=== PATIENT | female | born 1960 | race Caucasian/White ===

== ENCOUNTER 2016-08-11 17:47 | Emergency (ER) | payer OTHER, MEDICAID ==
[~2016-08-11] VITALS: Wt 109.8 kg
[~2016-08-11 17:47] MED LIST: ABILIFY15 MG PO; ACETAMINOPHEN-H1 TA2 PO; ACETAMINOPHEN-O1 TAB PO; ADDERALL 10 MG10 MG PO; ADDERALL 20 MG20 MG PO; ADDERALL XR10 MG PO; ADDERALL15 MG PO; ALDACTONE25 M1 PO; AMOXICILLIN500 MG PO; ANTIBIOTIC O500 U/GM TP; ANTIVERT/2525 M1 PO; AORACILLIN B500 MG PO; APAP/HYDROCODON1 T46 PO; ATENOLOL25 MG PO; ATIVAN0.5 MG PO; ATIVAN1 MG PO; AUGMENTIN 875875 MG PO; BACTROBAN CREAM15 GM PO; BACTROBAN OINT0.9 GM NAS; BACTROBAN OINT22 GM PO; BENTYL10 MG PO; BIAXIN500 MG PO; CARAFATE1 GM PO; CATAFLAM50 MG PO; CEFTIN500 M1 PO; CELEBREX200 MG PO; CELECOXIB100 M1 PO; CIPRO500 MG PO; COREG3.125 MG PO; CYCLOBENZAPRINE10 MG PO; CYCLOBENZAPRINE5 M3 PO; CYMBALTA60 M1 PO; CYMBALTA60 MG PO; DAYPRO600 M1 PO; DEXTROAMPH SACC10 M1 PO; DIFLUCAN100 MG PO; DOXYCYCLINE100 M3 PO; DUONEB 3 MG/3 ML3 M1 NEB; EFFEXOR25 MG PO; Ecotrin325 MG PO; FEROSUL325 MG PO; FIORICET 325 MG1 TAB PO; FIORINAL 325 MG1 CAP PO; FLAGYL500 MG PO; FLEXERIL10 MG PO; FLEXERIL5 MG PO; FLONASE0.05 MG/AC NS; FOLIC ACID1 MG PO; HYDROCODONE BIT1 T11 PO; HYDROCODONE BIT1 T28 PO; HYDROXYCUT; IBU800 M1 PO; K-PHOS500 MG PO; KEFLEX500 MG PO; LOMOTIL 0.025 M1 TA1 PO; LOVENOX30 MG/0.3 SC; MEDROL DOSEPAK4 MG PO; METHYLPRED-DP4 MG PO; METROLOTION TP; MICRO-K10 MEQ PO; MIXED AMPHETAMI20 MG PO; MOBIC7.5 MG PO; MOTRIN800 MG PO; MULTI VITAMINS1 TAB; Micro K10 MEQ PO; Motrin,Rufen800 MG PO; NAPROSYN500 MG PO; NATURE'S BLEND F1 MG PO; NEBULIZER; NEURONTIN100 MG PO; NEURONTIN300 MG PO; NEURONTIN600 MG PO; NEURONTIN800 MG PO; NORCET 500 MG-51 CAP PO; NORCO 5-325 TA1 EACH PO; NORFLEX100 MG PO; NYAMYC100000 U/G T; Nystatin Cream15 GM T; ORASONE20 MG PO; ORPHENADRINE C100 M1 PO; OXY IR5 MG PO; OXYCODONE AND A1 TA3 PO; Ondansetron4 MG PO; PEN-VEE K500 MG PO; PERCOCET 325 MG1 TA2 PO; PHENERGAN25 M3 PO; PREDNICOT10 MG PO; PREDNICOT20 MG PO; PREDNISONE10 MG PO; PREMARIN0.3 MG PO; PRILOSEC20 MG PO; PROAIR HFA0.09 MG/AC IH; PROVENTIL0.09 MG/AC IH; RAYOS5 M1 PO; RESTORIL15 MG PO; SUBOXONE 8 MG-21 TA3 SL; TRAMADOL HCL50 MG PO; TRAMADOL50 MG PO; TYLENOL W/CODEI1 TA2 PO; ULTRAM50 MG PO; VALIUM5 MG PO; VICO10300 PO; VICODIN 5/500 505 MG PO; VICODIN ES 7501 TA1; VICODIN ES 7501 TAB PO; VITAMIN D50000 I3 PO; VOLTAREN GEL1% TP; VOLTAREN50 M1 PO; VOLTAREN50 MG PO; WELLBUTRIN SR150 MG PO; WELLBUTRIN100 M1 PO; XANAX0.5 MG PO; ZANTAC150 MG PO; ZITHROMAX250 MG PO; ZOFRAN ODT4 MG SL; ZOFRAN4 MG PO; Zofran4 MG PO
[2016-08-11] MEDS ORDERED: KEFLEX500 M1 PO (19:34)
[2016-09-22] MEDS ORDERED: LATU20TA PO (11:00)
[2016-09-22] MEDS ORDERED: MULTI-VITAMIN1 EACH PO (11:01)
[2016-09-22] MEDS ORDERED: CYCLOBENZAPRINE10 MG PO (11:01)
[2016-09-22] MEDS ORDERED: AUGMENTIN 875-875 MG PO (12:33)
[2016-09-22] MEDS ORDERED: PREDNISONE10 MG PO (12:33)
== END 2016-08-11 19:37 | disposition home or self-care (01) ==
LOC: ED 17:47
DX: S61.411A Laceration without foreign body of right hand, initial encounter (principal); F17.210 Nicotine dependence, cigarettes, uncomplicated; Z98.84 Bariatric surgery status; Z90.710 Acquired absence of both cervix and uterus; Z96.652 Presence of left artificial knee joint; Z96.641 Presence of right artificial hip joint; Z90.49 Acquired absence of other specified parts of digestive tract; Z88.6 Allergy status to analgesic agent; Z88.1 Allergy status to other antibiotic agents; W45.8XXA Other foreign body or object entering through skin, initial encounter; Y93.89 Activity, other specified; Y92.89 Other specified places as the place of occurrence of the external cause; Y99.9 Unspecified external cause status

== ENCOUNTER 2016-11-11 11:31 | Emergency (ER) | payer OTHER, MEDICAID ==
[~2016-11-11] VITALS: Ht 177.8 cm; Wt 114.3 kg
[~2016-11-11 11:31] MED LIST changes: +AUGMENTIN 875-875 MG PO; +KEFLEX500 M1 PO; +LATU20TA PO; +MULTI-VITAMIN1 EACH PO
[2016-11-11 12:33] LABS: BASO # 0.1 10*3/uL (0.0-0.1); BASO % 0.8 % (0.0-1.0); HEMATOCRIT 39.1 % (37.0-47.0); HEMOGLOBIN 13.1 g/dl (12.0-16.0); LYMPH # 3.7 10*3/uL (1.3-4.4); LYMPH % 42.8 % (27.0-41.0); MEAN CELL VOLUME 102.1 fl (81.0-99.0); MEAN CORPUSCULAR HGB 34.2 pg (27.0-31.0); MEAN CORPUSCULAR HGB CONC 33.5 g/dl (33.0-37.0); MEAN PLATELET VOLUME 9.6 fl (9.6-12.3); MONO # 0.8 10*3/uL (0.1-1.0); MONO % 9.7 % (3.0-9.0); NEUT % 46.6 % (47.0-73.0); PLATELET COUNT AUTOMATED 323 10*3/uL (130-400); RED BLOOD COUNT 3.83 10*6/uL (4.10-5.10); RED CELL DISTRI WIDTH 15.3 % (0-14.5); WHITE BLOOD COUNT 8.6 10*3/uL (4.8-10.8)
[2016-11-11 12:48] LABS: ALBUMIN 3.5 gm/dl (3.1-4.5); ALKALINE PHOSPHATASE 185 U/L (45-117); BILIRUBIN, TOTAL 0.2 mg/dl (0.2-1.0); BUN 9 mg/dl (7-24); CARBON DIOXIDE 21 mmol/L (21-32); CHLORIDE 111 mmol/L (98-107); EST GLOM FILT AFRICAN AMERICAN > 60 ml/min; GLUCOSE 83 mg/dL (65-99); POTASSIUM 3.6 mmol/L (3.5-5.1); SGOT/AST 35 IU/L (3-35); SGPT/ALT 23 U/L (12-78); SODIUM 142 mmol/L (136-145); TOTAL PROTEIN 6.8 gm/dL (6.4-8.2)
[2016-11-11 13:08] LABS: BILIRUBIN NEGATIVE (NEGATIVE); BLOOD NEGATIVE (NEGATIVE); CLARITY CLEAR (CLEAR); COLOR YELLOW (YELLOW); GLUCOSE NEGATIVE (NEGATIVE); KETONE TRACE (NEGATIVE); LEUKO ESTERASE NEGATIVE (NEGATIVE); NITRITE NEGATIVE (NEGATIVE); PH 5.5 (5.0-9.0); PROTEIN NEGATIVE (NEGATIVE); SPECIFIC GRAVITY 1.015 (1.005-1.030); UROBILINOGEN 0.2 E.U./dl (0.2-1.0)
[2016-11-11 13:17] LABS: BACTERIA TRACE; URINE REFLEX COMMENT NO (NO)
[2016-11-11] MEDS ORDERED: BENTYL10 MG PO (14:34)
== END 2016-11-11 14:58 | disposition home or self-care (01) ==
LOC: ED 11:31
PROVIDERS: Emergency Medicine
DX: K58.0 Irritable bowel syndrome with diarrhea (principal); F17.200 Nicotine dependence, unspecified, uncomplicated; G89.29 Other chronic pain; M54.5 Low back pain; J44.9 Chronic obstructive pulmonary disease, unspecified; F41.8 Other specified anxiety disorders; Z98.84 Bariatric surgery status; Z90.710 Acquired absence of both cervix and uterus; Z96.652 Presence of left artificial knee joint; Z90.49 Acquired absence of other specified parts of digestive tract; Z79.899 Other long term (current) drug therapy; Z88.6 Allergy status to analgesic agent

== ENCOUNTER 2016-12-02 19:23 | Inpatient (IN) | payer OTHER, MEDICAID ==
[~2016-12-02] VITALS: Ht 176.5 cm; Wt 120.5 kg
--- NOTE | ~2016-12-02 | CON ---
[place], [place] REPORT OF CONSULTATION NAME: [id number] UNIT #: [id number] ROOM: 410 DOCTOR: SUMEET JAFFE,LELA BIRTHDATE: [birth year] DOS: 12/03/2016 CARDIOLOGY CONSULT REASON FOR CONSULTATION: Chest pain. I personally examined and assessed the patient today. This note is an addendum to the consult note dictated by Ozzie. I examined the patient today. Past medical history reviewed. Rhythm strips and labs reviewed. Dr. Horne's examination and assessment reflects my work. PHYSICAL EXAMINATION: Focused cardiac exam showed: HEART: Regular rhythm, no S3. CHEST: Slightly tender on palpation. LUNGS: Clear anteriorly. IMPRESSION: 1. Chest pain, atypical, myocardial infarction ruled out, nonischemic stress test 04/2016. 2. Palpitations. 3. Left bundle branch block, old. 4. Tobacco smoking. 5. Morbid obesity. 6. Low TSH with normal T4. RECOMMENDATIONS: 1. Her pain is atypical. Continue current medications. 2. The patient counseled to quit smoking and also for weight loss. 3. She can be discharged home today and I would recommend outpatient 48-hour Holter monitor. 4. If she develops recurrent chest pain, then she will need cardiac catheterization. LELA FAY MD CM:CONSTR:REPORT OF CONSULTATION 1524 12/04/16 0349 interface
[2016-12-02 19:34] VITALS: BP 139/80
[2016-12-02 20:02] LABS: BASO % 0.5 % (0.0-1.0); HEMATOCRIT 39.2 % (37.0-47.0); HEMOGLOBIN 12.9 g/dl (12.0-16.0); LYMPH # 2.2 10*3/uL (1.3-4.4); LYMPH % 28.2 % (27.0-41.0); MEAN CELL VOLUME 104.5 fl (81.0-99.0); MEAN CORPUSCULAR HGB 34.4 pg (27.0-31.0); MEAN CORPUSCULAR HGB CONC 32.9 g/dl (33.0-37.0); MEAN PLATELET VOLUME 9.6 fl (9.6-12.3); MONO # 0.7 10*3/uL (0.1-1.0); MONO % 8.4 % (3.0-9.0); NEUT # 4.9 10*3/uL (2.3-7.9); NEUT % 62.6 % (47.0-73.0); PLATELET COUNT AUTOMATED 309 10*3/uL (130-400); RED BLOOD COUNT 3.75 10*6/uL (4.10-5.10); RED CELL DISTRI WIDTH 15.7 % (0-14.5); WHITE BLOOD COUNT 7.9 10*3/uL (4.8-10.8)
[2016-12-02 20:15] LABS: INTERNATIONAL NORM RATIO 0.9 (2.0-3.5)
[2016-12-02 20:19] LABS: ALBUMIN 3.3 gm/dl (3.1-4.5); ALKALINE PHOSPHATASE 199 U/L (45-117); BILIRUBIN, TOTAL 0.5 mg/dl (0.2-1.0); BUN 11 mg/dl (7-24); CARBON DIOXIDE 22 mmol/L (21-32); CHLORIDE 114 mmol/L (98-107); CPK 76 U/L (26-192); EST GLOM FILT AFRICAN AMERICAN > 60 ml/min; GLUCOSE 67 mg/dL (65-99); MAGNESIUM 1.8 mg/dL (1.5-2.1); SGOT/AST 16 IU/L (3-35); SGPT/ALT 12 U/L (12-78); SODIUM 142 mmol/L (136-145); TOTAL PROTEIN 6.6 gm/dL (6.4-8.2)
[2016-12-02 20:20] LABS: CKMB 2.7 ng/ml (0.5-3.6)
[2016-12-02 20:29] LABS: TROPONIN I < 0.015 ng/ml (<0.045)
[2016-12-02 20:32] VITALS: BP 152/99
[2016-12-02 21:26] VITALS: BP 168/109
[2016-12-02 21:44] VITALS: BP 144/88
[2016-12-02 21:44] LABS: BILIRUBIN NEGATIVE (NEGATIVE); BLOOD NEGATIVE (NEGATIVE); CLARITY SL CLOUDY (CLEAR); COLOR YELLOW (YELLOW); GLUCOSE NEGATIVE (NEGATIVE); KETONE NEGATIVE (NEGATIVE); LEUKO ESTERASE NEGATIVE (NEGATIVE); NITRITE NEGATIVE (NEGATIVE); PH 5.5 (5.0-9.0); PROTEIN NEGATIVE (NEGATIVE); UROBILINOGEN 0.2 E.U./dl (0.2-1.0)
[2016-12-02 21:51] LABS: BACTERIA TRACE; URINE REFLEX COMMENT NO (NO)
[2016-12-02 22:30] VITALS: BP 148/95
[2016-12-02 23:31] VITALS: BP 161/93
[2016-12-03] VITALS: BP 140/75
[2016-12-03 00:25] VITALS: BP 140/75
[2016-12-03] MEDS ORDERED: BENTYL10 MG PO (00:51)
[2016-12-03] MEDS ORDERED: ADDERALL XR20 MG PO (00:55)
[2016-12-03] MEDS ORDERED: ADDERALL 10 MG10 MG PO (00:56)
[2016-12-03 06:49] LABS: BASO % 0.5 % (0.0-1.0); HEMATOCRIT 38.2 % (37.0-47.0); HEMOGLOBIN 12.5 g/dl (12.0-16.0); LYMPH # 1.9 10*3/uL (1.3-4.4); LYMPH % 33.8 % (27.0-41.0); MEAN CELL VOLUME 104.1 fl (81.0-99.0); MEAN CORPUSCULAR HGB 34.1 pg (27.0-31.0); MEAN CORPUSCULAR HGB CONC 32.7 g/dl (33.0-37.0); MEAN PLATELET VOLUME 9.6 fl (9.6-12.3); MONO # 0.4 10*3/uL (0.1-1.0); MONO % 7.5 % (3.0-9.0); NEUT # 3.3 10*3/uL (2.3-7.9); NEUT % 57.8 % (47.0-73.0); PLATELET COUNT AUTOMATED 302 10*3/uL (130-400); RED BLOOD COUNT 3.67 10*6/uL (4.10-5.10); RED CELL DISTRI WIDTH 15.7 % (0-14.5); WHITE BLOOD COUNT 5.7 10*3/uL (4.8-10.8)
[2016-12-03 07:07] LABS: CKMB 1.7 ng/ml (0.5-3.6)
[2016-12-03 07:10] LABS: CPK 46 U/L (26-192)
[2016-12-03 07:11] LABS: TROPONIN I < 0.015 ng/ml (<0.045)
[2016-12-03 07:17] LABS: PROTHROMBIN TIME 10.3 SECONDS (9.0-12.4)
[2016-12-03 07:27] LABS: CHLORIDE 114 mmol/L (98-107); POTASSIUM 3.8 mmol/L (3.5-5.1); SODIUM 144 mmol/L (136-145)
[2016-12-03 07:39] LABS: BUN 12 mg/dl (7-24); CARBON DIOXIDE 25 mmol/L (21-32); CHOLESTEROL 136 mg/dL (<200); EST GLOM FILT AFRICAN AMERICAN > 60 ml/min; FREE T4 0.83 ng/dl (0.76-1.46); GLUCOSE 90 mg/dL (65-99); HDL CHOLESTEROL 57 mg/dl (40-60); LDL CHOLESTEROL 62 mg/dL (9-159); PHOSPHOROUS 3.2 mg/dL (2.5-4.9); THYROID STIM HORMONE (HS) 0.183 uIU/ml (0.358-4.75); TRIGLYCERIDES 87 mg/dl (<150); VLDL CHOLESTEROL 17 mg/dL (6-40)
[2016-12-03 08:00] VITALS: BP 147/89
[2016-12-03 12:00] VITALS: BP 111/94
[2016-12-03 12:20] LABS: CKMB 1.7 ng/ml (0.5-3.6); CPK 52 U/L (26-192); TROPONIN I < 0.015 ng/ml (<0.045)
== END 2016-12-03 15:58 | disposition home or self-care (01) | DRG 313 ==
LOC: ED 19:23 → 4E 22:47 → EDHOLD 22:47 → 4E 23:09
PROVIDERS: Emergency Medicine Emergency Medical Services; Hospitalist; Registered Nurse
DX: R07.89 Other chest pain (principal); E44.1 Mild protein-calorie malnutrition; T81.89XA Other complications of procedures, not elsewhere classified, initial encounter; I50.9 Heart failure, unspecified; Z96.652 Presence of left artificial knee joint; F32.9 Major depressive disorder, single episode, unspecified; F41.9 Anxiety disorder, unspecified; I44.7 Left bundle-branch block, unspecified; E55.9 Vitamin D deficiency, unspecified; E66.01 Morbid (severe) obesity due to excess calories; K58.9 Irritable bowel syndrome, unspecified; F17.210 Nicotine dependence, cigarettes, uncomplicated; G89.29 Other chronic pain; M54.2 Cervicalgia; Z90.710 Acquired absence of both cervix and uterus; Z90.49 Acquired absence of other specified parts of digestive tract; Z83.3 Family history of diabetes mellitus; Z88.8 Allergy status to other drugs, medicaments and biological substances; Z79.899 Other long term (current) drug therapy; Z79.1 Long term (current) use of non-steroidal anti-inflammatories (NSAID); Z68.37 Body mass index [BMI] 37.0-37.9, adult

== ENCOUNTER → 2016-12-20 | Outpatient (CLI) | payer OTHER, MEDICAID ==
[~2016-12-20] MED LIST changes: +ADDERALL XR20 MG PO
[2016-12-20 11:52] LABS: BASO # 0.1 10*3/uL (0.0-0.1); BASO % 1.1 % (0.0-1.0); HEMOGLOBIN 13.8 g/dl (12.0-16.0); LYMPH # 1.8 10*3/uL (1.3-4.4); LYMPH % 33.4 % (27.0-41.0); MEAN CELL VOLUME 104.2 fl (81.0-99.0); MEAN CORPUSCULAR HGB 34.2 pg (27.0-31.0); MEAN CORPUSCULAR HGB CONC 32.9 g/dl (33.0-37.0); MEAN PLATELET VOLUME 9.7 fl (9.6-12.3); MONO # 0.4 10*3/uL (0.1-1.0); MONO % 7.6 % (3.0-9.0); NEUT # 3.2 10*3/uL (2.3-7.9); NEUT % 57.7 % (47.0-73.0); PLATELET COUNT AUTOMATED 300 10*3/uL (130-400); RED BLOOD COUNT 4.03 10*6/uL (4.10-5.10); RED CELL DISTRI WIDTH 15.1 % (0-14.5); WHITE BLOOD COUNT 5.5 10*3/uL (4.8-10.8)
[2016-12-20 12:20] LABS: ALBUMIN 3.4 gm/dl (3.1-4.5); ALKALINE PHOSPHATASE 187 U/L (45-117); BILIRUBIN, TOTAL 0.3 mg/dl (0.2-1.0); BUN 13 mg/dl (7-24); CARBON DIOXIDE 23 mmol/L (21-32); CHLORIDE 111 mmol/L (98-107); CHOLESTEROL 134 mg/dL (<200); EST GLOM FILT AFRICAN AMERICAN > 60 ml/min; GLUCOSE 91 mg/dL (65-99); HDL CHOLESTEROL 42 mg/dl (40-60); LDL CHOLESTEROL 64 mg/dL (9-159); SGOT/AST 15 IU/L (3-35); SGPT/ALT 11 U/L (12-78); SODIUM 142 mmol/L (136-145); TOTAL PROTEIN 6.7 gm/dL (6.4-8.2); TRIGLYCERIDES 139 mg/dl (<150); VLDL CHOLESTEROL 28 mg/dL (6-40)
[2016-12-20 12:27] LABS: THYROID STIM HORMONE (HS) 0.307 uIU/ml (0.358-4.75)
== END | disposition home or self-care (01) ==
LOC: LAB 11:28
PROVIDERS: Internal Medicine
DX: Z13.220 Encounter for screening for lipoid disorders (principal); I11.0 Hypertensive heart disease with heart failure; I50.9 Heart failure, unspecified; D53.9 Nutritional anemia, unspecified; F41.9 Anxiety disorder, unspecified; D50.9 Iron deficiency anemia, unspecified; E53.8 Deficiency of other specified B group vitamins

== ENCOUNTER 2017-06-08 17:44 | Emergency (ER) | payer OTHER, MEDICAID ==
[~2017-06-08] VITALS: Ht 175.2 cm; Wt 161.0 kg
== END 2017-06-08 19:58 | disposition home or self-care (01) ==
LOC: ED 17:44
DX: S16.1XXA Strain of muscle, fascia and tendon at neck level, initial encounter (principal); M54.6 Pain in thoracic spine; F17.210 Nicotine dependence, cigarettes, uncomplicated; G89.29 Other chronic pain; J44.9 Chronic obstructive pulmonary disease, unspecified; I50.9 Heart failure, unspecified; I44.7 Left bundle-branch block, unspecified; E66.9 Obesity, unspecified; Z98.84 Bariatric surgery status; Z90.710 Acquired absence of both cervix and uterus; Z96.652 Presence of left artificial knee joint; Z96.641 Presence of right artificial hip joint; Z90.49 Acquired absence of other specified parts of digestive tract; Z79.899 Other long term (current) drug therapy; Z88.6 Allergy status to analgesic agent; W10.9XXA Fall (on) (from) unspecified stairs and steps, initial encounter; Y93.89 Activity, other specified; Y92.89 Other specified places as the place of occurrence of the external cause; Y99.9 Unspecified external cause status

== ENCOUNTER 2017-07-12 15:13 | Inpatient (IN) | payer OTHER, MEDICAID ==
[~2017-07-12] VITALS: Wt 115.8 kg
--- NOTE | ~2017-07-12 | EKG ---
[place], [place] ELECTROCARDIOGRAM REPORT NAME: HARVEY NGUYỄN UNIT #: [id number] ROOM: 531 DOCTOR: SUMEET JAFFE,LELA BIRTHDATE: [birth year] DOS: 07/12/2017 TIME: 1648 hours. IMPRESSION: 1. Sinus rhythm. 2. Left bundle-branch block. LELA FAY MD CM:EKGRPT:ELECTROCARDIOGRAM REPORT [id number] LELA FAY MD
[~2017-07-12 15:13] MED LIST changes: +PENICILLIN VK500 MG PO; +PERCOCET 10-321 EACH PO
[2017-07-12 15:46] VITALS: BP 134/79
[2017-07-12 17:14] LABS: HEMATOCRIT 34.3 % (37.0-47.0); HEMOGLOBIN 11.6 g/dl (12.0-16.0); MEAN CELL VOLUME 111.7 fl (81.0-99.0); MEAN CORPUSCULAR HGB 37.8 pg (27.0-31.0); MEAN CORPUSCULAR HGB CONC 33.8 g/dl (33.0-37.0); MEAN PLATELET VOLUME 9.4 fl (9.6-12.3); PLATELET COUNT AUTOMATED 221 10*3/uL (130-400); RED BLOOD COUNT 3.07 10*6/uL (4.10-5.10); RED CELL DISTRI WIDTH 15.3 % (0-14.5); WHITE BLOOD COUNT 10.9 10*3/uL (4.8-10.8)
[2017-07-12 17:32] LABS: ALBUMIN 3.4 gm/dl (3.1-4.5); ALKALINE PHOSPHATASE 170 U/L (45-117); BUN 19 mg/dl (7-24); CHLORIDE 105 mmol/L (98-107); CREATININE 0.93 mg/dL (0.55-1.02); POTASSIUM 3.7 mmol/L (3.5-5.1); SGOT/AST 17 IU/L (3-35); SGPT/ALT 16 U/L (12-78); SODIUM 137 mmol/L (136-145); TOTAL CELLS COUNTED 100 #CELLS; TOTAL PROTEIN 6.8 gm/dL (6.4-8.2)
[2017-07-12 17:33] LABS: PLATELET SUFFICIENCY NORMAL (NORMAL)
[2017-07-12 17:36] LABS: TROPONIN I < 0.015 ng/ml (<0.045)
[2017-07-12 18:10] VITALS: BP 115/64
[2017-07-12 20:00] VITALS: BP 110/61
[2017-07-13] VITALS: BP 128/66
[2017-07-13 06:35] LABS: MEAN CORPUSCULAR HGB 38.8 pg (27.0-31.0); MEAN CORPUSCULAR HGB CONC 35.3 g/dl (33.0-37.0); MEAN PLATELET VOLUME 9.5 fl (9.6-12.3); PLATELET COUNT AUTOMATED 240 10*3/uL (130-400); RED BLOOD COUNT 3.09 10*6/uL (4.10-5.10); RED CELL DISTRI WIDTH 14.9 % (0-14.5); WHITE BLOOD COUNT 11.6 10*3/uL (4.8-10.8)
[2017-07-13 06:52] LABS: ALBUMIN 3.3 gm/dl (3.1-4.5); BUN 11 mg/dl (7-24); CHLORIDE 106 mmol/L (98-107); CREATININE 0.69 mg/dL (0.55-1.02); PHOSPHOROUS 2.1 mg/dL (2.5-4.9); POTASSIUM 3.5 mmol/L (3.5-5.1); SGOT/AST 12 IU/L (3-35); SGPT/ALT 14 U/L (12-78); SODIUM 139 mmol/L (136-145); TOTAL PROTEIN 6.9 gm/dL (6.4-8.2)
[2017-07-13 06:57] LABS: ALKALINE PHOSPHATASE 161 U/L (45-117); FREE T4 1.21 ng/dl (0.76-1.46)
[2017-07-13 07:03] LABS: ACT PARTIAL THROMBO TIME 25.5 SECONDS (20.8-31.5)
[2017-07-13 07:28] LABS: ATYPICAL LYMPHS 3 % (0-0); PLATELET SUFFICIENCY NORMAL (NORMAL); TOTAL CELLS COUNTED 100 #CELLS
[2017-07-13 08:00] VITALS: BP 132/62
[2017-07-13 12:00] VITALS: BP 105/56
[2017-07-13 16:00] VITALS: BP 111/56
[2017-07-13 20:00] VITALS: BP 104/48
[2017-07-14] VITALS: BP 134/83
[2017-07-14 06:30] LABS: HEMATOCRIT 32.5 % (37.0-47.0); HEMOGLOBIN 11.3 g/dl (12.0-16.0); MEAN CELL VOLUME 109.8 fl (81.0-99.0); MEAN CORPUSCULAR HGB 38.2 pg (27.0-31.0); MEAN CORPUSCULAR HGB CONC 34.8 g/dl (33.0-37.0); MEAN PLATELET VOLUME 9.4 fl (9.6-12.3); PLATELET COUNT AUTOMATED 225 10*3/uL (130-400); RED BLOOD COUNT 2.96 10*6/uL (4.10-5.10)
[2017-07-14 07:05] LABS: TOTAL CELLS COUNTED 100 #CELLS
[2017-07-14 07:06] LABS: PLATELET SUFFICIENCY NORMAL (NORMAL)
[2017-07-14 07:18] LABS: BUN 9 mg/dl (7-24); CHLORIDE 107 mmol/L (98-107); CREATININE 0.51 mg/dL (0.55-1.02); POTASSIUM 3.1 mmol/L (3.5-5.1); SODIUM 142 mmol/L (136-145)
[2017-07-14 08:00] VITALS: BP 124/84
[2017-07-14 16:00] VITALS: BP 119/62
[2017-07-14 20:00] VITALS: BP 132/72
[2017-07-15] VITALS: BP 109/53
[2017-07-15 06:16] LABS: HEMATOCRIT 32.8 % (37.0-47.0); HEMOGLOBIN 11.2 g/dl (12.0-16.0); MEAN CELL VOLUME 112.7 fl (81.0-99.0); MEAN CORPUSCULAR HGB 38.5 pg (27.0-31.0); MEAN CORPUSCULAR HGB CONC 34.1 g/dl (33.0-37.0); MEAN PLATELET VOLUME 9.9 fl (9.6-12.3); PLATELET COUNT AUTOMATED 271 10*3/uL (130-400); RED BLOOD COUNT 2.91 10*6/uL (4.10-5.10); RED CELL DISTRI WIDTH 15.4 % (0-14.5); WHITE BLOOD COUNT 10.2 10*3/uL (4.8-10.8)
[2017-07-15 06:42] LABS: CHLORIDE 107 mmol/L (98-107); POTASSIUM 3.7 mmol/L (3.5-5.1); SODIUM 141 mmol/L (136-145)
[2017-07-15 06:48] LABS: BUN 13 mg/dl (7-24); CREATININE 0.66 mg/dL (0.55-1.02); PHOSPHOROUS 3.4 mg/dL (2.5-4.9)
[2017-07-15 06:55] LABS: PLATELET SUFFICIENCY NORMAL (NORMAL); POLYCHROMASIA SLIGHT; TOTAL CELLS COUNTED 100 #CELLS
[2017-07-15 08:00] VITALS: BP 120/69
[2017-07-15 12:00] VITALS: BP 124/81
[2017-07-15 16:00] VITALS: BP 104/61
[2017-07-15 20:00] VITALS: BP 139/84
[2017-07-16] VITALS: BP 142/50
[2017-07-16 06:27] LABS: HEMATOCRIT 34.4 % (37.0-47.0); HEMOGLOBIN 11.6 g/dl (12.0-16.0); MEAN CELL VOLUME 112.4 fl (81.0-99.0); MEAN CORPUSCULAR HGB 37.9 pg (27.0-31.0); MEAN CORPUSCULAR HGB CONC 33.7 g/dl (33.0-37.0); MEAN PLATELET VOLUME 9.3 fl (9.6-12.3); PLATELET COUNT AUTOMATED 307 10*3/uL (130-400); RED BLOOD COUNT 3.06 10*6/uL (4.10-5.10); RED CELL DISTRI WIDTH 15.1 % (0-14.5)
[2017-07-16 06:57] LABS: BUN 16 mg/dl (7-24); CHLORIDE 107 mmol/L (98-107); PHOSPHOROUS 4.2 mg/dL (2.5-4.9); POTASSIUM 3.9 mmol/L (3.5-5.1); SODIUM 141 mmol/L (136-145)
[2017-07-16 07:27] LABS: PLATELET SUFFICIENCY NORMAL (NORMAL); TOTAL CELLS COUNTED 100 #CELLS
[2017-07-16 08:00] VITALS: BP 128/78
[2017-07-16] MEDS ORDERED: B-12500 MC1 PO (11:49)
[2017-07-16] MEDS ORDERED: NATURE'S BLEND F1 MG PO (11:49)
[2017-07-16] MEDS ORDERED: VITAMIN D-32000 UNIT PO (11:49)
[2017-07-16] MEDS ORDERED: LEVAQUIN500 M2 PO (11:49)
[2017-07-16 12:00] VITALS: BP 124/69
== END 2017-07-16 13:00 | disposition home or self-care (01) | DRG 190 ==
LOC: ED 15:13 → EDHOLD 16:40 → 5E 16:40
PROVIDERS: Emergency Medicine; Internal Medicine; Internal Medicine Nephrology
DX: J44.0 Chronic obstructive pulmonary disease with (acute) lower respiratory infection (principal); J18.9 Pneumonia, unspecified organism; I50.32 Chronic diastolic (congestive) heart failure; D51.9 Vitamin B12 deficiency anemia, unspecified; D52.9 Folate deficiency anemia, unspecified; F41.8 Other specified anxiety disorders; M54.5 Low back pain; G89.29 Other chronic pain; J44.1 Chronic obstructive pulmonary disease with (acute) exacerbation; R73.9 Hyperglycemia, unspecified; D72.825 Bandemia; M54.2 Cervicalgia; Z96.652 Presence of left artificial knee joint; Z96.641 Presence of right artificial hip joint; F17.210 Nicotine dependence, cigarettes, uncomplicated; Z90.49 Acquired absence of other specified parts of digestive tract; Z83.3 Family history of diabetes mellitus; Z81.8 Family history of other mental and behavioral disorders; Z98.84 Bariatric surgery status; Z90.710 Acquired absence of both cervix and uterus; Z88.8 Allergy status to other drugs, medicaments and biological substances; Z79.899 Other long term (current) drug therapy; Z68.37 Body mass index [BMI] 37.0-37.9, adult; Z71.6 Tobacco abuse counseling; Z91.81 History of falling; Z82.49 Family history of ischemic heart disease and other diseases of the circulatory system; E66.09 Other obesity due to excess calories

== ENCOUNTER 2018-06-15 16:50 | Emergency (ER) | payer OTHER ==
[~2018-06-15] VITALS: Ht 175.2 cm; Wt 109.3 kg
[~2018-06-15 16:50] MED LIST changes: +ADDERALL 30 MG30 MG PO; -ADDERALL XR20 MG PO; +B-12500 MC1 PO; +DICYCLOMINE HCL20 MG PO; +DIFLUCAN150 MG PO; +DULCOLAX5 M1 PO; +GABAPENTIN100 M2 PO; +HYDROXYZINE PAM25 M1 PO; +LEVAQUIN500 M2 PO; +MIRALAX17 GM PO; +PERCOCET 5-3251 EACH PO; +PERCOCET 7.5-31 EACH PO; +PHARMASSURE FO0.4 MG PO; +VITAMIN D-32000 UNIT PO; +VITAMIN D5000 UNI1 PO
[2018-06-15] MEDS ORDERED: TESSALON PERLE100 M1 PO ×2 (18:05→18:44)
[2018-06-15] MEDS ORDERED: PREDNISONE50 MG PO ×2 (18:05→18:44)
[2018-06-15] MEDS ORDERED: AMOXICILLIN500 M2 PO ×2 (18:05→18:44)
== END 2018-06-15 18:50 | disposition home or self-care (01) ==
LOC: ED 16:50
DX: J20.9 Acute bronchitis, unspecified (principal); F17.210 Nicotine dependence, cigarettes, uncomplicated; Z88.6 Allergy status to analgesic agent; Z79.899 Other long term (current) drug therapy; Z90.710 Acquired absence of both cervix and uterus; Z90.49 Acquired absence of other specified parts of digestive tract

== ENCOUNTER 2018-07-18 15:41 | Emergency (ER) | payer OTHER, MEDICAID ==
[~2018-07-18] VITALS: Ht 175.2 cm; Wt 108.9 kg
[~2018-07-18 15:41] MED LIST changes: +AMOXICILLIN500 M2 PO; +PREDNISONE50 MG PO; +TESSALON PERLE100 M1 PO
[2018-07-18 16:45] LABS: BASO % 0.3 % (0.0-1.0); EOS # 0.1 10*3/uL (0.0-0.4); EOS % 0.7 % (1.0-4.0); HEMATOCRIT 37.1 % (37.0-47.0); HEMOGLOBIN 12.1 g/dl (12.0-16.0); LYMPH # 0.8 10*3/uL (1.3-4.4); LYMPH % 7.1 % (27.0-41.0); MEAN CELL VOLUME 106.6 fl (81.0-99.0); MEAN CORPUSCULAR HGB 34.8 pg (27.0-31.0); MEAN CORPUSCULAR HGB CONC 32.6 g/dl (33.0-37.0); MEAN PLATELET VOLUME 9.5 fl (9.6-12.3); NEUT # 8.8 10*3/uL (2.3-7.9); NEUT % 82.2 % (47.0-73.0); PLATELET COUNT AUTOMATED 330 10*3/uL (130-400); RED BLOOD COUNT 3.48 10*6/uL (4.10-5.10); RED CELL DISTRI WIDTH 16.5 % (0-14.5); WHITE BLOOD COUNT 10.7 10*3/uL (4.8-10.8)
[2018-07-18 17:07] LABS: ALBUMIN 2.7 gm/dl (3.1-4.5); ALKALINE PHOSPHATASE 201 U/L (45-117); BUN 16 mg/dl (7-24); CHLORIDE 111 mmol/L (98-107); CREATININE 0.75 mg/dL (0.55-1.02); POTASSIUM 3.2 mmol/L (3.5-5.1); SGOT/AST 6 IU/L (3-35); SGPT/ALT 15 U/L (12-78); SODIUM 138 mmol/L (136-145); TOTAL PROTEIN 6.4 gm/dL (6.4-8.2)
[2019-02-21] MEDS ORDERED: GABAPENTIN800 MG PO (01:54)
[2019-02-25] MEDS ORDERED: B12,B-12,B 12500 MC1 PO (14:19)
[2019-02-25] MEDS ORDERED: OMNICEF300 MG PO (15:06)
== END 2018-07-18 18:30 | disposition home or self-care (01) ==
LOC: ED 15:41
PROVIDERS: Emergency Medicine
DX: G89.18 Other acute postprocedural pain (principal); J44.9 Chronic obstructive pulmonary disease, unspecified; E66.9 Obesity, unspecified; F17.210 Nicotine dependence, cigarettes, uncomplicated; Z96.652 Presence of left artificial knee joint; Z88.6 Allergy status to analgesic agent; Z79.899 Other long term (current) drug therapy

== ENCOUNTER 2018-08-03 17:27 | Inpatient (IN) | payer OTHER, MEDICAID ==
[~2018-08-03] VITALS: Ht 176.7 cm; Wt 113.5 kg
[2018-08-03 17:29] VITALS: BP 127/71
[2018-08-03] MEDS ORDERED: AMERINET CHOICE1 GM IV (17:48)
[2018-08-03] MEDS ORDERED: LATU120T PO (17:49)
[2018-08-03] MEDS ORDERED: POTASSIUM CITR15 ME1 PO (17:49)
[2018-08-03] MEDS ORDERED: B12,B-12,B 12500 MC1 PO (17:50)
[2018-08-03 18:32] LABS: HEMATOCRIT 27.5 % (37.0-47.0); HEMOGLOBIN 8.5 g/dl (12.0-16.0); MEAN CORPUSCULAR HGB CONC 30.9 g/dl (33.0-37.0); MEAN PLATELET VOLUME 9.1 fl (9.6-12.3); PLATELET COUNT AUTOMATED 504 10*3/uL (130-400); RED CELL DISTRI WIDTH 15.9 % (0-14.5); WHITE BLOOD COUNT 11.5 10*3/uL (4.8-10.8)
[2018-08-03 18:52] LABS: ALBUMIN 2.2 gm/dl (3.1-4.5); ALKALINE PHOSPHATASE 175 U/L (45-117); BUN 9 mg/dl (7-24); CHLORIDE 104 mmol/L (98-107); CREATININE 0.83 mg/dL (0.55-1.02); SGOT/AST 10 IU/L (3-35); SGPT/ALT 12 U/L (12-78); SODIUM 140 mmol/L (136-145); TOTAL PROTEIN 6.4 gm/dL (6.4-8.2)
[2018-08-03 19:06] LABS: BASOPHILS 3 % (0-1); PLATELET SUFFICIENCY HIGH (NORMAL); TOTAL CELLS COUNTED 100 #CELLS
[2018-08-03 19:49] VITALS: BP 124/78
[2018-08-03 20:24] VITALS: BP 128/74
--- NOTE | 2018-08-03 20:24 | NUR ---
PT RESTING QUELIZA, VOICES NO COMPLAINTS, BOX LUNCH WAS PROVIDED.
[2018-08-03 20:45] VITALS: BP 133/61
--- NOTE | 2018-08-03 20:45 | NUR ---
A 57YR OLD FEMALE, admitted to 5E, under the services of SHIRA Tabor DO with a diagnosis of ANEMIA,PRE SYNCOPE. Chief complaint is WAS SENT DUE TO ABNORMAL POTASSIUM LEVEL. Patient arrived via ambulatory from ER. Monitor applied. Initial assessment completed. Vital signs taken and recorded. SHIRA TABOR DO notified of admission to the unit. Orders received. See assessment for past medical history, medications and allergies. Patient and/or family oriented to unit 5E. visitation policy reviewed. Clothing/patient valuable form completed. JUN IBARRA
--- NOTE | 2018-08-03 21:15 | NUR ---
Notified Dr. Longoria about medication reconciliation being updated and verified with patient who know her medications and dosages and who is alos alert and oriented x 3. Also notified of post op wound on rt knee and needing orders.
--- NOTE | 2018-08-03 22:57 | NUR ---
Medicated with Percocet po prn for rt knee pain. Will monitor effectiveness. Call light within reach.
[2018-08-04] VITALS: BP 105/64
[2018-08-04 06:39] LABS: HEMATOCRIT 25.8 % (37.0-47.0); HEMOGLOBIN 7.8 g/dl (12.0-16.0); MEAN CELL VOLUME 109.3 fl (81.0-99.0); MEAN CORPUSCULAR HGB 33.1 pg (27.0-31.0); MEAN CORPUSCULAR HGB CONC 30.2 g/dl (33.0-37.0); MEAN PLATELET VOLUME 9.3 fl (9.6-12.3); PLATELET COUNT AUTOMATED 412 10*3/uL (130-400); RED BLOOD COUNT 2.36 10*6/uL (4.10-5.10); RED CELL DISTRI WIDTH 15.9 % (0-14.5); WHITE BLOOD COUNT 9.6 10*3/uL (4.8-10.8)
[2018-08-04 06:52] LABS: ACT PARTIAL THROMBO TIME 32.9 SECONDS (20.8-31.5)
[2018-08-04 06:53] LABS: ALKALINE PHOSPHATASE 160 U/L (45-117); BUN 9 mg/dl (7-24); CHLORIDE 106 mmol/L (98-107); CHOLESTEROL 74 mg/dL (<200); CREATININE 0.77 mg/dL (0.55-1.02); POTASSIUM 2.9 mmol/L (3.5-5.1); SGOT/AST 8 IU/L (3-35); SGPT/ALT 10 U/L (12-78); SODIUM 142 mmol/L (136-145); TOTAL PROTEIN 5.7 gm/dL (6.4-8.2); TRIGLYCERIDES 69 mg/dl (<150); VANCOMYCIN TROUGH 16.1 ug/mL (10-20); VLDL CHOLESTEROL 14 mg/dL (6-40)
[2018-08-04 06:54] LABS: FREE T4 0.98 ng/dl (0.76-1.46); HDL CHOLESTEROL 32 mg/dl (40-60); LDL CHOLESTEROL 28 mg/dL (9-159)
[2018-08-04 07:25] LABS: BASOPHILS 1 % (0-1); TOTAL CELLS COUNTED 100 #CELLS
[2018-08-04 07:26] LABS: PLATELET SUFFICIENCY HIGH (NORMAL)
[2018-08-04 08:17] LABS: VITAMIN D, 25-HYDROXY 20.7 ng/mL (30-100)
--- NOTE | 2018-08-04 11:56 | NUR ---
HARVEY NGUYỄN [id number] Please refer to the physician's history and physical for past medical history, comorbid conditions, and allergies. Diagnosis: ANEMIA,PRE-SYNCOPE Mike Score: 21,LOW OR NO RISK WOUND DESCRIPTIONS: Patient has two intact scabs noted to right knee. Patient stated she had surgery back on 07/09/[address] Buddy Butler out of [place]. She stated she was instructed to leave the area open to air and has seen him several times since surgery and hasn't been told anything different. Patient has mulitple eccymotics areas to bilateral upper extremities and stated this occured from her previous hospital admission. Location of the wound: right breast Thickness: Partial Size: 0.7cm x 0.9cm x 0.1cm Tunneling: none Undermining: none Sinus Tract: none Presence of Exudate: Serosanguineous Amount: Light Color: Red Odor: None Periwound Skin Appearance: Normal Wound edges: approximated Pain (associated with wound): none at time of assessment How does patient state this happened? pt stated this area opens and closes all the time its along an incision and this has been ongoing but it last opened 1 week ago. Surface the patient is resting on: Isoflex SKIN PREVENTION RECOMMENDATION: 1. Pressure redistribution support surface as appropriate 2. Elevate heels 3. Remove boots/TEDS every shift and reapply 4. Head of bed 30 degrees as tolerated 5. Assess nutrition and hydration 6. Manage moisture 7. Avoid the use of containment devices while in bed 8. Use absorptive products on surfaces limit layers of linens on bed 9. Turn and reposition every 1-2 hours in bed and every 1 hour in chair as tolerated 10. Weight shifts every 15 minutes while up in chair 11. Offloading with pillows or device to keep heels elevated off bed 12. Monitor skin at least every shift 13. Inspect under medical devices twice a day WOUND TREATMENT RECOMMENDATIONS: Partial thickness guidelines: Cleanse right breast with nss and apply sureprep around the wound therahoney to wound bed and cover with bandaid. Recommend follow up for wound care in outpatient setting patient refused at this time.
[2018-08-04 12:00] VITALS: BP 118/63
--- NOTE | 2018-08-04 13:41 | NUR ---
PT MEDICATED WITH PRN DILAUDID FOR C/O RIGHT KNEE PAIN. PT RATES PAIN 9/10. WILL REACCESS.
--- NOTE | 2018-08-04 13:49 | NUR ---
Technical Supervisor in to talk to patient. Patient states lives at HOME with AONE. There are SOME steps in the home. Physician: CODI Pharmacy: [facility] services: [place] Patient's level of ADLs: INDEPENDENT Patient has working utilities: YES DME: VIJAYA Follow-up physician's appointment after d/c: WILL BE MADE BY HOSPITALIST NURSE DIRECTOR ON DISCHARGE Does patient want to access PORTAL?: NO Discharge plan PT STATES SHE LIVES AT HOME ALONE. PT HAS BEEN GETTING HOME HEALTH THROUGHT [facility] AND IV ANTIBIOTICS AT HOME, STATES SHE HAS 5-8 WEEKS LEFT OF ANTIBIOTICS. STATES NO OTHER NEEDS. WILL CONTINUE TO FOLLOW.. [place] HERNANDEZ
--- NOTE | 2018-08-04 13:55 | NUR ---
patient being transported off the floor for other testing. not availalbe for echo.
[2018-08-04 16:00] VITALS: BP 125/68
[2018-08-04 20:00] VITALS: BP 151/88
--- NOTE | 2018-08-04 21:48 | NUR ---
DILAUDID GIVEN FOR 9/10 PAIN TO RT LEG/KNEE PAIN. WILL MONITOR.
[2018-08-05] VITALS: BP 142/71
--- NOTE | 2018-08-05 01:40 | NUR ---
EARLIER PAIN MEDS APPEAR EFFECTIVE. PT SLEEPING AT THIS TIME IN NO DISTRESS.
--- NOTE | 2018-08-05 03:22 | NUR ---
dilaudid given for rt knee pain. will mnitor
[2018-08-05 06:45] LABS: BASO # 0.1 10*3/uL (0.0-0.1); BASO % 0.7 % (0.0-1.0); EOS # 0.2 10*3/uL (0.0-0.4); EOS % 2.7 % (1.0-4.0); HEMATOCRIT 25.6 % (37.0-47.0); LYMPH # 2.1 10*3/uL (1.3-4.4); LYMPH % 27.4 % (27.0-41.0); MEAN CELL VOLUME 107.1 fl (81.0-99.0); MEAN CORPUSCULAR HGB 33.5 pg (27.0-31.0); MEAN CORPUSCULAR HGB CONC 31.3 g/dl (33.0-37.0); MEAN PLATELET VOLUME 9.3 fl (9.6-12.3); MONO # 1.1 10*3/uL (0.1-1.0); MONO % 14.2 % (3.0-9.0); NEUT # 4.1 10*3/uL (2.3-7.9); NEUT % 54.6 % (47.0-73.0); PLATELET COUNT AUTOMATED 402 10*3/uL (130-400); RED BLOOD COUNT 2.39 10*6/uL (4.10-5.10); RED CELL DISTRI WIDTH 15.7 % (0-14.5); WHITE BLOOD COUNT 7.5 10*3/uL (4.8-10.8)
[2018-08-05 07:14] LABS: ALBUMIN 2.2 gm/dl (3.1-4.5); ALKALINE PHOSPHATASE 158 U/L (45-117); BUN 11 mg/dl (7-24); CHLORIDE 105 mmol/L (98-107); CREATININE 0.77 mg/dL (0.55-1.02); POTASSIUM 3.2 mmol/L (3.5-5.1); SGOT/AST 8 IU/L (3-35); SGPT/ALT 8 U/L (12-78); SODIUM 141 mmol/L (136-145)
--- NOTE | 2018-08-05 07:43 | NUR ---
VS STABLE, A&O X3 TO PLACE SELF AND DATE, HEART SOUNDS ARE NORMAL, LUNGS ARE CLEAR THROUGHOUT ALL LOBES, ABD SOFT NON TENDER NON DISTENDED, BS X4, SKIN PINK WARM DRY AND INTACT, CAP REFILL <3, NON TENTING SKIN TURGOR, PT STATED " I HAVE 9 PAIN IN MY RIGHT LOWER LEG. 9 OUT OF 10" 0-10 PAIN SCALE USED, GAVE PRN DILAUDID 0.5MG/0.5ML, WILL CONTINUE TO MONITOR. ELICIA AGUIAR PSNRCC
[2018-08-05 08:00] VITALS: BP 130/64
--- NOTE | 2018-08-05 08:10 | NUR ---
FOLLOW UP ON PRN MARLENA, PT STATED " I HAVE NO PAIN NOW" MED IS EFFECTIVE. ELICIA AGUIAR SPNRCC
--- NOTE | 2018-08-05 10:09 | NUR ---
PT STATED " I HAD A BATH LATE LAST NIGHT, I DON'T WANT TO GET ANOTHER ONE UNTIL THIS AFTERNOON. I PREFER AFTERNOON BATHS" WILL CONTINUE TO MONITOR AND ASSSIST IF NEEDED. ELICIA AGUIAR SPNRCC
--- NOTE | 2018-08-05 11:39 | NUR ---
PT STATED " I HAVE PAIN 8 OUT OF 10 IN MY RIGHT LEG" GAVE PRN DILAUDID 0.5MG. ADMIN BY KARY MARTI RN. WILL CONTINUE TO MONITOR. ELICIA AGUIAR SPJAILENECC
--- NOTE | 2018-08-05 12:10 | NUR ---
FOLLOW UP ON EMMA MORILLO, PT STATED "MY PAIN IS NOT BAD NOW" MED EFFECTIVE, WILL CONTINUE TO MONIOR. ELICIA AGUIAR SPNRCC
[2018-08-05 16:00] VITALS: BP 119/59
[2018-08-06] VITALS: BP 128/79
--- NOTE | 2018-08-06 | NUR ---
SCHEDULED PERCOCET WAS INEFFECTIVE. PATIENT COMPLAINING OF RIGHT KNEE PAIN RATED 8/10 AND DESCRIBED A SHARP STABBING PAIN.
--- NOTE | 2018-08-06 00:11 | NUR ---
IV DILAUDID GIVEN PER PATIENT REQUEST FOR RIGHT LEG PAIN RATED A 8/10 AND DESCRIBED A SHARP STABBING PAIN. CALL LIGHT WITHIN REACH. WILL CONTINUE TO MONITOR AND REASSESS.
--- NOTE | 2018-08-06 01:00 | NUR ---
MEDICATION EFFECTIVE. PATIENT RESTING COMFORTABLY IN BED, RATES PAIN A 3/10 AND ONLY HAS OCCASIONAL SHARP PAINS. CALL LIGHT WITHIN REACH.
--- NOTE | 2018-08-06 05:55 | NUR ---
PATIENT GIVEN IV DILAUDID PER OT REQUEST FOR RIGHT LEG PAIN RATED 7/10 AND DESCRIBED A SHARP, STABBING PAIN. PATIENT HAS SCD'S APPLIED AT THIS TIME. CALL LIGHT WITHIN REACH. WILL CONTINUE TO MONITOR AND REASSESS.
[2018-08-06 06:29] LABS: BASO # 0.1 10*3/uL (0.0-0.1); BASO % 0.6 % (0.0-1.0); EOS # 0.2 10*3/uL (0.0-0.4); EOS % 2.2 % (1.0-4.0); HEMATOCRIT 26.2 % (37.0-47.0); HEMOGLOBIN 8.1 g/dl (12.0-16.0); LYMPH # 2.3 10*3/uL (1.3-4.4); LYMPH % 28.6 % (27.0-41.0); MEAN CELL VOLUME 106.9 fl (81.0-99.0); MEAN CORPUSCULAR HGB 33.1 pg (27.0-31.0); MEAN CORPUSCULAR HGB CONC 30.9 g/dl (33.0-37.0); MEAN PLATELET VOLUME 9.5 fl (9.6-12.3); MONO % 12.4 % (3.0-9.0); NEUT # 4.5 10*3/uL (2.3-7.9); NEUT % 55.8 % (47.0-73.0); PLATELET COUNT AUTOMATED 382 10*3/uL (130-400); RED BLOOD COUNT 2.45 10*6/uL (4.10-5.10); RED CELL DISTRI WIDTH 15.8 % (0-14.5); WHITE BLOOD COUNT 8.1 10*3/uL (4.8-10.8)
[2018-08-06] MEDS ORDERED: K-TAB20 MEQ PO (07:37)
[2018-08-06 08:00] VITALS: BP 136/86
--- NOTE | 2018-08-06 09:05 | NUR ---
This nurse went to obtain discharge photos. I was able to photograph right breast but patient refused photographs of right knee stated it is healed and I have pants on. This nurse honored her request.
--- NOTE | 2018-08-06 10:19 | NUR ---
PER RAMY, NURSING PULP MILL SUPERVISOR AND RAPHAEL MILLER. PTs DAUGHTER IS OK TO STAY THE NIGHT WITH THE PT.
--- NOTE | 2018-08-06 13:32 | NUR ---
Discharge instructions reviewed with patient/family. Patient receptive and verbalizes understanding. Follow-up care arranged. Written instructions given to patient/family. CARMINE BRANDON
== END 2018-08-06 13:32 | disposition home or self-care (01) | DRG 640 ==
LOC: ED 17:27 → 5E 19:47 → EDHOLD 19:47 → 5E 20:35
PROVIDERS: Family Medicine; Physician Assistant; Student in an Organized Health Care Education/Training Program; ADMIT Internal Medicine
DX: E87.6 Hypokalemia (principal); E43 Unspecified severe protein-calorie malnutrition; M00.061 Staphylococcal arthritis, right knee; I50.42 Chronic combined systolic (congestive) and diastolic (congestive) heart failure; R55 Syncope and collapse; D53.9 Nutritional anemia, unspecified; D47.3 Essential (hemorrhagic) thrombocythemia; D72.810 Lymphocytopenia; E83.51 Hypocalcemia; R74.8 Abnormal levels of other serum enzymes; J44.9 Chronic obstructive pulmonary disease, unspecified; F41.8 Other specified anxiety disorders; E66.9 Obesity, unspecified; E53.8 Deficiency of other specified B group vitamins; M54.2 Cervicalgia; G89.29 Other chronic pain; Z96.652 Presence of left artificial knee joint; Z96.641 Presence of right artificial hip joint; M54.5 Low back pain; F17.210 Nicotine dependence, cigarettes, uncomplicated; Z71.6 Tobacco abuse counseling; Z90.710 Acquired absence of both cervix and uterus; Z98.84 Bariatric surgery status; Z90.79 Acquired absence of other genital organ(s); Z90.722 Acquired absence of ovaries, bilateral; Z90.49 Acquired absence of other specified parts of digestive tract; Z83.3 Family history of diabetes mellitus; Z82.49 Family history of ischemic heart disease and other diseases of the circulatory system; Z82.0 Family history of epilepsy and other diseases of the nervous system; Z88.5 Allergy status to narcotic agent; Z79.899 Other long term (current) drug therapy; Z68.36 Body mass index [BMI] 36.0-36.9, adult

== ENCOUNTER 2018-10-16 15:32 | Emergency (ER) | payer OTHER, MEDICAID ==
[~2018-10-16] VITALS: Wt 108.9 kg
--- NOTE | ~2018-10-16 | EKG ---
[place], [place] ELECTROCARDIOGRAM REPORT NAME: HARVEY NGUYỄN UNIT #: [id number] ROOM: DOCTOR: EPIPHANY DRAFT REPORT BIRTHDATE: [birth year] [facility] Test Date: 2018-10-16 Test Time: 15:44:37 Pat Name: HARVEY NGUYỄN Department: Room: Gender: F Dispatcher Radio: : 1960 Requested By: MARTHA ALSTON Order Number: [id number] Reading MD: Messi Christine MD Measurements Intervals [place] Rate: 88 P: 18 W[place]: 179 QRS: -18 QRSD: 149 T: 132 QT: 419 QTc: 507 Interpretive Statements Sinus rhythm Left bundle branch block Compared to ECG 03/20/2018 15:49:39 Sinus tachycardia no longer present Electronically Signed On 10-18-2018 7:14:10 PDT by Messi Christine MD CM:EKGRPT:ELECTROCARDIOGRAM REPORT [id number] 0714 MARTHA ALSTON EPIPHANY DRAFT REPORT MARTHA ALSTON
[~2018-10-16 15:32] MED LIST changes: +AMERINET CHOICE1 GM IV; +B12,B-12,B 12500 MC1 PO; +K-TAB20 MEQ PO; +LATU120T PO; +POTASSIUM CITR15 ME1 PO
[2018-10-16 16:15] LABS: BASO % 0.4 % (0.0-1.0); EOS % 0.6 % (1.0-4.0); HEMATOCRIT 35.1 % (37.0-47.0); HEMOGLOBIN 11.3 g/dl (12.0-16.0); LYMPH # 1.3 10*3/uL (1.3-4.4); LYMPH % 26.2 % (27.0-41.0); MEAN CELL VOLUME 101.7 fl (81.0-99.0); MEAN CORPUSCULAR HGB 32.8 pg (27.0-31.0); MEAN CORPUSCULAR HGB CONC 32.2 g/dl (33.0-37.0); MEAN PLATELET VOLUME 9.2 fl (9.6-12.3); MONO # 0.5 10*3/uL (0.1-1.0); MONO % 10.5 % (3.0-9.0); NEUT # 3.1 10*3/uL (2.3-7.9); NEUT % 61.9 % (47.0-73.0); PLATELET COUNT AUTOMATED 286 10*3/uL (130-400); RED BLOOD COUNT 3.45 10*6/uL (4.10-5.10); RED CELL DISTRI WIDTH 17.8 % (0-14.5)
[2018-10-16 16:30] LABS: ACT PARTIAL THROMBO TIME 26.7 SECONDS (20.8-31.5)
[2018-10-16 16:36] LABS: ALBUMIN 2.8 gm/dl (3.1-4.5); ALKALINE PHOSPHATASE 212 U/L (45-117); BUN 10 mg/dl (7-24); CHLORIDE 111 mmol/L (98-107); CREATININE 0.57 mg/dL (0.55-1.02); LIPASE 106 U/L (73-393); POTASSIUM 3.4 mmol/L (3.5-5.1); SGOT/AST 11 IU/L (3-35); SGPT/ALT 14 U/L (12-78); SODIUM 140 mmol/L (136-145); TOTAL PROTEIN 7.1 gm/dL (6.4-8.2)
[2018-10-16 16:40] LABS: TROPONIN I < 0.015 ng/ml (<0.045)
[2018-10-16] MEDS ORDERED: DOXYCYCLINE100 M3 PO (17:29)
[2018-10-16] MEDS ORDERED: PREDNISONE10 MG PO (17:29)
[2019-02-21] MEDS ORDERED: GABAPENTIN800 MG PO (01:54)
[2019-02-25] MEDS ORDERED: B12,B-12,B 12500 MC1 PO (14:19)
[2019-02-25] MEDS ORDERED: OMNICEF300 MG PO (15:06)
== END 2018-10-16 17:50 | disposition home or self-care (01) ==
LOC: ED 15:32
PROVIDERS: Nurse Practitioner Family
DX: J40 Bronchitis, not specified as acute or chronic (principal); J44.9 Chronic obstructive pulmonary disease, unspecified; E66.9 Obesity, unspecified; F17.210 Nicotine dependence, cigarettes, uncomplicated; Z88.6 Allergy status to analgesic agent; Z79.899 Other long term (current) drug therapy

== ENCOUNTER → 2018-10-25 | Outpatient (CLI) | payer OTHER, MEDICAID ==
[~2018-10-25] MED LIST changes: +Duragesic 25 M25 MCG T; +GABAPENTIN800 MG PO; +IMODIUM A-D2 M2 PO; +OMNICEF300 MG PO; +XARE20MG PO; +XARELTO1 EACH PO
[2018-10-25 12:00] LABS: BILIRUBIN NEGATIVE (NEGATIVE); BLOOD NEGATIVE (NEGATIVE); CLARITY CLEAR (CLEAR); COLOR YELLOW (YELLOW); GLUCOSE NEGATIVE (NEGATIVE); KETONE NEGATIVE (NEGATIVE); LEUKO ESTERASE NEGATIVE (NEGATIVE); NITRITE NEGATIVE (NEGATIVE); SPECIFIC GRAVITY <= 1.005 (1.005-1.030); UROBILINOGEN 0.2 E.U./dl (0.2-1.0)
[2018-10-25 13:43] LABS: BACTERIA TRACE; EPITHELIAL CELLS 0-2; RBC 0-2 rbc/hpf (0-2); WBC 0-2 wbc/hpf (0-5)
== END | disposition home or self-care (01) ==
LOC: LAB 10:31
PROVIDERS: Internal Medicine
DX: R30.0 Dysuria (principal)

== ENCOUNTER → 2018-10-27 | Outpatient (CLI) | payer OTHER, MEDICAID ==
[2018-10-27 11:11] LABS: BASO % 0.4 % (0.0-1.0); EOS % 0.6 % (1.0-4.0); HEMATOCRIT 34.6 % (37.0-47.0); HEMOGLOBIN 10.7 g/dl (12.0-16.0); LYMPH # 1.7 10*3/uL (1.3-4.4); LYMPH % 30.9 % (27.0-41.0); MEAN CELL VOLUME 101.8 fl (81.0-99.0); MEAN CORPUSCULAR HGB 31.5 pg (27.0-31.0); MEAN CORPUSCULAR HGB CONC 30.9 g/dl (33.0-37.0); MEAN PLATELET VOLUME 9.3 fl (9.6-12.3); MONO # 0.8 10*3/uL (0.1-1.0); MONO % 14.8 % (3.0-9.0); NEUT # 2.9 10*3/uL (2.3-7.9); NEUT % 52.7 % (47.0-73.0); PLATELET COUNT AUTOMATED 341 10*3/uL (130-400); RED CELL DISTRI WIDTH 17.3 % (0-14.5); WHITE BLOOD COUNT 5.4 10*3/uL (4.8-10.8)
[2018-10-27 11:27] LABS: BUN 18 mg/dl (7-24); CHLORIDE 112 mmol/L (98-107); CREATININE 0.98 mg/dL (0.55-1.02); POTASSIUM 3.4 mmol/L (3.5-5.1); SODIUM 138 mmol/L (136-145)
== END | disposition home or self-care (01) ==
LOC: LAB 10:43
PROVIDERS: Internal Medicine Infectious Disease
DX: M00.861 Arthritis due to other bacteria, right knee (principal)

== ENCOUNTER → 2018-11-30 | Outpatient (CLI) | payer OTHER, MEDICAID ==
[2018-11-30 10:52] LABS: URINE BARBITURATES < 200 (200ng/ml); URINE BENZODIAZEPINES < 200 (200ng/ml); URINE CANNABINOIDS (THC) < 50 (50ng/ml); URINE COCAINE < 300 (300ng/ml); URINE METHADONE < 300 (300ng/ml); URINE OPIATES > 300 (300ng/ml)
[2018-11-30 10:58] LABS: URINE AMPHETAMINES < 1000 (1000ng/ml); URINE PHENCYCLIDINE < 25 (25ng/ml)
== END | disposition home or self-care (01) ==
LOC: LAB 10:10
PROVIDERS: Internal Medicine
DX: Z79.899 Other long term (current) drug therapy (principal)

== ENCOUNTER 2019-01-10 15:23 | Emergency (ER) | payer OTHER, MEDICAID ==
[~2019-01-10] VITALS: Ht 177.8 cm; Wt 117.9 kg
[~2019-01-10 15:23] MED LIST changes: -Duragesic 25 M25 MCG T; -GABAPENTIN800 MG PO; -IMODIUM A-D2 M2 PO; -OMNICEF300 MG PO; -XARE20MG PO; -XARELTO1 EACH PO
[2019-01-10 17:46] LABS: ALBUMIN 3.2 gm/dl (3.1-4.5); CREATININE 1.18 mg/dL (0.55-1.02); TOTAL PROTEIN 6.3 gm/dL (6.4-8.2)
[2019-01-10 19:35] LABS: BASO % 0.5 % (0.0-1.0); EOS # 0.1 10*3/uL (0.0-0.4); EOS % 0.8 % (1.0-4.0); HEMATOCRIT 37.6 % (37.0-47.0); HEMOGLOBIN 12.4 g/dl (12.0-16.0); LYMPH # 1.9 10*3/uL (1.3-4.4); LYMPH % 31.4 % (27.0-41.0); MEAN CELL VOLUME 103.6 fl (81.0-99.0); MEAN CORPUSCULAR HGB 34.2 pg (27.0-31.0); MEAN PLATELET VOLUME 10.4 fl (9.6-12.3); MONO # 0.5 10*3/uL (0.1-1.0); MONO % 8.8 % (3.0-9.0); NEUT # 3.4 10*3/uL (2.3-7.9); NEUT % 58.2 % (47.0-73.0); PLATELET COUNT AUTOMATED 259 10*3/uL (130-400); RED BLOOD COUNT 3.63 10*6/uL (4.10-5.10); RED CELL DISTRI WIDTH 17.2 % (0-14.5); WHITE BLOOD COUNT 5.9 10*3/uL (4.8-10.8)
[2019-02-21] MEDS ORDERED: GABAPENTIN800 MG PO (01:54)
[2019-02-25] MEDS ORDERED: B12,B-12,B 12500 MC1 PO (14:19)
[2019-02-25] MEDS ORDERED: OMNICEF300 MG PO (15:06)
== END 2019-01-10 19:48 | disposition home or self-care (01) ==
LOC: ED 15:23
PROVIDERS: Physician Assistant
DX: R10.12 Left upper quadrant pain (principal); R11.2 Nausea with vomiting, unspecified; R19.7 Diarrhea, unspecified; G89.29 Other chronic pain; Z88.6 Allergy status to analgesic agent; Z79.899 Other long term (current) drug therapy; Z72.0 Tobacco use

== ENCOUNTER 2019-01-26 09:48 | Inpatient (IN) | payer OTHER, MEDICAID ==
[~2019-01-26] VITALS: Ht 177.8 cm; Wt 140.4 kg
--- NOTE | ~2019-01-26 | EKG ---
[place], [place] ELECTROCARDIOGRAM REPORT NAME: HARVEY NGUYỄN UNIT #: [id number] ROOM: 407 DOCTOR: KARLENE DRAFT REPORT BIRTHDATE: [birth year] [facility] Test Date: 2019-01-26 Test Time: 17:56:38 Pat Name: HARVEY NGUYỄN Department: Room: 407 2 Gender: F Certified Green Building Engineer: : 1960 Requested By: LEANDRO CONTRERAS Order Number: [id number] Reading MD: Félix Elise MD Measurements Intervals [place] Rate: 72 P: -23 PA: 194 QRS: -28 QRSD: 156 T: 123 QT: 420 QTc: 460 Interpretive Statements Sinus rhythm Left bundle branch block Compared to ECG 01/04/2019 12:37:41 No significant changes Electronically Signed On 01-28-2019 4:13:47 PDT by Félix Elise MD CM:EKGRPT:ELECTROCARDIOGRAM REPORT [id number] LEANDRO CONTRERAS EPIPHKELLEY DRAFT REPORT LEANDRO CONTRERAS
--- NOTE | ~2019-01-26 | PR ---
[place], [place] PROGRESS NOTE NAME: HARVEY NGUYỄN [facility] #: [id number] UNIT #: [id number] ROOM: 407 DOCTOR: MAR SHELBY MD BIRTHDATE: [birth year] DOS: 01/28/2019 ADDENDUM This is an addendum to the progress note done by Dr. Jair Maldonado on 01/28/2019. I agree with the assessment and plan made by the resident. I reviewed the labs and imaging, made the necessary changes in the note. Mar Shelby MD CM:PNTRANS [id number] MAR SHELBY MD 02/09/19 0822 interface
[2019-01-26 09:50] VITALS: BP 100/58
[2019-01-26 11:09] LABS: BASO % 0.3 % (0.0-1.0); EOS # 0.1 10*3/uL (0.0-0.4); EOS % 1.4 % (1.0-4.0); HEMATOCRIT 30.4 % (37.0-47.0); LYMPH # 0.7 10*3/uL (1.3-4.4); LYMPH % 17.9 % (27.0-41.0); MEAN CELL VOLUME 105.9 fl (81.0-99.0); MEAN CORPUSCULAR HGB 34.8 pg (27.0-31.0); MEAN CORPUSCULAR HGB CONC 32.9 g/dl (33.0-37.0); MEAN PLATELET VOLUME 9.7 fl (9.6-12.3); MONO # 0.7 10*3/uL (0.1-1.0); MONO % 17.9 % (3.0-9.0); NEUT # 2.3 10*3/uL (2.3-7.9); NEUT % 62.2 % (47.0-73.0); PLATELET COUNT AUTOMATED 241 10*3/uL (130-400); RED BLOOD COUNT 2.87 10*6/uL (4.10-5.10); WHITE BLOOD COUNT 3.7 10*3/uL (4.8-10.8)
[2019-01-26 11:26] LABS: ALBUMIN 2.4 gm/dl (3.1-4.5); ALKALINE PHOSPHATASE 182 U/L (45-117); BUN 25 mg/dl (7-24); CHLORIDE 114 mmol/L (98-107); CREATININE 1.05 mg/dL (0.55-1.02); LIPASE 149 U/L (73-393); POTASSIUM 2.5 mmol/L (3.5-5.1); SGPT/ALT 9 U/L (12-78); SODIUM 141 mmol/L (136-145); TOTAL PROTEIN 6.3 gm/dL (6.4-8.2)
[2019-01-26 11:36] LABS: SGOT/AST 4 IU/L (3-35)
[2019-01-26 11:56] VITALS: BP 99/46
--- NOTE | 2019-01-26 11:58 | NUR ---
PT W/O PAIN RELIEF FROM MEDS.
--- NOTE | 2019-01-26 12:29 | NUR ---
PT REQUESTING ADDITIONAL PAIN MEDICATIONS D/T "WHEN I EVEN MOVE MY KNEE IT KILLS ME AND THE MEDICINE DIDN'T HELP",MARIJA ARELLANO PA-C NOTIFIED.
[2019-01-26 13:38] VITALS: BP 100/60
--- NOTE | 2019-01-26 15:07 | NUR ---
PT PROVIDED LUNCH TRAY AND POSITIONED FOR COMFORT WHILE AWAITING ALL RESULTS AND POSSIBLE TRANSFER FOR CONTINUANCE OF CARE.
--- NOTE | 2019-01-26 16:32 | NUR ---
DR MORRISON IN ED TO SEE PT @ THIS TIME.
[2019-01-26 17:45] VITALS: BP 138/56
--- NOTE | 2019-01-26 17:45 | NUR ---
Time: 1744 A 58 year old FEMALE admitted to under services of ELIZA OLIVEIRA DO. Pt. arrived via stretcher from ER. Chief complaint: SEPTIC RIGHT KNEE JOINT, OSTEOMYELITIS. KUSHAL ALBERTO
--- NOTE | 2019-01-26 17:46 | NUR ---
RIGHT KNEE WRAPPED PER DR MORRISON AFTER ASPIRATION. NOAH NOT REMOVED.
--- NOTE | 2019-01-26 18:06 | NUR ---
DR SHELBY ANSWERING SERVICE NOTIFIED OF CONSULT.
--- NOTE | 2019-01-26 18:17 | NUR ---
DR LANG CALLS UNIT. NOTIFIED OF CONSULT. SHE STATES NO PICC LINE UNTIL THE BLOOD CULTURES COME BACK.
--- NOTE | 2019-01-26 18:57 | NUR ---
PT MEDICATED WITH DILAUDID FOR C/O RIGHT KNEE PAIN. CALL LIGHT IN REACH. WILL MONITOR
[2019-01-26 19:32] LABS: BODY FLUID WBC 38450 /uL
[2019-01-26 20:00] VITALS: BP 107/64
[2019-01-26 20:05] LABS: BF LYMPHOCYTES 7 %; BF MONOCYTES 8 %; BF NEUTROPHILS 85 %
--- NOTE | 2019-01-26 21:46 | NUR ---
PATIENT C/O RIGHT KNEE PAIN. RATES 02/26. MEDICATED WITH DILAUDID AT THIS TIME. WILL CHECK EFFECTIVENESS.
[2019-01-27] VITALS (9 sets, daily range): BP systolic 96–108; BP diastolic 49–74
--- NOTE | 2019-01-27 00:55 | NUR ---
PATIENT REQUESTING PAIN MEDICATION AT THIS TIME FOR RIGHT KNEE PAIN. RATES 01/26.MEDICATED WITH DILAUDID, WILL CHECK EFFECTIVENESS.
--- NOTE | 2019-01-27 04:04 | NUR ---
PATIENT C/O RIGHT KNEE PAIN. MEDICATED WITH DILAUDID. RATES PAIN 9/10 AT THIS TIME.
--- NOTE | 2019-01-27 06:26 | NUR ---
HARVEY NGUYỄN [id number] Please refer to the physician's history and physical for past medical history, comorbid conditions, and allergies. Diagnosis: SEPTIC JOINT OF RIGHT KNEE JOINT OSTEOMYELITIS Mike Score: 22,LOW OR NO RISK WOUND DESCRIPTIONS: Wound Number: 1 Олег wrap intact to right knee patient stated this was put on in ER by Dr. Roberts and she was having surgery with her today. She stated she keyana fluid out of my knee. No strikethrough drainage noted at time of assessment. Surface the patient is resting on: Position Pro SKIN PREVENTION RECOMMENDATION: 1. Pressure redistribution support surface as appropriate 2. Elevate heels 3. Remove boots/TEDS every shift and reapply 4. Head of bed 30 degrees as tolerated 5. Assess nutrition and hydration 6. Manage moisture 7. Avoid the use of containment devices while in bed 8. Use absorptive products on surfaces limit layers of linens on bed 9. Turn and reposition every 1-2 hours in bed and every 1 hour in chair as tolerated 10. Weight shifts every 15 minutes while up in chair 11. Offloading with pillows or device to keep heels elevated off bed 12. Monitor skin at least every shift 13. Inspect under medical devices twice a day WOUND TREATMENT RECOMMENDATIONS: Await post op order per Dr. Roberts since patient is going to surgery this am.
[2019-01-27 07:25] LABS: BASO % 0.6 % (0.0-1.0); EOS # 0.1 10*3/uL (0.0-0.4); HEMATOCRIT 28.7 % (37.0-47.0); HEMOGLOBIN 9.3 g/dl (12.0-16.0); LYMPH # 1.3 10*3/uL (1.3-4.4); LYMPH % 36.3 % (27.0-41.0); MEAN CELL VOLUME 107.1 fl (81.0-99.0); MEAN CORPUSCULAR HGB 34.7 pg (27.0-31.0); MEAN CORPUSCULAR HGB CONC 32.4 g/dl (33.0-37.0); MEAN PLATELET VOLUME 9.5 fl (9.6-12.3); MONO # 0.6 10*3/uL (0.1-1.0); MONO % 16.4 % (3.0-9.0); NEUT # 1.6 10*3/uL (2.3-7.9); NEUT % 44.4 % (47.0-73.0); PLATELET COUNT AUTOMATED 263 10*3/uL (130-400); RED BLOOD COUNT 2.68 10*6/uL (4.10-5.10); RED CELL DISTRI WIDTH 16.9 % (0-14.5); WHITE BLOOD COUNT 3.5 10*3/uL (4.8-10.8)
--- NOTE | 2019-01-27 07:35 | NUR ---
PT OFF FLOOR IN SURGERY WITH DR. MORRISON
[2019-01-27 07:53] LABS: ALBUMIN 2.2 gm/dl (3.1-4.5); ALKALINE PHOSPHATASE 170 U/L (45-117); BUN 18 mg/dl (7-24); CHLORIDE 118 mmol/L (98-107); CHOLESTEROL 79 mg/dL (<200); CREATININE 0.81 mg/dL (0.55-1.02); FREE T4 1.03 ng/dl (0.76-1.46); HDL CHOLESTEROL 37 mg/dl (40-60); LDL CHOLESTEROL 26 mg/dL (9-159); PHOSPHOROUS 2.9 mg/dL (2.5-4.9); POTASSIUM 2.9 mmol/L (3.5-5.1); SGOT/AST 6 IU/L (3-35); SGPT/ALT 8 U/L (12-78); SODIUM 144 mmol/L (136-145); TOTAL PROTEIN 5.9 gm/dL (6.4-8.2); TRIGLYCERIDES 79 mg/dl (<150); VLDL CHOLESTEROL 16 mg/dL (6-40)
[2019-01-27 08:01] LABS: ACT PARTIAL THROMBO TIME 37.6 SECONDS (20.0-32.1)
--- NOTE | 2019-01-27 08:04 | NUR ---
DR. CONTRERAS NOTIFIED OF POSITIVE BLOOD CULTURE AND LOW K LEVEL. NO NEW TELEPHONE ORDERS RECEIVED AT THIS TIME
[2019-01-27 08:10] LABS: BILIRUBIN NEGATIVE (NEGATIVE); BLOOD NEGATIVE (NEGATIVE); CLARITY SL CLOUDY (CLEAR); COLOR YELLOW (YELLOW); GLUCOSE NEGATIVE (NEGATIVE); KETONE NEGATIVE (NEGATIVE); LEUKO ESTERASE NEGATIVE (NEGATIVE); NITRITE NEGATIVE (NEGATIVE); PH 6.5 (5.0-9.0); UROBILINOGEN 0.2 E.U./dl (0.2-1.0)
[2019-01-27 08:17] LABS: BACTERIA TRACE; EPITHELIAL CELLS 21-30
--- NOTE | 2019-01-27 09:00 | NUR ---
Operations And Maintenance Technician in to talk to patient. Patient states lives at home with alone. There are few steps in the home. Physician: winifred Pharmacy: [facility] Home health services: [facility] Patient's level of ADLs: MINIMAL ASSIST Patient has working utilities: all working DME: crutches Follow-up physician's appointment after d/c: will be made by hospitalist nurse director upon discharge Does patient want to access PORTAL?: no Discharge plan discussed with patient, patient lives at home alone, she is independent in alds and ambulation with crutches. patient states she has had [facility] in the past and would like them again, patient states she will be going home when medically stable. NAUN ODEN
--- NOTE | 2019-01-27 09:10 | NUR ---
Mariya BROWN aware of post op wound care orders needed after surgery.
--- NOTE | 2019-01-27 10:05 | NUR ---
RETURN FROM SURGERY
--- NOTE | 2019-01-27 10:25 | NUR ---
Dr. Malone notified of wound care recommendations.
--- NOTE | 2019-01-27 11:45 | NUR ---
ONE TIME DILAUDID GIVEN FOR 10/10 PAIN
--- NOTE | 2019-01-27 12:26 | NUR ---
PT STATES DILAUDID ONLY "TOOK EDGE OFF"
--- NOTE | 2019-01-27 12:45 | NUR ---
PT STATES PAIN 03/29, DILAUDID GIVEN.
--- NOTE | 2019-01-27 13:51 | NUR ---
DR. CONTRERAS AWARE THAT HOME MEDICATIONS ARE UPDATED BY PATIENT RECALL, NEED RESTARTED.
[2019-01-27 14:06] LABS: ACID FAST SPEC PROCESSING Direct Inoculation (.)
--- NOTE | 2019-01-27 14:50 | NUR ---
DR. CONTRERAS NOTIFIED THAT PATIENT STATES PAIN IS "OUT OF CONTROL" AFTER GETTING UP TO BS. NO PAIN MEDICTAION IS DUE AT THIS TIME.
--- NOTE | 2019-01-27 15:23 | NUR ---
DR. CONTRERAS NOTIFIED OF SYNOVIAL FLUID GRAM + COCCI, WILL NOTIFY DR. MORRISON AND HERON WELL
--- NOTE | 2019-01-27 15:37 | NUR ---
DR MORRISON AWARE OF SYNOVIAL FLUID CULTURE RESULTS,ADDRESSED DRESSING CHANGES TO SURGICAL SITE. DR. MORRISON WANTS SURGICAL LEFT ON AND NOT CHANGED AT THIS TIME
--- NOTE | 2019-01-27 15:47 | NUR ---
PT STATES PAIN RIGHT KNEE 9/10, DILAUDID GIVEN.
--- NOTE | 2019-01-27 17:38 | NUR ---
IV RIGHT WRIST LEAKING/CATH HALF OUT AND BENT, NEW IV STARTED LEFT WRIST #22, PT TOLERATED WELL
--- NOTE | 2019-01-27 18:45 | NUR ---
PT COMPLAIN OF PAIN IN LEFT LEG 9/10, DILAUDID GIVEN.
[2019-01-27] MEDS ORDERED: IMODIUM A-D2 M2 PO (18:47)
[2019-01-28] VITALS: BP 107/68
--- NOTE | 2019-01-28 00:54 | NUR ---
PATIENT RECEIVED DILAUDID FOR C/O PAIN IN RIGHT LEG RATED 10/10, PATIENT IS CRYING AND FUSSY.
[2019-01-28 06:40] LABS: HEMATOCRIT 24.8 % (37.0-47.0); LYMPH # 0.7 10*3/uL (1.3-4.4); MEAN CELL VOLUME 106.4 fl (81.0-99.0); MEAN CORPUSCULAR HGB 34.3 pg (27.0-31.0); MEAN CORPUSCULAR HGB CONC 32.3 g/dl (33.0-37.0); MEAN PLATELET VOLUME 9.6 fl (9.6-12.3); MONO # 0.7 10*3/uL (0.1-1.0); NEUT # 2.4 10*3/uL (2.3-7.9); NEUT % 62.2 % (47.0-73.0); PLATELET COUNT AUTOMATED 256 10*3/uL (130-400); RED BLOOD COUNT 2.33 10*6/uL (4.10-5.10); RED CELL DISTRI WIDTH 16.7 % (0-14.5); WHITE BLOOD COUNT 3.9 10*3/uL (4.8-10.8)
[2019-01-28 06:53] LABS: ALKALINE PHOSPHATASE 144 U/L (45-117); BUN 20 mg/dl (7-24); CHLORIDE 119 mmol/L (98-107); POTASSIUM 3.5 mmol/L (3.5-5.1); SGOT/AST 4 IU/L (3-35); SGPT/ALT 7 U/L (12-78); SODIUM 143 mmol/L (136-145); TOTAL PROTEIN 5.3 gm/dL (6.4-8.2)
--- NOTE | 2019-01-28 07:49 | NUR ---
PT STATES PAIN RIGHT KNEE 12/10, DILAUDID GIVEN. ECHO BEING DONE AT BEDSIDE.
[2019-01-28 08:00] VITALS: BP 158/90
--- NOTE | 2019-01-28 08:00 | NUR ---
PHYSICAL THERAPY Nursing screen received. PT orders also received. Thank you. Breanna Milan,PT
--- NOTE | 2019-01-28 08:47 | NUR ---
DR. CONTRERAS AWARE OF ELEVATED BLOOD PRESSURE, COREG RESTARTED. AWARE OF CRITICAL RESULTS BODY FLUID MRSA +, PT IS ON VANCO AND ID IS FOLLOWINIG. DR. CONTRERAS WILL ADDRESS PATIENTS OTHER HOME MEDIACTIONS
--- NOTE | 2019-01-28 08:54 | NUR ---
PHYSICAL THERAPY PT orders received. Extensive right knee procedures. Called Dr. Edward office and spoke to Ashly and requested WB status permitted. Thank you for this referral. Breanna Milan,PT
--- NOTE | 2019-01-28 09:00 | NUR ---
case management visits with patient, discussed with her if she would need iv antibiotics upon discharge if she was able to administer them herself or if she would consider going to a short term [facility], patient states she has administered iv antibioitics to herself in the past and would be able to do this again, she stated she would like [facility] see her at home, case management will follow and set up any necessary home services
--- NOTE | 2019-01-28 09:03 | NUR ---
PHYSICAL THERAPY Emma from Dr. Edward office returned call: WBAT permitted. Breanna Milan,PT
--- NOTE | 2019-01-28 09:30 | NUR ---
PHYSICAL THERAPY PAtient eating breakfast. Breanna Milan,PT
--- NOTE | 2019-01-28 10:35 | NUR ---
pt complain of pain right knee, 04/28. percocet given.
--- NOTE | 2019-01-28 10:37 | NUR ---
Patient unavailable for occupational therapy eval at this time because she was eating breakfast. Will attempt occupational therapy eval at a later date. Sofia May OTR/l
--- NOTE | 2019-01-28 11:00 | NUR ---
PHYSICAL THERAPY PAtient requests PT come back later this date. Thank you for this referral. Breanna Milan,PT
--- NOTE | 2019-01-28 11:22 | NUR ---
Occupational therapy eval offered but patient declined and stated, "Not now, come back later." Will attempt occupational therapy eval at a later date. Sofia May OTR/L
--- NOTE | 2019-01-28 11:25 | NUR ---
pt states pain right knee 02/26, dilaudid given
[2019-01-28 12:00] VITALS: BP 100/46
--- NOTE | 2019-01-28 12:02 | NUR ---
pt sleeping at this time.
--- NOTE | 2019-01-28 14:09 | NUR ---
Occupational therapy eval offered but patient declined due to severe pain in right knee. Will attempt occupational therapy eval at a later date. Sofia May OTR/L
--- NOTE | 2019-01-28 14:21 | NUR ---
PHYSICAL THERAPY PAtient continues to request no PT this date. PAtient in significant pain and unable to attempt this date. Thank you for this referral. Breanna Milan,PT
--- NOTE | 2019-01-28 15:23 | NUR ---
discuss picc line placement with dr. martinez, is okay with picc insertion today, aware surgery is unable to do it today and notified dr. alvarenga that picc line needs placed.
--- NOTE | 2019-01-28 15:47 | NUR ---
PT REPORTS PAIN RIGHT KNEE 10/10, DILAUDID GIVEN
[2019-01-28 16:00] VITALS: BP 100/50
--- NOTE | 2019-01-28 16:04 | NUR ---
RECIEVED A CALL FROM ELEONORA AT [facility], SHE STATES THEY DO SERVICE [place]. STATES DR LANG CALLED HER AND ASKED HER TO SET UP ANTIBIOICS FOR PT. SPOKE WITH HOSPITALIST NURSE DIRECTOR AND SHE TALKED WITH DR STOVER WHO SAID PT DOES NOT HAVE A PICC LINE AND HE DOES NOT WANT TO PUT ONE IN WHILE SHE IS BACTAREMIC AND THERE ARE NO PLANS TO DISCHARGE PT. CALLED ELEONORA BACK AND INFORMED HER THAT PT WAS NOT GOING TO BE DISCHARGED. WILL INFORM NAUN BULWARK CARPENTER FOR PT ON THURSDAY THAT [facility] DOES SERVICE [place].
--- NOTE | 2019-01-28 16:58 | NUR ---
SPOKE TO SURGERY, THEY STATED THAT THE HENRY IS NOT ABLE TO BE DONE TONIGHT, I NOTIFIED DR. SHELBY AND DR. SHELBY IS OKAY WITH HENRY BEING DONE ON THURSDAY
[2019-01-28 20:00] VITALS: BP 104/67
[2019-01-29] VITALS (8 sets, daily range): BP systolic 83–113; BP diastolic 42–79
--- NOTE | 2019-01-29 00:26 | NUR ---
NOTIFIED DR. VIVAS OF PATIENTS BLOOD PRESSURE 82/50 MANUALLY. PATIENT ASYMPTOMATIC. PATIENT REQUESTING PAIN MEDICATION. THIS NURSE EXPLAINED TO PATIENT PERCOCET AND DILUADID WILL LOWER HER BLOOD PRESSURE AND CAN NOT BE GIVEN AT THIS TIME PER . OFFERED PATIENT TYLENOL. PATIENT REFUSED. WILL CONTINUE TO MONITOR.
--- NOTE | 2019-01-29 02:39 | NUR ---
PATIENT LAYING IN BED CRYING, C/O RIGHT KNEE PAIN. RATES 12/10. BLOOD PRESSURE 90/60. NOTIFIED DR. VIVAS. OLGA LIDIA TO GIVE PERCOCET. WILL CONTINUE TO MONITOR.
--- NOTE | 2019-01-29 02:44 | NUR ---
PATIENT MEDICATED AT THIS TIME WITH PERCOCET FOR RIGHT KNEE PAIN. WILL CHECK EFFECTIVENESS.
[2019-01-29 06:41] LABS: HEMATOCRIT 25.5 % (37.0-47.0); HEMOGLOBIN 8.2 g/dl (12.0-16.0); MEAN CELL VOLUME 108.1 fl (81.0-99.0); MEAN CORPUSCULAR HGB 34.7 pg (27.0-31.0); MEAN CORPUSCULAR HGB CONC 32.2 g/dl (33.0-37.0); MEAN PLATELET VOLUME 9.4 fl (9.6-12.3); PLATELET COUNT AUTOMATED 294 10*3/uL (130-400); RED BLOOD COUNT 2.36 10*6/uL (4.10-5.10); RED CELL DISTRI WIDTH 17.4 % (0-14.5); WHITE BLOOD COUNT 4.9 10*3/uL (4.8-10.8)
[2019-01-29 06:48] LABS: BUN 15 mg/dl (7-24); CHLORIDE 117 mmol/L (98-107); CREATININE 0.59 mg/dL (0.55-1.02); POTASSIUM 3.1 mmol/L (3.5-5.1); SODIUM 145 mmol/L (136-145)
--- NOTE | 2019-01-29 06:54 | NUR ---
PATIENT WANTING TO SPEAK WITH DOCTOR REGARDING PAIN MEDICATION. NOTIFIED DR. VIVAS.
[2019-01-29 07:18] LABS: TOTAL CELLS COUNTED 100 #CELLS
[2019-01-29 07:19] LABS: PLATELET SUFFICIENCY NORMAL (NORMAL); POLYCHROMASIA SLIGHT
--- NOTE | 2019-01-29 08:43 | NUR ---
PT COMPLAINING OF 10/10 PAIN TO RIGHT KNEE AT THIS TIME. MEDICATED WITH PERCOCET PER PRN ORDER. WILL MONITOR.
--- NOTE | 2019-01-29 10:00 | NUR ---
PATIENT STATES MED WAS SOMEWHAT EFFECTIVE BUT STILL C/O 8/10 PAIN. INFORMED PATIENT THAT FENTANYL PATCH HAS BEEN STARTED AND WILL BE APPLIED AND HOPEFULLY IMPROVE PAIN.
--- NOTE | 2019-01-29 10:00 | NUR ---
NEW STAGE 2 WOUND FOUND TO COCCYX AT THIS TIME. PHOTO TAKEN AND DOCTOR NOTIFIED FOR WOUND CARE ORDERS. OPTIFOAM APPLIED.
--- NOTE | 2019-01-29 12:00 | NUR ---
PHYSICAL THERAPY PT EVAL COMPLETED ON LEVEL 4: FULL EVALUATION TO FOLLOW. RECOMMEND PT WHILE HERE TO ADDRESS R KNEE PAIN AND LIMITED ROM / STRENGTH WELL DECREASED BALANCE, ENDURANCE AND THUS FUNCTIONAL MOBILITY. PT EVAL IS MODERATE COMPLEXITY BASED ON CHART REVIEW, TEST RESULTS AND EVALUATION: 23744. D/C RECOMMENDATIONS AT THIS TIME ARE HOME WITH HH VS OUTPATIENT PT BUT DEPENDENT ON PROGRESS WHILE HERE AND THE FACT THAT SHE DOES LIVE ALONE SHE MAY BENEFIT FROM SHORT TERM SNF STAY TO REGAIN PLOF. THANK YOU FOR REFERRAL ONEYDA TEIXEIRA PT
--- NOTE | 2019-01-29 20:49 | NUR ---
PRN PERCOCET GIVEN FOR PT COMPLAINTS OF PAIN IN THE KNEE RATING IT 8/10. CALL LIGHT WITHIN REACH, WILL MONITOR
--- NOTE | 2019-01-29 23:00 | NUR ---
PRN MEDICATION APPEARS EFFECTIVE, PT SLEEPING
[2019-01-30] VITALS: BP 114/69
--- NOTE | 2019-01-30 00:39 | NUR ---
24 HR chart check completed.
--- NOTE | 2019-01-30 02:56 | NUR ---
PT R/O RIGHT LEG PAIN. PERCOCET GIVEN AT THIS TIME. WILL MONITOR FOR EFFECTIVENESS. PT LYING IN BED, ICE ON RIGHT LEG. ALL SAFETY MEASURES IN PLACE. CALL LIGHT IN REACH.
[2019-01-30 07:09] LABS: HEMATOCRIT 24.9 % (37.0-47.0); HEMOGLOBIN 7.9 g/dl (12.0-16.0); MEAN CELL VOLUME 108.7 fl (81.0-99.0); MEAN CORPUSCULAR HGB 34.5 pg (27.0-31.0); MEAN CORPUSCULAR HGB CONC 31.7 g/dl (33.0-37.0); MEAN PLATELET VOLUME 9.4 fl (9.6-12.3); PLATELET COUNT AUTOMATED 282 10*3/uL (130-400); RED BLOOD COUNT 2.29 10*6/uL (4.10-5.10); RED CELL DISTRI WIDTH 17.2 % (0-14.5); WHITE BLOOD COUNT 3.9 10*3/uL (4.8-10.8)
[2019-01-30 07:40] LABS: BUN 14 mg/dl (7-24); CHLORIDE 117 mmol/L (98-107); CREATININE 0.55 mg/dL (0.55-1.02); POTASSIUM 3.3 mmol/L (3.5-5.1); SODIUM 144 mmol/L (136-145)
[2019-01-30 07:41] LABS: PLATELET SUFFICIENCY NORMAL (NORMAL); TOTAL CELLS COUNTED 100 #CELLS
[2019-01-30 07:42] LABS: POLYCHROMASIA SLIGHT
[2019-01-30 08:00] VITALS: BP 110/68
--- NOTE | 2019-01-30 08:38 | NUR ---
PT MEDICATED WITH PO PERCOCET AT THIS TIME PER PRN ORDER FOR COMPLAINTS OF SEVERE PAIN IN RIGHT KNEE. WILL MONITOR FOR EFFECTIVENESS.
--- NOTE | 2019-01-30 09:54 | NUR ---
PATIENT STATES THAT PAIN MEDICATION HAS BEEN EFFECTIVE. DENIES FURTHER COMPLAINTS AT THIS TIME.
[2019-01-30 12:00] VITALS: BP 90/50
--- NOTE | 2019-01-30 12:16 | NUR ---
PT MEDICATED WITH PO PERCOCET AT THIS TIME PER ORDER FOR COMPLAINTS OF RIGHT KNEE PAIN. WILL MONITOR FOR EFFECTIVENESS.
--- NOTE | 2019-01-30 14:00 | NUR ---
PER PATIENT, PRN MEDICATION HAS BEEN EFFECTIVE. NO FURTHER COMPLAINTS AT THIS TIME. PAIN IS TOLERABLE.
--- NOTE | 2019-01-30 16:17 | NUR ---
MEDICATED WITH PO PERCOCET ORDERED PER PT REQUEST FOR C/O PAIN TO R KNEE RATED 10/10 WITH MOANING. DRESSING D/I.
--- NOTE | 2019-01-30 18:00 | NUR ---
MEDICATION SOMEWHAT EFFECTIVE FOR PAIN.
[2019-01-30 18:26] VITALS: BP 104/67
[2019-01-30 20:00] VITALS: BP 110/58
--- NOTE | 2019-01-30 20:10 | NUR ---
24 HOUR CHART CHECK COMPLETE.
--- NOTE | 2019-01-30 21:03 | NUR ---
PRN PERCOCET ADMINISTERED FOR 10/10 RT KNEE PAIN. WILL CONTINUE TO MONITOR THE PT AND REASSESS. NO OTHER COMPLAINTS AT THIS TIME. CALL LIGHT IN REACH.
--- NOTE | 2019-01-30 22:00 | NUR ---
PT RESTING IN BED. NO SIGNS OF DISCOMFORT OR DISTRESS NOTED.
[2019-01-31] VITALS (9 sets, daily range): BP systolic 95–119; BP diastolic 37–75
--- NOTE | 2019-01-31 02:06 | NUR ---
PRN PERCOCET ADMINISTERED PRESCRIBED FOR 1010 RT KNEE PAIN. DRESSING ASSESSED. IT IS INTACT AND NO DRAINAGE IS SEEPING THROUGH. WILL CONTINUE TO MONITOR THE PT. NO OTHER COMPLAINTS AT THIS TIME. CALL LIGHT IN REACH.
--- NOTE | 2019-01-31 03:00 | NUR ---
PT STATES THAT THE PAIN MED "TOOK THE EDGE OFF". NO SIGNS OF DISCOMFORT OR DISTRESS NOTED. PT LAYING IN BED WATCHING TV AT THIS TIME. CALL LIGHT IN REACH.
--- NOTE | 2019-01-31 06:05 | NUR ---
PRN PERCOCET ADMINISTERED WITH A SIP OF WATER FOR PT COMPLAINT OF 10/10 KNEE PAIN. WILL CONTINUE TO MONITOR AND REASSESS. NO OTHER COMPLAINTS AT THIS TIME. CALL LIGHT IN REACH.
--- NOTE | 2019-01-31 07:05 | NUR ---
PT RESTING COMFORTABLY IN BED AT THIS TIME.
[2019-01-31 07:06] LABS: HEMATOCRIT 23.7 % (37.0-47.0); HEMOGLOBIN 7.4 g/dl (12.0-16.0); MEAN CELL VOLUME 109.2 fl (81.0-99.0); MEAN CORPUSCULAR HGB 34.1 pg (27.0-31.0); MEAN CORPUSCULAR HGB CONC 31.2 g/dl (33.0-37.0); MEAN PLATELET VOLUME 9.5 fl (9.6-12.3); PLATELET COUNT AUTOMATED 292 10*3/uL (130-400); RED BLOOD COUNT 2.17 10*6/uL (4.10-5.10); RED CELL DISTRI WIDTH 17.2 % (0-14.5); WHITE BLOOD COUNT 2.9 10*3/uL (4.8-10.8)
[2019-01-31 07:37] LABS: BUN 14 mg/dl (7-24); CHLORIDE 115 mmol/L (98-107); SODIUM 143 mmol/L (136-145)
[2019-01-31 07:40] LABS: CREATININE 0.49 mg/dL (0.55-1.02)
[2019-01-31 08:21] LABS: PLATELET SUFFICIENCY NORMAL (NORMAL); POLYCHROMASIA SLIGHT; TOTAL CELLS COUNTED 100 #CELLS
--- NOTE | 2019-01-31 08:31 | NUR ---
HARVEY NGUYỄN Gwen [id number] Please refer to the physician's history and physical for past medical history, comorbid conditions, and allergies. 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 PATIENT UNSURE HOW THIS HAPPENED. Surface the patient is resting on: Position Pro SKIN PREVENTION RECOMMENDATION: 1. Pressure redistribution support surface as appropriate 2. Elevate heels 3. Remove boots/TEDS every shift and reapply 4. Head of bed 30 degrees as tolerated 5. Assess nutrition and hydration 6. Manage moisture 7. Avoid the use of containment devices while in bed 8. Use absorptive products on surfaces limit layers of linens on bed 9. Turn and reposition every 1-2 hours in bed and every 1 hour in chair as tolerated 10. Weight shifts every 15 minutes while up in chair 11. Offloading with pillows or device to keep heels elevated off bed 12. Monitor skin at least every shift 13. Inspect under medical devices twice a day WOUND TREATMENT RECOMMENDATIONS: CONTINUE CURRENT ORDERS TO COCCYX. WHEEL CHAIR CUSION WHEN OUT OF BED.
--- NOTE | 2019-01-31 09:00 | NUR ---
case management visits with patient, patient will be going home and will be administering her own iv medications, patient would like to have [facility], scripts for iv antibiotics faxed to Kaykay from [facility]. she will check on benefits and any costs patient may have for medications, patient is having more testing done today and will possibly be going home tomorrow.
--- NOTE | 2019-01-31 09:18 | NUR ---
Dr. Nguyen notified of wound care recommendtations.
--- NOTE | 2019-01-31 09:52 | NUR ---
PERCOCET GIVEN FOR C/O RT KNEE PAIN. WILL MONITOR.
--- NOTE | 2019-01-31 10:00 | NUR ---
10:00 MEDS WILL BE GIVEN AT A LETTER TIME. PT FOR SURGERY.
--- NOTE | 2019-01-31 11:00 | NUR ---
PERCOCET HELPING, NO FULLY EFFECTIVE. WILL MONITOR.
--- NOTE | 2019-01-31 13:59 | NUR ---
PHYSICAL THERAPY Patient was out of her room for surgery this pm when approached for therapy. Will continue as able per POC. Anish Gaston, REHAB DIRECTOR
--- NOTE | 2019-01-31 14:44 | NUR ---
case management received a call from Kaykay [facility]bl[facility], patient will have a $3.40 copay for iv medications. case management will follow
--- NOTE | 2019-01-31 14:58 | NUR ---
percocet given for c/o rt knee pain. will monitor.
--- NOTE | 2019-01-31 16:12 | NUR ---
NOTIFIED DR. BUSTILLOS OF CRITICAL DVT RESULTS.
--- NOTE | 2019-01-31 19:20 | NUR ---
Shift chart check completed.24 HR chart check completed.
--- NOTE | 2019-01-31 21:02 | NUR ---
PT WAS MEDICATED AT 1945 WITH PERCOCET FOR PAIN "10"/10 AND IT'S NOW DOWN TO "8"/10. PICC LINE DRESSING CHANGED PER POLICY. ROOM AIR, NO SHORTNESS OF BREATH. SEE ALL APPROPRIATE INTERVENTIONS.
[2019-02-01] VITALS: BP 100/79
--- NOTE | 2019-02-01 01:16 | NUR ---
PT UP TO BSC. MEDICATED WITH PERCOCET BY MOUTH FOR PAIN IN HER LEG "9"/10. WHILE SHE WAS OUT OF BED I FOUND A RED TABLET IN HER BED. AFTER CHECKING IN THE [employer] [facility] THE TABLET WAS XARELTO SHE WAS DOCUMENTED RECEIVING AT 1726. DOSE OBTAINED FROM [facility] AND GIVEN NOW.
--- NOTE | 2019-02-01 01:54 | NUR ---
EARLIER PERCOCET HELPING "SOME".
--- NOTE | 2019-02-01 05:45 | NUR ---
OMERET FOR PAIN RT LEG, "9"/10.
[2019-02-01 06:09] LABS: HEMATOCRIT 24.2 % (37.0-47.0); HEMOGLOBIN 7.6 g/dl (12.0-16.0); MEAN CORPUSCULAR HGB 34.2 pg (27.0-31.0); MEAN CORPUSCULAR HGB CONC 31.4 g/dl (33.0-37.0); MEAN PLATELET VOLUME 9.4 fl (9.6-12.3); PLATELET COUNT AUTOMATED 335 10*3/uL (130-400); RED BLOOD COUNT 2.22 10*6/uL (4.10-5.10); RED CELL DISTRI WIDTH 17.1 % (0-14.5); WHITE BLOOD COUNT 3.1 10*3/uL (4.8-10.8)
[2019-02-01 06:31] LABS: BUN 14 mg/dl (7-24); CHLORIDE 113 mmol/L (98-107); CREATININE 0.54 mg/dL (0.55-1.02); POTASSIUM 4.3 mmol/L (3.5-5.1); SODIUM 142 mmol/L (136-145)
--- NOTE | 2019-02-01 06:39 | NUR ---
EARLIER PERCOCET "HELPING".
[2019-02-01 06:58] LABS: BASOPHILS 1 % (0-1); PLATELET SUFFICIENCY NORMAL (NORMAL); TOTAL CELLS COUNTED 100 #CELLS
[2019-02-01 06:59] LABS: POLYCHROMASIA SLIGHT
[2019-02-01 08:00] VITALS: BP 107/83
--- NOTE | 2019-02-01 08:34 | NUR ---
PHYSICAL THERAPY Patient is eating breakfast at this time. Will check back later. GEOVANNI LUCERO CLEAT FEEDER
--- NOTE | 2019-02-01 09:00 | NUR ---
case management visits with patient, patient is a possibly discharge today, patient will have iv medications in the hospital today and [facility] will see patient at home in the afternoon tomorrow, Notified Kaykay leblanc [facility] that patient would be going home today and start of care is tomorrow, also notified Eva at [facility]
--- NOTE | 2019-02-01 09:31 | NUR ---
PHYSICAL THERAPY Pt supine to sit sbax1 with using left leg to help right. Pt sit-supine karan x1 with help for right leg. Pt sit-std sbax1 with education for hand placement. Pt ambulated 5 feet x 1 minax1 with walker education on pushing on walker to relieve weight and assist with pain. Pt completed supine ankle pumps, quad sets, glut sets, attempted laq and heelslides but unable. Pt was seen for 24 minutes. Aleta [id number]
--- NOTE | 2019-02-01 09:57 | NUR ---
PERCOET GIVEN FOR C/O RT KNEE PAIN. RATES 9/10 PAIN SCALE. WILL MONITOR.
--- NOTE | 2019-02-01 10:14 | NUR ---
Dr. Garcia notified of wound care recommendations.
--- NOTE | 2019-02-01 11:27 | NUR ---
PT IS REFUSING DISCHARGE PHOTO'S, STATING DRSG WAS JUST CHANGED YESTERDAY.
[2019-02-01 12:00] VITALS: BP 105/65
[2019-02-01] MEDS ORDERED: Duragesic 25 M25 MCG T (13:06)
[2019-02-01] MEDS ORDERED: PHARMASSURE FO0.4 MG PO (13:06)
[2019-02-01] MEDS ORDERED: PERCOCET 10-321 EACH PO (13:06)
--- NOTE | 2019-02-01 13:07 | NUR ---
case management checked on cost of xeralto for patient, patient's cost will be $5. patient notified
[2019-02-01] MEDS ORDERED: XARELTO1 EACH PO (13:27)
[2019-02-01] MEDS ORDERED: XARE20MG PO (13:27)
--- NOTE | 2019-02-01 13:58 | NUR ---
PERCOCET GIVEN FOR C/O RT KNEE PAIN. RATES 9/10 ON PAIN SCALE. WILL MONITOR.
--- NOTE | 2019-02-01 15:00 | NUR ---
MSDIS Discharge instructions reviewed with patient/family. Patient receptive and verbalizes understanding. Follow-up care arranged. Written instructions given to patient/family. BRENDA LANE
--- NOTE | 2019-02-01 15:49 | NUR ---
Patient to be discharged prior to Occupational Therapy evaluation. Sherry May OTR/L
--- NOTE | 2019-02-02 07:48 | NUR ---
PHYSICAL THERAPY CO-SIGN I approve of the Physical Therapy notes written above. DEMARCUS BARTHOLOMEW
[2019-02-21] MEDS ORDERED: GABAPENTIN800 MG PO (01:54)
[2019-02-25] MEDS ORDERED: B12,B-12,B 12500 MC1 PO (14:19)
[2019-02-25] MEDS ORDERED: OMNICEF300 MG PO (15:06)
[2019-03-09 10:08] LABS: ACID FAST CULTURE Negative (.)
== END 2019-02-01 15:00 | disposition home or self-care (01) | DRG 853 ==
LOC: ED 09:48 → 4E 16:11 → EDHOLD 16:11 → 4E 16:59
PROVIDERS: Internal Medicine; Physician Assistant; Student in an Organized Health Care Education/Training Program; ADMIT Internal Medicine
PROC: 0S9C3ZZ Drainage of Right Knee Joint, Percutaneous Approach (ICD-10-PCS; principal; 2019-01-26)
PROC: 0QB Lower Bones, Excision (ICD-10-PCS; 2019-01-27)
PROC: 0QB Lower Bones, Excision (ICD-10-PCS; 2019-01-27)
PROC: 02HV33Z Insertion of Infusion Device into Superior Vena Cava, Percutaneous Approach (ICD-10-PCS; 2019-01-28)
PROC: B24BZZ4 Ultrasonography of Heart with Aorta, Transesophageal (ICD-10-PCS; 2019-01-31)
DX: A41.9 Sepsis, unspecified organism (principal); E43 Unspecified severe protein-calorie malnutrition; M00.9 Pyogenic arthritis, unspecified; I50.42 Chronic combined systolic (congestive) and diastolic (congestive) heart failure; I82.412 Acute embolism and thrombosis of left femoral vein; I82.432 Acute embolism and thrombosis of left popliteal vein; I82.442 Acute embolism and thrombosis of left tibial vein; D70.9 Neutropenia, unspecified; M54.2 Cervicalgia; E53.8 Deficiency of other specified B group vitamins; D53.9 Nutritional anemia, unspecified; R10.9 Unspecified abdominal pain; R74.0 Nonspecific elevation of levels of transaminase and lactic acid dehydrogenase [LDH]; M54.5 Low back pain; J44.9 Chronic obstructive pulmonary disease, unspecified; F41.8 Other specified anxiety disorders; G89.29 Other chronic pain; Z96.641 Presence of right artificial hip joint; K58.0 Irritable bowel syndrome with diarrhea; Z96.652 Presence of left artificial knee joint; F17.210 Nicotine dependence, cigarettes, uncomplicated; R06.82 Tachypnea, not elsewhere classified; R79.89 Other specified abnormal findings of blood chemistry; E83.42 Hypomagnesemia; E87.6 Hypokalemia; E87.8 Other disorders of electrolyte and fluid balance, not elsewhere classified; Z22.322 Carrier or suspected carrier of Methicillin resistant Staphylococcus aureus; Z71.6 Tobacco abuse counseling; Z88.5 Allergy status to narcotic agent; Z88.6 Allergy status to analgesic agent; Z98.84 Bariatric surgery status; Z90.710 Acquired absence of both cervix and uterus; Z90.79 Acquired absence of other genital organ(s); Z90.722 Acquired absence of ovaries, bilateral; Z90.49 Acquired absence of other specified parts of digestive tract; Z83.3 Family history of diabetes mellitus; Z82.49 Family history of ischemic heart disease and other diseases of the circulatory system; Z82.0 Family history of epilepsy and other diseases of the nervous system; Z79.899 Other long term (current) drug therapy; Z68.30 Body mass index [BMI] 30.0-30.9, adult

== ENCOUNTER 2019-03-13 13:33 | Inpatient (IN) | payer OTHER, MEDICAID ==
[2019-03-13] VITALS (10 sets, daily range): BP systolic 77–119; BP diastolic 0–92
[~2019-03-13] VITALS: Ht 175.2 cm; Wt 103.9 kg
--- NOTE | ~2019-03-13 | CON ---
[place], [place] REPORT OF CONSULTATION NAME: HARVEY NGUYỄN UNIT #: [id number] ROOM: [facility] DOCTOR: ADELIA, PHD LURDES BIRTHDATE: [birth year] DOS: 03/14/2019 The patient was not able to participate in an evaluation today. I will follow up with her tomorrow. Rosalind Grissom, PhD CM:CONSTR:REPORT OF CONSULTATION 1659 03/14/19 2301 interface
--- NOTE | ~2019-03-13 | EKG ---
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
--- NOTE | ~2019-03-13 | CON ---
[place], [place] REPORT OF CONSULTATION NAME: HARVEY NGUYỄN UNIT #: [id number] ROOM: [facility] DOCTOR: ROBERTA LOPEZ MD,LAURA BIRTHDATE: [birth year] DOS: 03/14/2019 PULMONARY CONSULTATION EVALUATION REASON FOR CONSULTATION: Change in mental status as well as respiratory failure. HISTORY OF PRESENT ILLNESS: This is a 58-year-old white female patient who has been admitted to the hospital under the care of the hospitalist services. On the date of 03/14/2019. History could not be obtained since the patient was still noted change in mental status but was noted to be awake and alert, otherwise. She has been admitted to the hospital, as the patient been noted with past history of major depression patient's suicidal attempt previously. She has been brought to the hospital in the Emergency Room on 03/13/2019. She has been brought to the hospital by the ambulance as the patient has been reported with a slurred speech. The patient has taken unknown quantity, possibly Percocet as stated by the family members. She has been noted with sinus tachycardia and low oxygen saturation. She presented to the Emergency Room where she has been given the Narcan with some improvement in the change in mental status, but the patient still noted confusional status. Later on, the patient was noted similar symptoms. The patient during her admission in the Intensive Care Unit where she has been noted to be awake, after that the patient was noted, yelling, screaming, but still noted in confusional status. This morning, the patient was seen, she has been still noted confusional status, ongoing, but noted more awake and alert this morning. The oxygen supplementation continued. She has been noted severe metabolic acidosis yesterday acute changes that was also observed on this hospitalization as a new finding. The patient was remained in Intensive Care Unit for overnight. Tachycardia has been noted to be present still intermittently appeared to be sinus tachycardia. The patient was also noted with mild hypotension, which has been treated with intravenous fluids administration. The patient was not noted in any respiratory distress this morning, has not reported any symptoms of hemoptysis per nursing staff. It was not noted significant cough as well. Further history of the patient could not be obtained. REVIEW OF SYSTEMS: Could not be performed current change in mental status and confusional status. PAST MEDICAL HISTORY: The past history was also reviewed from the previous hospitalizations. She has been reported a history of: 1. COPD. 2. Major depression. 3. General anxiety disorder. 4. Previous diagnosis and management for renal abscess in beginning of February 2019. Prior to that, the patient has been treated for infection, MRSA of the knee area, treated with daptomycin. 5. Nodule/mass of the liver. 6. History of left bundle branch block. 7. Past history of deep venous thrombosis of the lower extremity as well. 8. Intervertebral disk disease, low back pain. [place], [place] REPORT OF CONSULTATION NAME: HARVEY GNUYỄN UNIT #: [id number] ROOM: [facility] DOCTOR: NEVILLE LOPEZ MDM BIRTHDATE: [birth year] 9. Congestive heart failure with diastolic and systolic dysfunction also stated. PAST SURGICAL HISTORY: Noted as: 1. Gastric bypass grafting surgery in the past. 2. Complete hysterectomy. 3. Gastric banding surgery. 4. Right total hip replacement. 5. Cholecystectomy. 6. Right knee arthroscopy. SOCIAL HISTORY: Noted chronic tobacco use about half a pack of cigarettes for several years and noted more than that, tobacco use in the past, but the exact quantity was unknown. There was no history of illicit drug use reported, stated. The patient reported history of social drinking alcohol. FAMILY HISTORY: The patient reported for cardiac dysrhythmia, dementia and others. HOME MEDICATIONS: Listed has a Coreg, vitamin D, vitamin B12, Flexeril, Adderall ____ mg doses, dicyclomine, nebulized bronchodilators as albuterol sulfate, folic acid, gabapentin, Latuda, Percocet 10/325 mg, potassium 40 mEq p.o. b.i.d. and Xarelto 20 mg at bedtime. DRUG ALLERGIES: Noted allergies to: 1. TORADOL. 2. MORPHINE. 3. TRAMADOL. CURRENT MEDICATIONS: Administered were noted, vitamin D, folic acid, Xarelto 15 mg at bedtime, doxycycline 100 mg IV b.i.d. and some other p.r.n. meds. The patient has also received the IV N-acetylcysteine. PHYSICAL EXAMINATION: GENERAL: This is a 58-year-old white female who has been noted currently confused. Height of 5 feet 9 inches, weight of 229 pounds, BMI 33.8. VITAL SIGNS: For was noted as normal temperature, respiratory rate ranges between 15-8 previously reported. The heart rate ranged between 91-112. Blood pressure 84/44 patient 103/60. Pulse oxygen saturation recorded on admission as 86% on 2 liter nasal cannula on admission, currently 4 liters nasal cannula 90-95% saturation. Intake and output, intake for the patient is 5.85 liters, output 250 mL, pulse 4.605 liters recorded. HEENT: Limited exam. Head was atraumatic. Eyes nonicterus. NECK: Supple. Pupils appear to be dilated normally. CARDIOVASCULAR: S1, S2 is audible. LUNGS: Noted with decreased breath sounds in the lungs bilaterally. There were no wheezing or crackles heard. ABDOMEN: Soft. Moderate obesity. Bowel sounds present without tenderness. EXTREMITIES: Without acute edema, clubbing or cyanosis. MUSCULOSKELETAL: Without acute deformities. [place], [place] REPORT OF CONSULTATION NAME: HARVEY NGUYỄN UNIT #: [id number] ROOM: [facility] DOCTOR: ROBERTA LOPEZ MD,LAURA BIRTHDATE: [birth year] CENTRAL NERVOUS SYSTEM: Unable to assess, confusional status noted above, the patient is moving all the upper and lower extremities equally. LABORATORY DATA: CBC yesterday on admission, WBC count 9.0, hemoglobin 10.3, platelet count 326,000. CMP that was done yesterday was noted as BUN 30, creatinine 2.26, glucose 118. CO2 was 12. Anion gap was elevated 16 with that level. Urine drug screen for the noted as positive for opiates on admission. CK-MB, troponin, CPK 197. The troponin was normal yesterday. Second troponin and the third troponin remains normal yesterday. The salicylate level was noted 4.2 that was normal. Acetaminophen level was recorded at 15.2. CMP that was done this morning, BUN 31, creatinine 2.19. Glucose 97, sodium 143, potassium 3.3, CO2 was 14. Phosphorus 6.0. AST and ALT noted AST minimally elevated at 36. Normal ALT. Alkaline phosphatase of 182, minimally elevated. Anion gap was noted as 18. Arterial blood gas that was done yesterday this patient was reviewed, pH of 7.204, pCO2 of 42, pO2 of 79 consistent with severe metabolic acidosis with mild respiratory acidosis. Arterial blood gas this morning, 4 liters nasal cannula, pH still noted at 7.06, pCO2 of 37, pO2 81 consistent with severe metabolic acidosis remains persistent. Ammonia level was noted as 36. Lactic acid yesterday was done to assess the component of lactic acidosis noted with normal lactic acid. The AST and ALT remains normal this morning. The PT/INR 1.5, mildly elevated. IMPRESSION: The patient will be currently admitted to the hospital, the patient was noted with acute drug overdose. The patient's severe metabolic acidosis. Elevated anion gap. Differentials to be considered as glycols, ____, chloroquine, oxyprolene that could result from the Tylenol, lactic acidosis, which is excluded, methanol poisoning, aspirin causing, uremia and ketoacidosis. The review of the radiology data, the chest x-ray that was done on admission was reviewed, shows increased pulmonary venous congestion marking was noted without any evidence of acute pulmonary infiltrates. IMPRESSION: 1. The patient will be currently admitted to the hospital noted persistent change in mental status with anion gap, metabolic acidosis is resulting from uremia and acute kidney injury. The most likely cause acute kidney injury might be resulting drug toxicity including for interstitial nephritis, the patient remains in consideration. 2. Severe metabolic acidosis still remains persistent has not noted corrected. 3. Hypotension, most likely relate to oral intravascular volume depletion and other reasons as well including drug-induced hypotension. 4. The patient with history of deep venous thrombosis, lower extremity, currently treated with Xarelto, acute kidney injury. The patient could have severe toxicity related to the use of the Xarelto at this time resulting in toxicity and abnormal bleeding. 5. The patient with a past history of major depression, suicidal attempts. 6. Skin abscess related to MRSA infection, which has been treated previously as well. 7. Elevated INR resulting from the use of the Xarelto rather than from any toxicity related to current Tylenol drug overdose. [place], [place] REPORT OF CONSULTATION NAME: HARVEY NGUYỄN UNIT #: [id number] ROOM: [facility] DOCTOR: ROBERTA LOPEZ MD,[facility] BIRTHDATE: [birth year] 8. Acute drug overdose. The patient with acetaminophen, and also opiates as well. 9. Acute hypoxic respiratory failure, multifactorial related to pulmonary venous congestion, hypoventilation and other reasons. 10. The patient with history of chronic nicotine dependence with COPD without any evidence of acute exacerbation. PLAN OF THERAPY: Continue the vasopressor therapy. The patient maintained pulse ox 92% or greater. The patient has already been ordered intravenous bicarbonate drip that will be continued. Discontinue the Xarelto at this time until the acute kidney improves. Switch to the Eliquis, starting tomorrow for this patient. The ideal way to find out the level of the anticoagulant activity resolved ____ actively assessment which is not done commonly. Empirical management will be continued. Monitor kidney injury as well. Assessment and management of the patient was already been ordered to be done by the Nephrology services, follow the recommendation of treatment. At this time, the patient is not showing any signs or symptoms consistent with acute sepsis. Mild pulmonary venous congestion related to the current ____ will be considered. The patient has been noted with past history of combined systolic, diastolic heart failure. The patient was not noted with any acute congestive heart failure with current assessment. Supportive plan of management to be continued. The patient does develop any respiratory distress and hypoxia with further progression of the hypoxia. The patient intubation and mechanical ventilation rather than using the BiPAP. BiPAP would not help the patient because of severe metabolic acidosis management. Other therapy, plan of management, additional treatment changes, continued to be made based on progression of the illness. LAURA GRANADOS MD CM:CONSTR:REPORT OF CONSULTATION 1227 03/15/19 0051 interface
--- NOTE | ~2019-03-13 | EKG ---
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
--- NOTE | ~2019-03-13 | EKG ---
[place], [place] ELECTROCARDIOGRAM REPORT NAME: HARVEY NGUYỄN UNIT #: [id number] ROOM: [facility] DOCTOR: KARLENE DRAFT REPORT BIRTHDATE: [birth year] [facility] Test Date: 2019-03-13 Test Time: 17:39:47 Pat Name: HARVEY NGUYỄN Department: Room: [facility] Gender: F Cessation Systems Outreach Specialist: : 1960 Requested By: UMAIR MARTINEZ Order Number: [id number] Reading MD: Anup Sommer MD Measurements Intervals [place] Rate: 100 P: 7 CO: 172 QRS: -19 QRSD: 159 T: 164 QT: 437 QTc: 564 Interpretive Statements Sinus tachycardia Left bundle branch block Compared to ECG 02/24/2019 15:21:24 Sinus rhythm no longer present Electronically Signed On 03-14-2019 5:48:28 PDT by Anup Sommer MD CM:EKGRPT:ELECTROCARDIOGRAM REPORT [id number] UMAIR MARTINEZ EPIPHKELLEY DRAFT REPORT UMAIR MARTINEZ
[~2019-03-13 13:33] MED LIST changes: +Duragesic 25 M25 MCG T; +GABAPENTIN800 MG PO; +IMODIUM A-D2 M2 PO; +OMNICEF300 MG PO; +XARE20MG PO; +XARELTO1 EACH PO
[2019-03-13 14:24] LABS: HEMATOCRIT 34.1 % (37.0-47.0); HEMOGLOBIN 10.3 g/dl (12.0-16.0); MEAN CELL VOLUME 111.4 fl (81.0-99.0); MEAN CORPUSCULAR HGB 33.7 pg (27.0-31.0); MEAN CORPUSCULAR HGB CONC 30.2 g/dl (33.0-37.0); MEAN PLATELET VOLUME 9.7 fl (9.6-12.3); PLATELET COUNT AUTOMATED 326 10*3/uL (130-400); RED BLOOD COUNT 3.06 10*6/uL (4.10-5.10); RED CELL DISTRI WIDTH 15.6 % (0-14.5)
[2019-03-13 14:35] LABS: ACT PARTIAL THROMBO TIME 28.9 SECONDS (20.0-32.1); INTERNATIONAL NORM RATIO 1.1 (2.0-3.5)
[2019-03-13 14:39] LABS: ACETAMINOPHEN (TYLENOL) 15.2 ug/ml (10-30); ALBUMIN 2.7 gm/dl (3.1-4.5); ALKALINE PHOSPHATASE 200 U/L (45-117); BUN 30 mg/dl (7-24); CHLORIDE 113 mmol/L (98-107); CREATININE 2.26 mg/dL (0.55-1.02); POTASSIUM 3.6 mmol/L (3.5-5.1); SGOT/AST 36 IU/L (3-35); SGPT/ALT 14 U/L (12-78); SODIUM 138 mmol/L (136-145); TOTAL PROTEIN 6.7 gm/dL (6.4-8.2)
[2019-03-13 14:42] LABS: ETHYL ALCOHOL < 3.0 mg/dl (<3)
[2019-03-13 14:45] LABS: THYROID STIM HORMONE (HS) 0.333 uIU/ml (0.358-4.75)
[2019-03-13 14:47] LABS: TOTAL CELLS COUNTED 100 #CELLS
[2019-03-13 14:49] LABS: PLATELET SUFFICIENCY NORMAL (NORMAL)
--- NOTE | 2019-03-13 15:02 | NUR ---
AFTER NARCAN WAS GIVEN THE PATIENT DID AWAKEN. SHE WAS ABLE TO TELL ME SHE DID TAKE 5-6 PERCOCET TOOK SEVERAL OF HER 800MG NEURONTIN. AND ALSO TOOK "I DONT KNOW HOW MANY" FLEXERIL. WHEN ASK IF SHE WAS TRYING TO HARM HERSELF SHE STATES NO SHE WAS TRYING TO HELP HER BACK AND NECK PAIN. FAMILY REPORTS SHE DOES ABUSE HER MEDICATIONS. EDDY CANNON RN.
[2019-03-13 15:11] LABS: BILIRUBIN NEGATIVE (NEGATIVE); BLOOD 2+ (NEGATIVE); CLARITY SL CLOUDY (CLEAR); COLOR YELLOW (YELLOW); GLUCOSE NEGATIVE (NEGATIVE); KETONE NEGATIVE (NEGATIVE); LEUKO ESTERASE NEGATIVE (NEGATIVE); NITRITE NEGATIVE (NEGATIVE); PH 5.5 (5.0-9.0); SPECIFIC GRAVITY 1.025 (1.005-1.030); UROBILINOGEN 0.2 E.U./dl (0.2-1.0)
[2019-03-13 15:20] LABS: URINE AMPHETAMINES < 1000 (1000ng/ml); URINE BARBITURATES < 200 (200ng/ml); URINE BENZODIAZEPINES < 200 (200ng/ml); URINE CANNABINOIDS (THC) < 50 (50ng/ml); URINE COCAINE < 300 (300ng/ml); URINE METHADONE < 300 (300ng/ml); URINE OPIATES > 300 (300ng/ml)
[2019-03-13 15:23] LABS: URINE PHENCYCLIDINE < 25 (25ng/ml)
[2019-03-13 15:33] LABS: MUCOUS 1+
--- NOTE | 2019-03-13 15:43 | NUR ---
DR SEALS IN TO TALK WITH THE PATIENT AND AT THIS TIME SHE STATES SHE DID TAKE APPROX 6 PERCOCET TODAY TO HELP WITH THE PAIN. THE FAMILY STATES SHE HAS BEEN TAKING MORE MEDICAITON THAN SHE IS ADMITTING AND STATES SHE HAS HAD TO BE ADMITTED IN THE PAST FOR AN OVERDOSE.. DR SEALS EXPLAINED ABOUT THE ADM TO ICU EDDY CANNON RN.
[2019-03-13 16:25] LABS: CPK 197 U/L (26-192)
--- NOTE | 2019-03-13 16:40 | NUR ---
A 58, admitted to ICCU, under the services of JORJE Tucker DO with a diagnosis of ACETAMINOPHEN. Chief complaint is DRUG OVERDOSE. Patient arrived via stretcher from ER. Monitor applied. Initial assessment completed. Vital signs taken and recorded. JORJE TUCKER DO notified of admission to the unit. Orders received. See assessment for past medical history, medications and allergies. Patient and/or family oriented to unit. [facility] visitation policy reviewed. Clothing/patient valuable form completed. DENVER LUCIANO
[2019-03-13 16:45] LABS: TROPONIN I < 0.015 ng/ml (<0.045)
--- NOTE | 2019-03-13 16:47 | NUR ---
ABRASION NOTED TO RIGHT KNEE. NO PICTURE. ALSO PT STATED SHE HAS BEEN GOING TO THE WOUND CLINIC FOR A HEALING ABSCESS TO LEFT LABIA. PT DID NOT WANT PICTURES TAKEN OF HER LABIA. EDDY CANNON RN.
--- NOTE | 2019-03-13 16:52 | NUR ---
WHEN TAKING THE PATIENT TO THE FLOOR SHE STARTED PULLING AT HER TUBING FOR THE MONITOR, HER IV TUBIONG, SHE WAS SINGING LOUDLY IN THE ELEVATOR. WAS ABLE TO TALK WITH THE PATIENT LONG ENOUGH TO GET HER INTO BED AND AGAIN SHE STARTED PULLING AT THINGS. EDDY CANNON RN.
--- NOTE | 2019-03-13 17:46 | NUR ---
DR AHMADI IN TO SEE PT AND SHOWN THE WOUND TO PT'S LEFT FEMEROL AREA.
--- NOTE | 2019-03-13 17:47 | NUR ---
[facility] UNIT MADE AWARE OF NEW CONSULT ORDER.
--- NOTE | 2019-03-13 17:51 | NUR ---
PT DID NOT WANT US TO TAKE PICTURE OF HER FEMEROL AREA WOUND.
--- NOTE | 2019-03-13 18:21 | NUR ---
PT CONFUSED TO PLACE AND TIME. PT IN CONSTANT MOTION PULLING AT IV LINE AND PICC LINE. PULLING MONITOR LEADS OFF AND TRYING TO CRAWL OUT OF BED. DR CASTRO NOTIFIED OF NEED FOR BILATERAL SOFT WRIST RESTRAINTS AT THIS TIME.
--- NOTE | 2019-03-13 18:51 | NUR ---
Shift chart check completed.24 HR chart check completed.
[2019-03-13 20:04] LABS: ABG HCO3 11.4 mmol/l (22-26); ABG O2 SATURATION 94.2 % (95-97); ARTERIAL BLOOD GAS PCO2 42.9 mmHg (35-45); ARTERIAL BLOOD GAS PO2 79.8 mmHg (80-90)
--- NOTE | 2019-03-13 20:05 | NUR ---
AT 1920 PT SOMNOLENT WITH SLOW RESPIRATIONS. HER PULSE OX ON 2L WAS 86%, TITRATED O2 TO 4L/MIN. AT 194 SHE'S STILL HAVING SLOW RESPIRATION, ABOUT 10/MINUTE AND HER PULSE OX 94%. SHE HAD BEEN IN HIGH FOWLERS POSITION WITH HER HEAD FALLING FORWARD. RECLINED THE HEAD OF THE BED, SHE AROUSES TO HER NAME BUT UNABLE TO STAY AWAKE. PT SAYS "YES" WHEN I ASK IF SHE SMOKES. SHE'S UNABLE TO STAY AWAKE. SHE'S IN NSR WITH LBBB, HER BP IS 92/44. WITH RECLINING AND 4L/MIN NASAL CANNULA SHE IS 95% O2 SAT.
[2019-03-13 20:11] LABS: ABG BASE EXCESS -18.2 mmol/L (-2.0-2.0); ARTERIAL BLOOD GAS PH 7.047 (7.35-7.45)
--- NOTE | 2019-03-13 20:35 | NUR ---
DR CASTRO WAS NOTIFIED OF PT'S SOMNOLENCE AND HER ABGS. ORDERS WERE RECEIVED. NARCAN 0.4MG IV GIVEN. PT AROUSES EASILY, HER SPEECH IS GARBLED, SHE CLAIMS TO BE DREAMING. HER RESPIRATORY RATE UP TO 16 AND HER PULSE OX 97%. DR CASTRO HAD ORDERED BIPAP BUT CALLED BACK AND SAID NOT TO APPLY AT PRESENT. WITHIN IN 5 MINUTES OF THE NARCAN PT IS AGITATED, KICKING AT THE RAILS, SCREAMING "DON'T LET ME , PLEASE DON'T LET ME !"
--- NOTE | 2019-03-13 20:48 | NUR ---
DR GRANADOS NOTIFIED OF CONSULT. REVIEWED HER LABS AND RESPONSE TO NARCAN. NO BIPAP TO BE USED. TO TITRATE FIO2 NEEDED AND IF PT BECOMES SOMNOLENT AGAIN SHE'S TO BE INTUBATED. DR CASTRO CALLED AND UPDATED. PT VERY ANXIOUS AND SCARED. EXPLANATIONS TO HER AND REASSURANCES GIVEN.
--- NOTE | 2019-03-13 21:43 | NUR ---
PT AWAKE, SHE HAS FREQUENT JERKS "I KEEP THINKING I'M FALLING". THIRD DOSE OF ACETADOTE UP TO INFUSE AT 34.4 ML/HR. FREQUENT REORIENTATION DONE. IV FLUIDS CONTINUE. PT ABLE TO DRINK AND HER HS DOSE OF XARELTO GIVEN. PT IS IN CONSTANT VIEW OF STAFF.
--- NOTE | 2019-03-13 22:10 | NUR ---
PT APPEARS TO BE HALLUCINATING, CALLS ME OTHER PEOPLE'S NAMES. SHE LAUGHS AT TIMES.
[2019-03-14] VITALS (53 sets, daily range): BP systolic 84–137; BP diastolic 40–94
--- NOTE | 2019-03-14 00:02 | NUR ---
PT TURNED SIDE TO SIDE, ATTEMPTED TO GET HER TO COMFORTABLE POSITION. SHE'S SLURRING HER SPEECH, HALLUCINATING, NOT MAKING EYE CONTACT WITH ME. BP OBTAINED 70/DOPPLER. IV SALINE INCREASED TO 999/HR. POISON CONTROL CALLED IN TO CHECK ON PT AND GAVE THEIR RECOMMENDATIONS. DR CASTRO NOTIFIED OF BP, POISON CONTROL'S RECOMMENDATIONS. ORDERS RECEIVED. PT DROWSY BUT AROUSES TO HER NAME.
--- NOTE | 2019-03-14 01:48 | NUR ---
FLUID BOLUS COMPLETE. BP 109/51. PT'S PULSE OX IS 96% ON 4L/MIN. RR 10-12/MIN. NO SEIZURE ACTIVITY. SLEEPING. BED IN LOW POSITION WITH WHEELS LOCKED.
--- NOTE | 2019-03-14 04:28 | NUR ---
BOTTOM DENTURE LOOSE IN HER MOUTH, REMOVED AND PLACED IN DENTURE CUP TOP DRAWER.
--- NOTE | 2019-03-14 04:29 | NUR ---
PT AROUSES TO HER NAME, DENIES PAIN.
--- NOTE | 2019-03-14 04:44 | NUR ---
DR CASTRO NOTIFIED OF BP 80'S SYSTOLIC. ORDERS RECEIVED.
--- NOTE | 2019-03-14 04:56 | NUR ---
[facility] ANSWERING SERVICE NOTIFIED OF CONSULT WITH A REQUEST FOR CALL BACK
[2019-03-14 05:00] LABS: HEMATOCRIT 28.7 % (37.0-47.0); HEMOGLOBIN 8.7 g/dl (12.0-16.0); MEAN CORPUSCULAR HGB 33.3 pg (27.0-31.0); MEAN CORPUSCULAR HGB CONC 30.3 g/dl (33.0-37.0); MEAN PLATELET VOLUME 9.9 fl (9.6-12.3); PLATELET COUNT AUTOMATED 296 10*3/uL (130-400); RED BLOOD COUNT 2.61 10*6/uL (4.10-5.10); RED CELL DISTRI WIDTH 15.7 % (0-14.5); WHITE BLOOD COUNT 7.3 10*3/uL (4.8-10.8)
--- NOTE | 2019-03-14 05:08 | NUR ---
DR MCKENNA NOTIFIED OF ABG'S. REVIEWED LABS AND TREATMENTS WITH HIM. ORDERS RECEIVED.
[2019-03-14 05:19] LABS: ATYPICAL LYMPHS 1 % (0-0); PLATELET SUFFICIENCY NORMAL (NORMAL); TOTAL CELLS COUNTED 100 #CELLS
[2019-03-14 05:20] LABS: BURR CELLS MODERATE; SCHISTOCYTES FEW
[2019-03-14 05:30] LABS: CREATININE 2.19 mg/dL (0.55-1.02); POTASSIUM 3.3 mmol/L (3.5-5.1); TOTAL PROTEIN 5.4 gm/dL (6.4-8.2)
[2019-03-14 05:38] LABS: ABG HCO3 10.5 mmol/l (22-26); ARTERIAL BLOOD GAS PCO2 37.9 mmHg (35-45); ARTERIAL BLOOD GAS PO2 81.4 mmHg (80-90)
[2019-03-14 05:40] LABS: ABG BASE EXCESS -18.7 mmol/L (-2.0-2.0)
[2019-03-14 05:41] LABS: ARTERIAL BLOOD GAS PH 7.065 (7.35-7.45)
--- NOTE | 2019-03-14 05:58 | NUR ---
ABG'S WERE DRAWN RT RADIAL FOLLOWING SATISFACTORY JU'S TEST. PT AWAKE, WATCHING ME WHILE ABG'S DRAWN, COOPERATIVE. NEW IV SITE OBTAINED LEFT WRIST BY RAMY HERNANDEZ. 1000 D5W/3 AMPS BICARB STARTED AT 100/HR PER ORDER. LEVOPHED DRIP STARTED AT 4MCG/MIN.
--- NOTE | 2019-03-14 06:20 | NUR ---
BP STAYING CONSISTENTLY GREATER THAN 100 SYSTOLIC SINCE STARTING THE LEVOPHED AND MAP >60.
--- NOTE | 2019-03-14 06:30 | NUR ---
DR CASTRO UPDATED ON INITIATION OF BICARB DRIP AND LEVOPHED DRIPS AND PT'S CURRENT VITAL SIGNS AND MENTAL STATUS. ALSO UPDATED ON ALL MORNING LABS, INCLUDING CRITICAL PH, AMMONIA, CALCIUM. NO NEW ORDERS.
--- NOTE | 2019-03-14 09:45 | NUR ---
[facility] WOUND CARE NURSE IN TO ASSESS PT'S LEFT UPPER INNER THIGH GROIN AREA.
[2019-03-14 10:19] LABS: INTERNATIONAL NORM RATIO 1.5 (2.0-3.5)
[2019-03-14 10:22] LABS: SGOT/AST 34 IU/L (3-35); SGPT/ALT 13 U/L (12-78)
--- NOTE | 2019-03-14 10:30 | NUR ---
Globe Tester in to talk to patient. Patient states lives at home alone with her family checking in on her. There are 5-6 steps in the home. Physician: daughter is unsure of family physician [facility]acy: [facility]: has had in the past but not currently per the daughter, Lindsay, who is at the bedside Patient's level of ADLs: MINIMAL ASSIST Patient has working utilities: yes DME: walker Follow-up physician's appointment after d/c: will be made by the hospitalist nurse director upon discharge Does patient want to access PORTAL?: no Discharge plan discussed with patient and daughter, Lindsay, who is at the bedside. Patient with incomprehensible speech. Daughter states she lives a home alone with family checking in on her. She is normally independent in her ADLs and uses a walker for ambulation. Discussed BHU consult with daughter and daughter states he does see psych outpatient. Discussed will see what psych plans are and CM will reach out to her. Daughter verbalized an understanding. Discharge undecided at this time. DEMARCUS STARK
--- NOTE | 2019-03-14 10:50 | NUR ---
HARVEY NGUYỄN Gwen [id number] Please refer to the physician's history and physical for past medical history, comorbid conditions, and allergies. Diagnosis: OVERDOSE BY ACETAMINOPHEN OVERDOSE OF OPIATE OR Mike Score: 20,LOW OR NO RISK WOUND DESCRIPTIONS: Wound Number: 1 Location of the wound: LEFT GROIN/LABIA Type of wound: ABSCESS Thickness: Full Size: 2.0cm X 1.0cm X 0.8cm Tunneling: NONE Undermining: NONE Sinus Tract: NONE Presence of Exudate: Serous sanguineous Amount: Light Color: Yellow Odor: None Periwound Skin Appearance: Induration Wound edges: APPROXIMATED Pain (associated with wound): TENDER TO TOUCH. How does patient state this happened? PATIENT STATES THIS AREA WAS AN ABSCESS THAT HAS BEEN THERE FOR APPROXIMATELY 3 WEEKS. Surface the patient is resting on: XPRT SKIN PREVENTION RECOMMENDATION: 1. Pressure redistribution support surface as appropriate 2. Elevate heels 3. Remove boots/TEDS every shift and reapply 4. Head of bed 30 degrees as tolerated 5. Assess nutrition and hydration 6. Manage moisture 7. Avoid the use of containment devices while in bed 8. Use absorptive products on surfaces limit layers of linens on bed 9. Turn and reposition every 1-2 hours in bed and every 1 hour in chair as tolerated 10. Weight shifts every 15 minutes while up in chair 11. Offloading with pillows or device to keep heels elevated off bed 12. Monitor skin at least every shift 13. Inspect under medical devices twice a day WOUND TREATMENT RECOMMENDATIONS: CONSULT DR. BERMUDEZ FOR LEFT GROIN/LABIA ABSCESS. FULL THICKNESS GUIDELINES TO LEFT GROIN/LABIA: CLEANSE WITH NSS APPLY SUREPREP ALLOW TO DRY APPLY THERAHONEY AND COVER WITH OPTIFOAM GENTLE.
--- NOTE | 2019-03-14 13:17 | NUR ---
Dr. Montalvo notified of wound care recommendations.
[2019-03-14 15:09] LABS: ABG HCO3 12.5 mmol/l (22-26); ABG O2 SATURATION 94.2 % (95-97); ARTERIAL BLOOD GAS PCO2 35.8 mmHg (35-45); ARTERIAL BLOOD GAS PO2 79.9 mmHg (80-90)
[2019-03-14 15:11] LABS: ARTERIAL BLOOD GAS PH 7.162 (7.35-7.45)
[2019-03-14 15:28] LABS: CREATININE 2.24 mg/dL (0.55-1.02); POTASSIUM 2.8 mmol/L (3.5-5.1)
--- NOTE | 2019-03-14 17:36 | NUR ---
[facility] HERE TO TRANSPORT PT TO [facility].
--- NOTE | 2019-03-14 17:37 | NUR ---
I SPOKE WITH PT'S SONS AVELINO AND SHAWNA AND THEY ARE AWARE OF TRANSFER TO [facility].
--- NOTE | 2019-03-14 17:53 | NUR ---
DR BERMUDEZ CAME TO SEE THE PATIENT BUT THE PATIENT HAS ALREADY BEEN TRANSFERRED TO [facility]
--- NOTE | 2019-03-14 17:55 | NUR ---
REPORT GIVEN TO ADAMA AT [facility]. PT GOING TO E720 BED 1.
--- NOTE | 2019-03-21 11:34 | NUR ---
CHART ACCESSED FOR SENIOR REGULATORY AFFAIRS SPECIALIST SIDDHARTHA SPANN. CALL FROM FAMILY LOOKING FOR PTS BOTTOM DENTURES. DENTURES WERE NOT FOUND. SENIOR REGULATORY AFFAIRS SPECIALIST HAS BEEN MADE AWARE OF THIS.
== END 2019-03-14 17:37 | disposition short-term general hospital (02) | DRG 917 ==
LOC: ED 13:33 → ICCU 15:45 → EDHOLD 15:45 → ICCU 16:05
PROVIDERS: Emergency Medicine; Family Medicine; Internal Medicine Nephrology; Student in an Organized Health Care Education/Training Program; ADMIT Emergency Medicine
DX: T39.1X1A Poisoning by 4-Aminophenol derivatives, accidental (unintentional), initial encounter (principal); J96.01 Acute respiratory failure with hypoxia; N17.0 Acute kidney failure with tubular necrosis; E43 Unspecified severe protein-calorie malnutrition; J44.1 Chronic obstructive pulmonary disease with (acute) exacerbation; N76.4 Abscess of vulva; I50.42 Chronic combined systolic (congestive) and diastolic (congestive) heart failure; I82.512 Chronic embolism and thrombosis of left femoral vein; E87.2 Acidosis; N12 Tubulo-interstitial nephritis, not specified as acute or chronic; I95.2 Hypotension due to drugs; T40.601A Poisoning by unspecified narcotics, accidental (unintentional), initial encounter; K58.9 Irritable bowel syndrome, unspecified; F32.9 Major depressive disorder, single episode, unspecified; Z88.5 Allergy status to narcotic agent; G89.29 Other chronic pain; M54.9 Dorsalgia, unspecified; M54.2 Cervicalgia; F17.210 Nicotine dependence, cigarettes, uncomplicated; I44.7 Left bundle-branch block, unspecified; Z96.652 Presence of left artificial knee joint; Z96.641 Presence of right artificial hip joint; T40.2X2A Poisoning by other opioids, intentional self-harm, initial encounter; R00.0 Tachycardia, unspecified; R73.9 Hyperglycemia, unspecified; F41.1 Generalized anxiety disorder; M54.5 Low back pain; E55.9 Vitamin D deficiency, unspecified; E53.8 Deficiency of other specified B group vitamins; Z71.6 Tobacco abuse counseling; Z68.33 Body mass index [BMI] 33.0-33.9, adult; Z90.49 Acquired absence of other specified parts of digestive tract; Z98.84 Bariatric surgery status; Z90.710 Acquired absence of both cervix and uterus; Z83.3 Family history of diabetes mellitus; Z82.49 Family history of ischemic heart disease and other diseases of the circulatory system; Y92.89 Other specified places as the place of occurrence of the external cause; Z88.9 Allergy status to unspecified drugs, medicaments and biological substances

== ENCOUNTER 2019-04-11 03:40 | Inpatient (IN) | payer OTHER, MEDICAID ==
[~2019-04-11] VITALS: Ht 176.5 cm; Wt 88.9 kg
[2019-04-11 12:50] LABS: BASO % 0.7 % (0.0-1.0); EOS # 0.1 10*3/uL (0.0-0.4); EOS % 2.1 % (1.0-4.0); HEMATOCRIT 32.4 % (37.0-47.0); LYMPH # 1.5 10*3/uL (1.3-4.4); LYMPH % 27.2 % (27.0-41.0); MEAN CELL VOLUME 99.7 fl (81.0-99.0); MEAN CORPUSCULAR HGB 30.8 pg (27.0-31.0); MEAN CORPUSCULAR HGB CONC 30.9 g/dl (33.0-37.0); MEAN PLATELET VOLUME 10.3 fl (9.6-12.3); MONO # 0.8 10*3/uL (0.1-1.0); MONO % 13.7 % (3.0-9.0); NEUT # 3.1 10*3/uL (2.3-7.9); NEUT % 55.9 % (47.0-73.0); PLATELET COUNT AUTOMATED 293 10*3/uL (130-400); RED BLOOD COUNT 3.25 10*6/uL (4.10-5.10); RED CELL DISTRI WIDTH 15.3 % (0-14.5); WHITE BLOOD COUNT 5.6 10*3/uL (4.8-10.8)
[2019-04-11 14:11] LABS: BODY FLUID WBC 58550 /uL
[2019-04-11 14:24] LABS: BF LYMPHOCYTES 2 %; BF MONOCYTES 3 %; BF NEUTROPHILS 95 %
[2019-04-11 16:30] VITALS: BP 111/68
--- NOTE | 2019-04-11 16:30 | NUR ---
Time: 1629 A 57 year old FEMALE admitted to under services of [facility]. Pt. arrived via wheel chair from [place]. Chief complaint: SEPTIC RIGHT KNEE. AIRAM COVINGTON
--- NOTE | 2019-04-11 16:50 | NUR ---
DR. SHELBY IN TO SEE PT.
--- NOTE | 2019-04-11 17:00 | NUR ---
DR. MANCILLA ON FLOOR AWARE PT IN ROOM.
[2019-04-11] MEDS ORDERED: LATU60TA PO (17:10)
[2019-04-11] MEDS ORDERED: COREG3.125 MG PO (17:11)
[2019-04-11] MEDS ORDERED: NEURONTIN400 MG PO (17:11)
[2019-04-11] MEDS ORDERED: Duragesic 25 M25 MCG TD (17:11)
[2019-04-11] MEDS ORDERED: CYCLOBENZAPRINE10 MG PO ×2 (17:12→17:13)
[2019-04-11] MEDS ORDERED: FERROUS SULFAT325 MG PO (17:12)
[2019-04-11] MEDS ORDERED: ATARAX,VISTARIL50 MG PO (17:14)
[2019-04-11] MEDS ORDERED: B COMPLEX WITH1 EACH PO (17:18)
--- NOTE | 2019-04-11 18:19 | NUR ---
DR. MORRISON CALLED SHE WILL BE DOING SURGERY AT 730 IN AM. KEEP PT NPO AFTER MIDNIGHT.
--- NOTE | 2019-04-11 19:04 | NUR ---
CALLED DR. VIVAS MADE AWARE PT HOME MEDICATION NEED ORDERED STILL. ALSO PT NEEDS SOMETHING FOR PAIN AND DIET ORDER FOR TONIGHT.
[2019-04-11 20:00] VITALS: BP 97/67
--- NOTE | 2019-04-11 21:03 | NUR ---
PATIENT STATES SHE ALREADY TOOK HER COREG TODAY. REFUSED PM DOSE.
[2019-04-12] VITALS (12 sets, daily range): BP systolic 107–141; BP diastolic 58–87
--- NOTE | 2019-04-12 03:17 | NUR ---
PATIENT GIVEN TYLENOL FOR BREAKTHROUGH PAIN WITH SMALL SIP OF WATER. DILAUDID NOT DUE FOR NEXT HOUR.
--- NOTE | 2019-04-12 05:32 | NUR ---
patient received dilaudid for pain in right knee rated as 9/10.
[2019-04-12 05:48] LABS: BILIRUBIN NEGATIVE (NEGATIVE); BLOOD 1+ (NEGATIVE); CLARITY CLOUDY (CLEAR); COLOR YELLOW (YELLOW); GLUCOSE NEGATIVE (NEGATIVE); KETONE NEGATIVE (NEGATIVE); LEUKO ESTERASE 3+ (NEGATIVE); NITRITE NEGATIVE (NEGATIVE); PH 6.5 (5.0-9.0); SPECIFIC GRAVITY 1.015 (1.005-1.030); UROBILINOGEN 0.2 E.U./dl (0.2-1.0)
[2019-04-12 06:20] LABS: WBC TNTC wbc/hpf (0-5)
--- NOTE | 2019-04-12 07:00 | NUR ---
PT OFF FLOOR TO SURGERY AT THIS TIME.
[2019-04-12 07:56] LABS: BASO % 0.4 % (0.0-1.0); EOS # 0.2 10*3/uL (0.0-0.4); EOS % 3.3 % (1.0-4.0); HEMATOCRIT 26.9 % (37.0-47.0); HEMOGLOBIN 8.5 g/dl (12.0-16.0); LYMPH # 1.8 10*3/uL (1.3-4.4); LYMPH % 36.7 % (27.0-41.0); MEAN CELL VOLUME 99.6 fl (81.0-99.0); MEAN CORPUSCULAR HGB 31.5 pg (27.0-31.0); MEAN CORPUSCULAR HGB CONC 31.6 g/dl (33.0-37.0); MEAN PLATELET VOLUME 9.8 fl (9.6-12.3); MONO # 0.8 10*3/uL (0.1-1.0); MONO % 15.4 % (3.0-9.0); NEUT # 2.1 10*3/uL (2.3-7.9); NEUT % 43.6 % (47.0-73.0); PLATELET COUNT AUTOMATED 247 10*3/uL (130-400); RED CELL DISTRI WIDTH 15.5 % (0-14.5); WHITE BLOOD COUNT 4.9 10*3/uL (4.8-10.8)
[2019-04-12 08:26] LABS: ALBUMIN 2.5 gm/dl (3.1-4.5); ALKALINE PHOSPHATASE 121 U/L (45-117); BUN 20 mg/dl (7-24); CHLORIDE 112 mmol/L (98-107); CREATININE 0.92 mg/dL (0.55-1.02); POTASSIUM 2.9 mmol/L (3.5-5.1); SGOT/AST 5 IU/L (3-35); SGPT/ALT 7 U/L (12-78); SODIUM 140 mmol/L (136-145); TOTAL PROTEIN 6.2 gm/dL (6.4-8.2)
[2019-04-12 08:39] LABS: ACT PARTIAL THROMBO TIME 37.1 SECONDS (20.0-32.1); VITAMIN D, 25-HYDROXY 20.2 ng/mL (30-100)
--- NOTE | 2019-04-12 10:20 | NUR ---
PT RETURNED FROM SURGERY AT THIS TIME, VITALS WNL.
--- NOTE | 2019-04-12 10:40 | NUR ---
MEDICATED WITH DILAUDID PER PRN ORDER FOR COMPLAINTS OF RIGHT KNEE PAIN. WILL MONITOR FOR EFFECTIVENESS.
--- NOTE | 2019-04-12 11:56 | NUR ---
FENTANYL PATCH REMOVED FROM PT'S RIGHT UPPER BACK & WASTED. NEW PATCH APPLIED TO LEFT UPPER BACK.
--- NOTE | 2019-04-12 12:49 | NUR ---
Visual Designer in to talk to patient. Patient states lives at home with boyfriend. There are 6 steps in the home. Physician: Pharmacy: [facility] Home health services: [facility] nursing, pt,ot Patient's level of ADLs: MODERATE ASSIST Patient has working utilities: all working DME: walker Follow-up physician's appointment after d/c: will be made by hospitalist nurse director upon discharge Does patient want to access PORTAL?: no Discharge plan discussed with patient, she states she lives at home with boyfriend, she uses a walker for ambulation and is independent in adls, she currently has [facility], nursing, physical therapy and occupational therapy. discussed with her a discharge plan including a short term senior living and she declined, stated she would be returning home and would like to resume her home health . case management will send an order to [facility] for when patient is medically stable for discharge,. NAUN ODEN
--- NOTE | 2019-04-12 14:00 | NUR ---
MEDICATED WITH DILAUDID AND FLEXERIL FOR COMPLAINTS OF RIGHT LEG/KNEE PAIN. WILL MONITOR FOR EFFECTIVENESS.
--- NOTE | 2019-04-12 14:40 | NUR ---
ENCOURAGED PT TO GET UP OUT OF BED AND INTO CHAIR. STATES SHE WANTS TO NAP AT THIS TIME. EXPLAINED IMPORTANCE.
--- NOTE | 2019-04-12 15:00 | NUR ---
PT RESTING, NO DISTRESS NOTED. EARLIER DILAUDID APPEARS EFFECTIVE.
--- NOTE | 2019-04-12 15:53 | NUR ---
PHYSICAL THERAPY Nursing screen received and chart reviewed. Physical therapy referral received. Thank you. Carla Almendarez,PT,DPT
--- NOTE | 2019-04-12 18:14 | NUR ---
MEDICATED WITH DILAUDID PER PRN ORDER FOR COMPLAINTS OF RIGHT KNEE PAIN. WILL MONITOR.
--- NOTE | 2019-04-12 18:30 | NUR ---
PT ASSISTED UP IN CHAIR FOR DINNER.
--- NOTE | 2019-04-12 22:04 | NUR ---
PATIENT RECEIVED DILAUDID IN RIGHT LEG 03/29.
[2019-04-13] VITALS: BP 110/67
--- NOTE | 2019-04-13 02:40 | NUR ---
PATIENT RECEIVED DILAUDID FOR PAIN RATED 8/10 IN LEG.
[2019-04-13 06:18] LABS: HEMATOCRIT 26.2 % (37.0-47.0); HEMOGLOBIN 8.3 g/dl (12.0-16.0); MEAN CELL VOLUME 98.5 fl (81.0-99.0); MEAN CORPUSCULAR HGB 31.2 pg (27.0-31.0); MEAN CORPUSCULAR HGB CONC 31.7 g/dl (33.0-37.0); MEAN PLATELET VOLUME 10.1 fl (9.6-12.3); PLATELET COUNT AUTOMATED 238 10*3/uL (130-400); RED BLOOD COUNT 2.66 10*6/uL (4.10-5.10); RED CELL DISTRI WIDTH 15.5 % (0-14.5); WHITE BLOOD COUNT 5.3 10*3/uL (4.8-10.8)
--- NOTE | 2019-04-13 06:19 | NUR ---
PATIENT RECEIVED TYLENOL FOR BREAK THROUGH PAIN OF 6/10.
[2019-04-13 06:26] LABS: BUN 18 mg/dl (7-24); CHLORIDE 115 mmol/L (98-107); CREATININE 0.91 mg/dL (0.55-1.02); POTASSIUM 2.7 mmol/L (3.5-5.1); SODIUM 143 mmol/L (136-145)
--- NOTE | 2019-04-13 06:40 | NUR ---
DR WALLS NOTIFIED OF CRITICAL VANC TROUGH.
[2019-04-13 07:53] LABS: BASOPHILS 1 % (0-1); TOTAL CELLS COUNTED 100 #CELLS
[2019-04-13 07:54] LABS: PLATELET SUFFICIENCY NORMAL (NORMAL)
[2019-04-13 08:00] VITALS: BP 118/72
--- NOTE | 2019-04-13 08:00 | NUR ---
DR VIVAS MADE AWARE OF POTASSIUM RESULT OF 2.7. ORDERS RECEIVED.
--- NOTE | 2019-04-13 09:00 | NUR ---
case management visits with patient, she states she will return home when medically stable and resume [facility], case management will contact [facility] when patient is medically stable for discharge
--- NOTE | 2019-04-13 11:12 | NUR ---
Occupational therapy orders received and chart reviewed. Patient regusing at this time due to increased pain in her R LE. Patient requested for us to ask nursing for pain pill, patient request was completed. Will follow up with patient as appropriate. Thank you. Fanny Blank, OTR/L
--- NOTE | 2019-04-13 11:21 | NUR ---
PHYSICAL THERAPY Physical therapy evaluation attempted. Patient refused because she wants her pain medication first. PT will attempt skilled PT evaluation at a later time/date. Thank you, Alanis Moore, SPT Carla Almendarez,PT,DPT
--- NOTE | 2019-04-13 11:31 | NUR ---
MEDICATED WITH PERCOCET PER PRN ORDER FOR COMPLAINTS OF RIGHT KNEE PAIN, RATES PAIN 9/10. WILL MONITOR FOR EFFECTIVENESS.
--- NOTE | 2019-04-13 13:00 | NUR ---
PT RESTING IN BED SLEEPING AT THIS TIME, EARLIER PEROCET APPEARS EFFECTIVE FOR PAIN RELIEF.
--- NOTE | 2019-04-13 14:08 | NUR ---
PHYSICAL THERAPY Physical therapy evaluation completed. Full details and evaluation to follow. Low complexity skilled PT evaluation performed ([id number]). PT will work on strength, transfers, gait, and safety per POC. Recommend home with home health upon discharge. Thank you, Alanis Moore,SPT Carla Almendarez,PT,DPT
--- NOTE | 2019-04-13 14:09 | NUR ---
Occupational therapy orders received and OT eval and POC completed in full on floor four. Patient precautions include fall risk, WBAT R LE, and ww use. Per OT eval, OT recommends patient d/c to SNF. If refused, patient would benefit from home health SN, OT, and PT. Patient would benefit from continued OT treatment to maximize independence in ADLs. Patient complexity is low, [id number]. Thank you for the referral. Fanny Blank, OTR/L
--- NOTE | 2019-04-13 15:29 | NUR ---
PT COMPLAINTS OF 8/10 PAIN, EXPLAINED TO PT MED REGIMEN AND PERCOCET IS NOT YET AVAILABLE AND I CAN PROVIDE HER TYLENOL AT THIS TIME, TYLENOL GIVEN. DR VIVAS PRESENT AT THIS TIME, PICC LINE CONSENT OBTAINED.
[2019-04-13 16:00] VITALS: BP 114/62
--- NOTE | 2019-04-13 17:05 | NUR ---
MEDICATED WITH PERCOCET AND FLEXERIL FOR COMPLAINTS OF RIGHT KNEE AND LEG PAIN, WILL MONITOR FOR EFFECTIVENESS.
--- NOTE | 2019-04-13 18:01 | NUR ---
VANC TROUGH CRITICALLY HIGH AT 23.5, PHARMACY UPDATED.
--- NOTE | 2019-04-13 19:20 | NUR ---
BEDSIDE REPORT RECEIVED FROM DAYLIGHT NURSE. PT IS SLEEPING AT THIS TIME. PT RESPIRATIONS ARE EASY AND UNLABORED. NO DISTRESS NOTED. PT CALL LIGHT IN REACH.
[2019-04-13 22:02] VITALS: BP 110/70
[2019-04-14] VITALS: BP 101/61
--- NOTE | 2019-04-14 01:00 | NUR ---
PT ASLEEP AT THIS TIME. CALL LIGHT IN REACH.
--- NOTE | 2019-04-14 02:57 | NUR ---
TYLENOL GIVEN PER ORDER FOR COMPLAINT OF 5/10 PAIN IN RIGHT KNEE. WILL CONTINUE TO MONITOR AND REASSESS.
--- NOTE | 2019-04-14 03:00 | NUR ---
PT SLEEPING AT THIS TIME. NO DISTRESS NOTED. CALL LIGHT IN REACH.
--- NOTE | 2019-04-14 04:00 | NUR ---
TYLENOL INEFFECTIVE FOR PAIN PER PT.
--- NOTE | 2019-04-14 04:15 | NUR ---
PT REQUESTING PAIN MEDICATION AT THIS TIME. BP IS 104/70. ALERT AND CALM.
--- NOTE | 2019-04-14 04:31 | NUR ---
PT SLEEPING AT THIS TIME. PERCOCET GIVEN PER REQUEST FOR 10/10 R KNEE PAIN. WILL ASSESS EFFECTIVENESS.
[2019-04-14 06:49] LABS: BASO % 0.8 % (0.0-1.0); EOS # 0.3 10*3/uL (0.0-0.4); EOS % 5.2 % (1.0-4.0); HEMOGLOBIN 8.4 g/dl (12.0-16.0); LYMPH # 2.3 10*3/uL (1.3-4.4); LYMPH % 44.6 % (27.0-41.0); MEAN CELL VOLUME 99.6 fl (81.0-99.0); MEAN CORPUSCULAR HGB CONC 31.1 g/dl (33.0-37.0); MEAN PLATELET VOLUME 10.3 fl (9.6-12.3); MONO # 0.8 10*3/uL (0.1-1.0); MONO % 15.1 % (3.0-9.0); NEUT # 1.8 10*3/uL (2.3-7.9); NEUT % 33.9 % (47.0-73.0); PLATELET COUNT AUTOMATED 242 10*3/uL (130-400); RED BLOOD COUNT 2.71 10*6/uL (4.10-5.10); RED CELL DISTRI WIDTH 15.8 % (0-14.5); WHITE BLOOD COUNT 5.2 10*3/uL (4.8-10.8)
[2019-04-14 07:00] LABS: BUN 18 mg/dl (7-24); CHLORIDE 115 mmol/L (98-107); CREATININE 0.73 mg/dL (0.55-1.02); POTASSIUM 3.6 mmol/L (3.5-5.1); SODIUM 142 mmol/L (136-145)
[2019-04-14 08:00] VITALS: BP 117/68
--- NOTE | 2019-04-14 08:35 | NUR ---
PHYSICAL THERAPY Patient is eating breakfast at this time. Will check back later. GEOVANNI LUCERO GROCERY STORE MANAGER
--- NOTE | 2019-04-14 08:39 | NUR ---
OT NOTE Attempted to see pt this A.M. for OT session and upon arrival pt was eating her breakfast. Will check back at a later time/date and continue with POC as indicated. HEATHER Del Rosario/Marcella
--- NOTE | 2019-04-14 08:59 | NUR ---
DR MANCILLA IN TO SEE PT. PT FOR POSSIBLE DISCHARGE TODAY AFTER PICC LINE INSERTED BY INTERVENTIONAL RADIOLOGIST. PT'S RIGHT KNEE REMAINS WRAPPED. NO DRAINAGE NOTED AT THIS TIME.
--- NOTE | 2019-04-14 09:00 | NUR ---
case management visits with patient, discussed with her administering home iv antibiotics, patient stated she administered these previously and would also have help from her family, she will also have [facility], case management spoke to Ruth from [facility] in [place] regarding cost of iv medications, Ruth stated she is waiting for patient's insurance benefits and will contact case management when this is received
[2019-04-14] MEDS ORDERED: KEFLEX500 M1 PO (10:14)
[2019-04-14] MEDS ORDERED: DAPTOMYCIN350 MG IV (10:16)
--- NOTE | 2019-04-14 10:45 | NUR ---
MEDICATED PT PER PRN ORDER WITH PERCOCET FOR C/O RIGHT KNEE PAIN THAT RATES 8/10 ON PAIN SCALE.
--- NOTE | 2019-04-14 11:31 | NUR ---
PHYSICAL THERAPY Patient was taken to surgery for procedure at this time. Will check back with patient this afternoon. GEOVANNI LUCERO DIRECTOR COUNCIL ON AGING
--- NOTE | 2019-04-14 11:40 | NUR ---
PT STATES RELIEF OF KNEE PAIN WITH EARLIER PERCOCET.
--- NOTE | 2019-04-14 11:40 | NUR ---
OT NOTE Second attempt made to see pt this A.M. for OT session and upon arrival pt was out of the room for surgery. Will check back at a later time/date and continue with POC as able. HEATHER Del Rosario/Marcella
--- NOTE | 2019-04-14 11:41 | NUR ---
case management faxed patient's inforamtion to [facility] to resume home health services and informed them patient would also have iv antibiotics that treatment would need to be initiated tomorrow, case management will follow
--- NOTE | 2019-04-14 11:46 | NUR ---
PT WENT FOR HER PICC LINE INSERTION.
--- NOTE | 2019-04-14 12:22 | NUR ---
case management received a call from ruth from [employer], patient [place] have a $0 copay for iv antibiotics, Ruth will talk with [facility] and coordinate when iv antibiotics will be administered
[2019-04-14] MEDS ORDERED: VITAMIN D32000 UNI1 PO (12:31)
[2019-04-14] MEDS ORDERED: PERCOCET 7.5-31 EACH PO (12:31)
--- NOTE | 2019-04-14 15:46 | NUR ---
FLU AND PNEUMOVAC GIVEN TO PT PER ORDER AND HER REQUEST.
--- NOTE | 2019-04-14 15:50 | NUR ---
Discharge instructions reviewed with patient. Patient receptive and verbalizes understanding. Follow-up care arranged. Written instructions given to patient. No reaction to vaccines noted at this time. MINA CANNON
--- NOTE | 2019-04-15 07:40 | NUR ---
OT CO-SIGN I APPROVE OF THE NOTES WRITTEN ABOVE. THANK YOU. FRED COOPER, OTR/L
--- NOTE | 2019-04-15 07:45 | NUR ---
PHYSICAL THERAPY CO-SIGN I approve of the Physical Therapy notes written above. DEMARCUS BARTHOLOMEW PT,DPT
== END 2019-04-14 16:06 | disposition home health service (06) | DRG 485 ==
LOC: ORTHO 03:40 → EDSTATUS 16:13 → 4E 16:14 → ORTHO 17:58 → 4E 04-14 16:06
PROVIDERS: Family Medicine; Orthopaedic Surgery; Student in an Organized Health Care Education/Training Program; ADMIT Internal Medicine
PROC: 0SCC4ZZ Extirpation of Matter from Right Knee Joint, Percutaneous Endoscopic Approach (ICD-10-PCS; principal; 2019-04-12)
PROC: 0SBC4ZZ Excision of Right Knee Joint, Percutaneous Endoscopic Approach (ICD-10-PCS; principal; 2019-04-12)
PROC: B5181ZA Fluoroscopy of Superior Vena Cava using Low Osmolar Contrast, Guidance (ICD-10-PCS; 2019-04-14)
PROC: 02HV33Z Insertion of Infusion Device into Superior Vena Cava, Percutaneous Approach (ICD-10-PCS; 2019-04-14)
DX: M00.061 Staphylococcal arthritis, right knee (principal); E43 Unspecified severe protein-calorie malnutrition; I50.42 Chronic combined systolic (congestive) and diastolic (congestive) heart failure; J44.9 Chronic obstructive pulmonary disease, unspecified; K58.2 Mixed irritable bowel syndrome; F41.8 Other specified anxiety disorders; M23.41 Loose body in knee, right knee; E53.8 Deficiency of other specified B group vitamins; D53.9 Nutritional anemia, unspecified; E55.9 Vitamin D deficiency, unspecified; E87.6 Hypokalemia; Z96.652 Presence of left artificial knee joint; M94.261 Chondromalacia, right knee; B95.62 Methicillin resistant Staphylococcus aureus infection as the cause of diseases classified elsewhere; B96.4 Proteus (mirabilis) (morganii) as the cause of diseases classified elsewhere; M65.861 Other synovitis and tenosynovitis, right lower leg; N30.90 Cystitis, unspecified without hematuria; Z96.641 Presence of right artificial hip joint; Z22.322 Carrier or suspected carrier of Methicillin resistant Staphylococcus aureus; Z86.718 Personal history of other venous thrombosis and embolism; Z68.28 Body mass index [BMI] 28.0-28.9, adult; Z86.14 Personal history of Methicillin resistant Staphylococcus aureus infection; Z98.84 Bariatric surgery status; Z90.710 Acquired absence of both cervix and uterus; Z90.79 Acquired absence of other genital organ(s); Z90.722 Acquired absence of ovaries, bilateral; Z79.01 Long term (current) use of anticoagulants; Z79.899 Other long term (current) drug therapy; Z88.8 Allergy status to other drugs, medicaments and biological substances; Z82.49 Family history of ischemic heart disease and other diseases of the circulatory system; Z81.8 Family history of other mental and behavioral disorders

== ENCOUNTER 2019-08-18 12:26 | Inpatient (IN) | payer OTHER, MEDICAID ==
[~2019-08-18] VITALS: Ht 175.2 cm; Wt 93.6 kg
[~2019-08-18 12:26] MED LIST changes: +ATARAX,VISTARIL50 MG PO; +B COMPLEX WITH1 EACH PO; +DAPTOMYCIN350 MG IV; +Duragesic 25 M25 MCG TD; +FERROUS SULFAT325 MG PO; +LATU60TA PO; +NEURONTIN400 MG PO; +VITAMIN D32000 UNI1 PO
[2019-08-18 12:35] VITALS: BP 123/80
[2019-08-18 14:31] LABS: BASO % 0.2 % (0.0-1.0); HEMATOCRIT 37.8 % (37.0-47.0); HEMOGLOBIN 12.1 g/dl (12.0-16.0); LYMPH % 12.5 % (27.0-41.0); MEAN CELL VOLUME 96.7 fl (81.0-99.0); MEAN CORPUSCULAR HGB 30.9 pg (27.0-31.0); MEAN PLATELET VOLUME 10.6 fl (9.6-12.3); MONO # 1.1 10*3/uL (0.1-1.0); MONO % 6.7 % (3.0-9.0); NEUT # 12.8 10*3/uL (2.3-7.9); PLATELET COUNT AUTOMATED 240 10*3/uL (130-400); RED BLOOD COUNT 3.91 10*6/uL (4.10-5.10); RED CELL DISTRI WIDTH 18.7 % (0-14.5)
[2019-08-18 14:46] LABS: ACT PARTIAL THROMBO TIME 28.9 SECONDS (20.0-32.1)
[2019-08-18 14:52] LABS: ALBUMIN 2.2 gm/dl (3.1-4.5); ALKALINE PHOSPHATASE 292 U/L (45-117); BUN 15 mg/dl (7-24); CHLORIDE 116 mmol/L (98-107); CREATININE 1.14 mg/dL (0.55-1.02); POTASSIUM 2.9 mmol/L (3.5-5.1); SGOT/AST 31 IU/L (3-35); SGPT/ALT 45 U/L (12-78); SODIUM 142 mmol/L (136-145); TOTAL PROTEIN 5.9 gm/dL (6.4-8.2)
[2019-08-18 14:54] LABS: TROPONIN I < 0.015 ng/ml (<0.045)
[2019-08-18 15:14] VITALS: BP 105/74
--- NOTE | 2019-08-18 15:18 | NUR ---
PT RESTING COMFORTABLY WITH CALL LIGHT WITHIN REACH
[2019-08-18 17:30] VITALS: BP 90/73
--- NOTE | 2019-08-18 17:30 | NUR ---
A 58, admitted to ICCU, under the services of LARON Vergara DO with a diagnosis of SEPSIS. Chief complaint is FATIGUE AND SOB WITH EXERTION. Patient arrived via ambulance from ER. Monitor applied. Initial assessment completed. Vital signs taken and recorded. LARON VERGARA DO notified of admission to the unit. Orders received. See assessment for past medical history, medications and allergies. Patient and/or family oriented to unit. [facility] visitation policy reviewed. Clothing/patient valuable form completed. KUSHAL ODEN
[2019-08-18] MEDS ORDERED: INCRUSE ELLI62.5 MCG INH (17:50)
[2019-08-18] MEDS ORDERED: ZINC OXIDE OINT1 OZ T (17:51)
[2019-08-18] MEDS ORDERED: TRINTELLIX10 MG PO (17:52)
[2019-08-18] MEDS ORDERED: ADDERALL 10 MG10 MG PO (17:53)
[2019-08-18] MEDS ORDERED: NEURONTIN400 MG PO (17:58)
[2019-08-18] MEDS ORDERED: IBU800 M1 PO (17:58)
[2019-08-18] MEDS ORDERED: DOXYCYCLINE100 M3 PO (18:00)
[2019-08-18] MEDS ORDERED: POTASSIUM CHLO20 ME3 PO (18:01)
[2019-08-18] MEDS ORDERED: PERCOCET 5-3251 EACH PO (18:02)
[2019-08-18] MEDS ORDERED: DURAGESIC1 EAC2 T (18:03)
[2019-08-18] MEDS ORDERED: ZOFRAN4 MG PO (18:04)
[2019-08-18] MEDS ORDERED: XARELTO20 M1 PO (18:04)
[2019-08-18] MEDS ORDERED: VITAMIN D35000 UNIT PO (18:11)
--- NOTE | 2019-08-18 18:30 | NUR ---
RESIDENT AWARE OF NEED FOR WOUND CARE ORDERS
--- NOTE | 2019-08-18 18:36 | NUR ---
DR GRANADOS NOTIFIED OF CONSULT
[2019-08-18 18:52] VITALS: BP 99/61
--- NOTE | 2019-08-18 18:53 | NUR ---
HR RATE TO 140-150 PT CAN "FEEL" HER HEART RACING STAT EKG ORDERED
[2019-08-18 20:00] VITALS: BP 104/67
[2019-08-18 20:36] LABS: CREATININE 1.16 mg/dL (0.55-1.02); POTASSIUM 3.6 mmol/L (3.5-5.1)
--- NOTE | 2019-08-18 20:53 | NUR ---
DR RAZA NOTIFIED OF CONSULT. NO NEW ORDERS AND STATED WILL SEE PT TOMORROW.
[2019-08-19] VITALS: BP 105/61
[2019-08-19 04:00] VITALS: BP 92/59
[2019-08-19 05:33] LABS: ALBUMIN 1.6 gm/dl (3.1-4.5); ALKALINE PHOSPHATASE 234 U/L (45-117); BUN 16 mg/dl (7-24); CHLORIDE 119 mmol/L (98-107); CREATININE 0.98 mg/dL (0.55-1.02); SGOT/AST 21 IU/L (3-35); SGPT/ALT 31 U/L (12-78); SODIUM 146 mmol/L (136-145); TOTAL PROTEIN 4.7 gm/dL (6.4-8.2)
[2019-08-19 05:42] LABS: POTASSIUM 3.6 mmol/L (3.5-5.1)
[2019-08-19 05:59] LABS: BASO % 0.1 % (0.0-1.0); HEMATOCRIT 30.4 % (37.0-47.0); HEMOGLOBIN 9.5 g/dl (12.0-16.0); MEAN CELL VOLUME 98.7 fl (81.0-99.0); MEAN CORPUSCULAR HGB 30.8 pg (27.0-31.0); MEAN CORPUSCULAR HGB CONC 31.3 g/dl (33.0-37.0); MEAN PLATELET VOLUME 11.7 fl (9.6-12.3); MONO # 0.6 10*3/uL (0.1-1.0); MONO % 4.2 % (3.0-9.0); NEUT # 11.9 10*3/uL (2.3-7.9); NEUT % 88.1 % (47.0-73.0); PLATELET COUNT AUTOMATED 171 10*3/uL (130-400); RED BLOOD COUNT 3.08 10*6/uL (4.10-5.10); RED CELL DISTRI WIDTH 18.6 % (0-14.5); WHITE BLOOD COUNT 13.5 10*3/uL (4.8-10.8)
--- NOTE | 2019-08-19 06:57 | NUR ---
HARVEY NGUYỄN [id number] Please refer to the physician's history and physical for past medical history, comorbid conditions, and allergies. Diagnosis: SEVERE SEPSIS PAROXYSMAL ATRIAL FIBRILLATION Mike Score: 20,LOW OR NO RISK WOUND DESCRIPTIONS: Wound Number: 1 Location of the wound: Left breast Thickness: Full Size: 2.0cm x 1.7cm x 0.4cm Tunneling: none Undermining: none Sinus Tract: none Presence of Exudate: Serosanguineous Amount: Light Color: Red, yellow Odor: None Periwound Skin Appearance: Erythema Wound edges: approximated Pain (associated with wound): none at time of assessment How does patient state this happened? pt stated that she had surgery about 10 years ago and has open and closed last couple years it has been more frequent Wound Number: 2 Location of the wound: right lateral breast right side Thickness: Full Size: 0.4cm x 0.5cm x 0.1cm Tunneling: none Undermining: none Sinus Tract: none Presence of Exudate: Serous Amount: Light Color: Red, yellow Odor: None Periwound Skin Appearance: Scar Wound edges: approximated Pain (associated with wound): none at time of assessment How does patient state this happened? pt stated this happened 10 years ago and it opens and closes and she said this just reopened about 3 month ago. she states she has had a history of mrsa in her leg Wound Number: 3 Location of the wound: right medial breast middle wound Thickness: Full Size: 0.5cm x 2.3cmcm x 0.1cm Tunneling: none Undermining: none Sinus Tract: none Presence of Exudate: Serous Amount: Light Color: Red, yellow Odor: None Periwound Skin Appearance: Scar Wound edges: approximated Pain (associated with wound): none at time of assessment How does patient state this happened? pt stated this happened 10 years ago and it opens and closes and she said this just reopened about 3 month ago. she states she has had a history of mrsa in her leg Wound Number: 4 Location of the wound: right medial breast towards sternum left wound Thickness: Partial Size: 0.5cm x 2.3cm x 0.1cm Tunneling: none Undermining: none Sinus Tract: none Presence of Exudate: Serous Amount: Light Color: Red Odor: None Periwound Skin Appearance: Scar Wound edges: approximated Pain (associated with wound): none at time of assessment How does patient state this happened? pt stated this happened 10 years ago and it opens and closes and she said this just reopened about 3 month ago. she states she has had a history of mrsa in her leg Surface the patient is resting on: Isoflex SKIN PREVENTION RECOMMENDATION: 1. Pressure redistribution support surface as appropriate 2. Elevate heels 3. Remove boots/TEDS every shift and reapply 4. Head of bed 30 degrees as tolerated 5. Assess nutrition and hydration 6. Manage moisture 7. Avoid the use of containment devices while in bed 8. Use absorptive products on surfaces limit layers of linens on bed 9. Turn and reposition every 1-2 hours in bed and every 1 hour in chair as tolerated 10. Weight shifts every 15 minutes while up in chair 11. Offloading with pillows or device to keep heels elevated off bed 12. Monitor skin at least every shift 13. Inspect under medical devices twice a day WOUND TREATMENT RECOMMENDATIONS: Culture right and left breast due to non-healing wounds. Full thickness guidelines: Cleanse right and left breast with nss and apply sureprep around the wound therahoney to wound bed and cover with optifoam gentle. Partial thickness guidelines: Cleanse right breasat with nss and apply sureprep around the wound therahoney to wound bed and cover with optifoam gentle. Patient states she will make follow up appointment upon discharge if she wants to follow in the wound care center.
[2019-08-19 07:15] LABS: VITAMIN D, 25-HYDROXY 25.6 ng/mL (30-100)
--- NOTE | 2019-08-19 07:46 | NUR ---
Dr. Greco notified of wound care recommendations.
[2019-08-19 08:00] VITALS: BP 103/65
[2019-08-19 10:31] LABS: ABG BASE EXCESS -11.6 mmol/L (-2.0-2.0); ARTERIAL BLOOD GAS PH 7.33 (7.35-7.45)
[2019-08-19 12:00] VITALS: BP 100/54
--- NOTE | 2019-08-19 12:17 | NUR ---
PHYSICAL THERAPY Screen received pt admit from home with chest pain, sepsi, SOB with pneumonitis. Please consult PT if pt's functional status declines from baseline, thank you Krupa Bui PT
--- NOTE | 2019-08-19 12:48 | NUR ---
Aviation Ordnance Officer in to see patient. She is currently have an echo performed at bedside. Will follow up at a later time.
--- NOTE | 2019-08-19 13:26 | NUR ---
[facility] HERE, REVIEWED ALL STRIPS AND EKGS-PT MOST LIKELY IN A ST WITH PACS DURING PERIODS OF ELEVATED HEART RATE, ORDERS RECIEVED
--- NOTE | 2019-08-19 13:36 | NUR ---
Sales Operations Director in to talk to patient. Patient states lives at home alone with her daughter checking in on her multiple times a day There are 6 steps outside the home. Physician: Dr. Chase Orellana Pharmacy: [facility] Home health services: [facility] Patient's level of ADLs: MODERATE ASSIST Patient has working utilities: yes DME: walker, crutch, O2 prn, portable O2 tanks, nebulizer, O2 supplier unknown Follow-up physician's appointment after d/c: will be made by the hospitalist nurse director upon discharge Does patient want to access PORTAL?: no Discharge plan discussed with patient. She lives at home alone with her daughter checking in on her. She is independent in her ADLs and has been using a crutch to get around. She does have a walker at home and believes she will start using it. Discussed home health care services and she currently has OV and would like to resume those services upon discharge. When medically stable she will be discharged to home with the resumption of her home health care services. She states her daughter will provide transportation on discharge. DEMARCUS STARK
[2019-08-19 15:57] LABS: BILIRUBIN NEGATIVE (NEGATIVE); BLOOD NEGATIVE (NEGATIVE); CLARITY SL CLOUDY (CLEAR); COLOR YELLOW (YELLOW); GLUCOSE NEGATIVE (NEGATIVE); KETONE NEGATIVE (NEGATIVE); LEUKO ESTERASE NEGATIVE (NEGATIVE); NITRITE NEGATIVE (NEGATIVE); SPECIFIC GRAVITY 1.025 (1.005-1.030); UROBILINOGEN 0.2 E.U./dl (0.2-1.0)
[2019-08-19 15:58] LABS: BACTERIA 3+; EPITHELIAL CELLS 31-40; WBC 16-20 wbc/hpf (0-5)
[2019-08-19 16:00] VITALS: BP 114/76
--- NOTE | 2019-08-19 16:07 | NUR ---
Nursing screen received and chart reveiw completed. Patient is a 58 yr old lady who used a crutch to ambulate and is independent in all ADLs prior to admission w / chest pain. If patient should have a decline in ADLs then refer to OT. Thank you. Sherry May OTr/l
--- NOTE | 2019-08-19 18:37 | NUR ---
TRANSFERRED TO [facility]
--- NOTE | 2019-08-19 18:40 | NUR ---
PERCOCET FOR GENERALIZED BODY PAIN HAS BEEN EFFECTIVE
--- NOTE | 2019-08-19 19:30 | NUR ---
PT RESTING IN BED. VOICES NO CONCERNS AT THIS TIME. RESPS EASY AND NON LABORED. NO S/S OF DISTRESS NOTED. VSS. WHITE BOARD UPDATED. CALL LIGHT WITHIN REACH. FAMILY UPDATED PER PT REQUEST.
[2019-08-19 20:00] VITALS: BP 124/65
--- NOTE | 2019-08-19 20:40 | NUR ---
PT YELLING C/O BEING SHORT OF BREATH AND FOUND TO BE HYPERVENTILATING AND APPEARING VERY ANXIOUS. VITALS OBTAINED. RELAXATION/BREATHING TECHNIQUES WERE INSTRUCTED. SPO2 WAS 84% ON ROOM AIR. PT WAS PLACED ON 3L OXYGEN VIA NASAL CANNULA AND RESPIRATORY WAS NOTIFIED. DR PEDRAZA MADE AWARE. STATED TO CONTINUE TO MONITOR.
--- NOTE | 2019-08-19 21:40 | NUR ---
PT RESTING COMFORTABLY IN BED SLEEPING. NO S/S OF DISTRESS NOTED. RESPS EASY AND NON LABORED. VSS. 3L OXYGEN VIA NASAL CANNULA INTACT. CALL LIGHT WITHIN REACH.
--- NOTE | 2019-08-19 23:10 | NUR ---
24 HR chart check completed.
--- NOTE | 2019-08-19 23:42 | NUR ---
PT COMPLAINS OF 8/10 ACHING BACK PAIN. MEDICATED PER ORDER. WILL MONITOR FOR RELIEF. VOICES NO OTHER CONCERNS AT THIS TIME. RESTING IN BED. RESPS EASY AND NON LABORED. CALL LIGHT WITHIN REACH. VSS.
[2019-08-20] VITALS: BP 106/72; BP 84/48
--- NOTE | 2019-08-20 00:42 | NUR ---
PERCOCET EFFECTIVE. PT SLEEPING. RESPS EASY AND NON LABORED. NO S/S OF DISTRESS NOTED. 3L OXYGEN VIA NASAL CANNULA INTACT. CALL LIGHT WITHIN REACH.
--- NOTE | 2019-08-20 06:16 | NUR ---
PT C/O 02/26 CHRONIC BACK PAIN. MEDICATED PER ORDER. WILL MONITOR FOR RELIEF. ALSO STATES HER MOUTH IS HURTING HER AND FEELS LIKE IT IS BLISTERED. TINY WHITE DOTS NOTED ON THE INSIDE OF PTS MOUTH AROUND CHEEK AREA. NO OPEN AREAS SEEN. WILL PASS ALONG. CALL LIGHT WITHIN REACH.
[2019-08-20 06:22] LABS: HEMATOCRIT 28.6 % (37.0-47.0); MEAN CELL VOLUME 97.6 fl (81.0-99.0); MEAN CORPUSCULAR HGB 30.7 pg (27.0-31.0); MEAN CORPUSCULAR HGB CONC 31.5 g/dl (33.0-37.0); MEAN PLATELET VOLUME 11.3 fl (9.6-12.3); PLATELET COUNT AUTOMATED 148 10*3/uL (130-400); RED BLOOD COUNT 2.93 10*6/uL (4.10-5.10); RED CELL DISTRI WIDTH 18.1 % (0-14.5); WHITE BLOOD COUNT 19.6 10*3/uL (4.8-10.8)
[2019-08-20 06:40] LABS: ALBUMIN 1.5 gm/dl (3.1-4.5); ALKALINE PHOSPHATASE 222 U/L (45-117); BUN 18 mg/dl (7-24); CHLORIDE 119 mmol/L (98-107); CREATININE 0.76 mg/dL (0.55-1.02); PHOSPHOROUS 2.3 mg/dL (2.5-4.9); POTASSIUM 3.5 mmol/L (3.5-5.1); SGOT/AST 20 IU/L (3-35); SGPT/ALT 25 U/L (12-78); SODIUM 144 mmol/L (136-145); TOTAL PROTEIN 4.4 gm/dL (6.4-8.2)
[2019-08-20 07:15] LABS: TOTAL CELLS COUNTED 100 #CELLS
[2019-08-20 07:16] LABS: BURR CELLS FEW; OVALOCYTES FEW; PLATELET SUFFICIENCY NORMAL (NORMAL); POLYCHROMASIA SLIGHT; SCHISTOCYTES FEW; TARGET CELLS FEW
[2019-08-20 08:00] VITALS: BP 116/66
--- NOTE | 2019-08-20 09:00 | NUR ---
NOTIFIED OF CONCERNS FOR THRUSH AND WHITE PATCHES ON GUMS AND [employer]ES
--- NOTE | 2019-08-20 11:45 | NUR ---
NEW IV STARTED IN RIGHT UPPER ARM, 20GAGE ACCUCATH UNDER ULTRASOUND GUIDANCE. ON FIRST ATTEMPT, PT TOLERATED WELL, IV IN LEFT UPPER ARM REMOVED D/T INFILTRATION
[2019-08-20 12:00] VITALS: BP 109/64
[2019-08-20 16:00] VITALS: BP 103/58
--- NOTE | 2019-08-20 21:52 | NUR ---
PT GIVEN FLEXERIL FOR C/O MUSCLE ACHES/GENERALIZED ACHES AND PAINS. WILL MONITOR FOR EFFECTIVENESS. PT SITTING UP IN BED. IV ANTIBIOTICS INFUSING PER ORDERS. NASAL CANNULA IN TACT. SAFETY MEASURES IN PLACE. CALL LIGHT IN REACH.
[2019-08-20 22:02] VITALS: BP 102/52
--- NOTE | 2019-08-20 22:52 | NUR ---
FLEXERIL EFFECTIVE PER PT.
[2019-08-21 00:04] VITALS: BP 80/40
--- NOTE | 2019-08-21 00:10 | NUR ---
NOTIFIED DR BUSTILLOS OF PT BLOOD PRESSURE. ORDERS GIVEN TO HOLD BP MEDS/PAIN MEDICATION AT THIS TIME.
[2019-08-21 06:21] VITALS: BP 108/62
--- NOTE | 2019-08-21 06:38 | NUR ---
PT GIVEN PERCOCET AT THIS TIME FOR C/O GENERALIZED PAIN. WILL MONITOR FOR EFFECTIVENESS. HOB ELEVATED. RESPIRATIONS UNLABORED. BP WNL FOR MEDICATION. CALL LIGHT IN REACH.
[2019-08-21 08:00] VITALS: BP 88/42
[2019-08-21 12:00] VITALS: BP 83/52
[2019-08-21 14:05] LABS: BUN 20 mg/dl (7-24); CHLORIDE 117 mmol/L (98-107); POTASSIUM 3.7 mmol/L (3.5-5.1); SODIUM 144 mmol/L (136-145)
[2019-08-21 16:00] VITALS: BP 133/96
--- NOTE | 2019-08-21 17:56 | NUR ---
MEDICATED WITH PO PERCOCET ORDERED PER PT REQUEST FOR C/O GENERALIZED PAIN RATED 5/10.
--- NOTE | 2019-08-21 19:29 | NUR ---
MEDICATION SOMEWHAT EFFECTIVE.
[2019-08-21 20:00] VITALS: BP 84/51
--- NOTE | 2019-08-21 20:35 | NUR ---
DR BUSTILLOS NOTIFIED OF BP READING 84/51. STATES TO KEEP AN EYE ON THE PT AND NOTIFY HIM IF IT GETS ANY LOWER. WILL MONITOR.
--- NOTE | 2019-08-21 22:47 | NUR ---
PERCOCET ADMINISTERED FOR PT C/O BACK AND CHEST PAIN RATED A 9/10. PT HAS BEEN COUGHING A LOT. WILL CONTINUE TO MONITOR.
[2019-08-22] VITALS (10 sets, daily range): BP systolic 72–129; BP diastolic 42–66
--- NOTE | 2019-08-22 | NUR ---
PT STATES THE PERCOCET WAS EFFECTIVE IN RELIEVING SOME PAIN.
--- NOTE | 2019-08-22 03:13 | NUR ---
24 HOUR CHART CHECK COMPLETE.
--- NOTE | 2019-08-22 05:37 | NUR ---
PERCOCET ADMINISTERED FOR PT C/O 03/29 CHEST PAIN R/T COUGHING AND CHRONIC BACK PAIN. WILL MONITOR.
--- NOTE | 2019-08-22 08:41 | NUR ---
BP LOW. PER DR BUSTILLOS ASK CARDIOLOGY. DR VILLAREAL ON FLOOR AND NOTIFIED. RECEIVED NEW ORDER FOR IVF BOLUS X1 NOW.
--- NOTE | 2019-08-22 10:40 | NUR ---
Occupational therapy orders received and chart reviewed. Per nursing, patient is not appropriate for therapy at this time. Patient was dizzy with a low BP. Will follow up with patient when appropriate. Thank you. Fanny Blank OTR/L
--- NOTE | 2019-08-22 10:55 | NUR ---
PHYSICAL THERAPY Attempted to see pt for evaluation per nurse pt with low BP and symptomatic to defer therapy at this time, will follow in the PM. Krupa Bui PT
--- NOTE | 2019-08-22 11:12 | NUR ---
Kiln Tender in to see patient. Discussed short term rehab and she would like to think about it. She does have OV currently and if she goes home would like to resume those services. Will follow up at a later time to see patient's discharge plan.
--- NOTE | 2019-08-22 12:00 | NUR ---
WENT IN TO ASSESS PT. PT GETTING BREATHING TREATMENT, RESP 34, HR 120'S. APPEARS TO BE IN DISTRESS. CRACKLES NOTED T/O POSTERIORLY. DR VILLAREAL NOTIFIED. NEW ORDERS RECEIVED FOR BIPAP AND STAT CXR WITH RECOMMENDATIONS TO MOVE TO ICU. DR BUSTILLOS NOTIFIED AND RECEIVED ORDER TO MOVE TO ICU.
--- NOTE | 2019-08-22 12:15 | NUR ---
DR GRANADOS UPDATED ON PATIENT STATUS.
--- NOTE | 2019-08-22 12:20 | NUR ---
RECEIVED FROM 428 VIA BED WITH SOB AND FLUID OVERLOAD & HYPOTENTION DESPITE FLUID BOLUS. LABS DRAWN FROM LEFT MIDLINE WITHOUT DIFFICULTY. BP IN THE 80'S
[2019-08-22 12:30] LABS: BASO % 0.1 % (0.0-1.0); EOS % 0.1 % (1.0-4.0); HEMATOCRIT 28.9 % (37.0-47.0); HEMOGLOBIN 9.2 g/dl (12.0-16.0); LYMPH # 2.4 10*3/uL (1.3-4.4); LYMPH % 18.4 % (27.0-41.0); MEAN CELL VOLUME 98.3 fl (81.0-99.0); MEAN CORPUSCULAR HGB 31.3 pg (27.0-31.0); MEAN CORPUSCULAR HGB CONC 31.8 g/dl (33.0-37.0); MONO # 0.8 10*3/uL (0.1-1.0); MONO % 6.4 % (3.0-9.0); NEUT # 9.7 10*3/uL (2.3-7.9); NEUT % 74.4 % (47.0-73.0); PLATELET COUNT AUTOMATED 161 10*3/uL (130-400); RED BLOOD COUNT 2.94 10*6/uL (4.10-5.10); RED CELL DISTRI WIDTH 18.1 % (0-14.5); WHITE BLOOD COUNT 13.1 10*3/uL (4.8-10.8)
[2019-08-22 12:58] LABS: BUN 21 mg/dl (7-24); CHLORIDE 119 mmol/L (98-107); POTASSIUM 3.1 mmol/L (3.5-5.1); SODIUM 143 mmol/L (136-145)
--- NOTE | 2019-08-22 13:12 | NUR ---
PHYSICAL THERAPY Pt transfered to ICU due to increase HR/RR with low BP will need new orders for PT when pt medically appropriate. Krupa Bui PT
--- NOTE | 2019-08-22 13:13 | NUR ---
Occupational therapy orders received and chart reviewed. Patient was transferred to ICCU due to decrease in BP. Will need new orders when medically appropriate. Thank you. Fanny Blank, OTR/L
--- NOTE | 2019-08-22 13:17 | NUR ---
BROTHER AVELINO UPDATED ON PATIENT.
--- NOTE | 2019-08-22 13:38 | NUR ---
REMAINS ON BIPAP, AWAITING ABGS
[2019-08-22 14:19] LABS: ARTERIAL BLOOD GAS PH 7.314 (7.35-7.45)
[2019-08-22 14:20] LABS: ABG BASE EXCESS -6.3 mmol/L (-2.0-2.0)
--- NOTE | 2019-08-22 17:00 | NUR ---
UP TO BSC, PT REFUSES TO SIT IN RECLINER
--- NOTE | 2019-08-22 18:18 | NUR ---
NORCO REQUESTED FOR 10/10 BELLY PAIN
--- NOTE | 2019-08-22 19:25 | NUR ---
CHART CHECK COMPLETE.
--- NOTE | 2019-08-22 21:30 | NUR ---
FLEXERIL AND RESUMPTION OF DURAGESIC PATCH (PER PT INSISTENCE PREVIOUS ONE REMOVED ON INPT) EFFECTIVE FOR PAIN PER PT.
--- NOTE | 2019-08-22 21:52 | NUR ---
BATH AND BED LINEN CHANGE DONE.
--- NOTE | 2019-08-22 23:26 | NUR ---
PATIENT DOES NOT WANT TO GO ON BIPAP AT THIS TIME. CURRENTLY ON 4 L/M NC. HR 78 SPO2 95%.
[2019-08-23] VITALS: BP 90/59
[2019-08-23 04:00] VITALS: BP 91/50
--- NOTE | 2019-08-23 04:04 | NUR ---
PT STATES PERCOCET AT 0255 FOR "BREAKTHROUGH PAIN IN BACK" EFFECTIVE.
--- NOTE | 2019-08-23 05:27 | NUR ---
ASSISTED UP TO BSC TO VOID AND BACK TO BED.
[2019-08-23 07:37] VITALS: BP 106/65
--- NOTE | 2019-08-23 07:37 | NUR ---
PT NOT ON BIPAP AT THIS TIME
[2019-08-23 07:45] LABS: HEMATOCRIT 26.1 % (37.0-47.0); HEMOGLOBIN 8.8 g/dl (12.0-16.0); LYMPH # 1.6 10*3/uL (1.3-4.4); MEAN CELL VOLUME 92.9 fl (81.0-99.0); MEAN CORPUSCULAR HGB 31.3 pg (27.0-31.0); MEAN CORPUSCULAR HGB CONC 33.7 g/dl (33.0-37.0); MONO # 0.9 10*3/uL (0.1-1.0); MONO % 7.6 % (3.0-9.0); NEUT # 8.8 10*3/uL (2.3-7.9); NEUT % 77.9 % (47.0-73.0); PLATELET COUNT AUTOMATED 150 10*3/uL (130-400); RED BLOOD COUNT 2.81 10*6/uL (4.10-5.10); RED CELL DISTRI WIDTH 17.5 % (0-14.5); WHITE BLOOD COUNT 11.2 10*3/uL (4.8-10.8)
[2019-08-23 07:49] LABS: BUN 19 mg/dl (7-24); CHLORIDE 118 mmol/L (98-107); CREATININE 0.69 mg/dL (0.55-1.02); POTASSIUM 3.7 mmol/L (3.5-5.1); SODIUM 144 mmol/L (136-145)
--- NOTE | 2019-08-23 07:53 | NUR ---
I SPOKE WITH DR Wilfred VILLAREAL AND HE STATED TO KEEP PT NPO THIS AM UNTIL HE SEES HER TO EVALUATE FOR POSSIBLE STRESS TEST TODAY.
--- NOTE | 2019-08-23 08:19 | NUR ---
DR VILLAREAL IN TO SEE PT. PT REMAINS HYPOTENSIVE SO NOT STRESS TEST TO BE DONE TODAY.
--- NOTE | 2019-08-23 09:10 | NUR ---
PT NEEDING TO HAVE HER O2 INCREASED. ONLY ABLE TO GET POX UP TO 85% ON 5L NC. RESPIRATORY THERAPY NOTIFIED AND WILL COME TO EVALUATE PT TO PLACE ON HIGH FLOW O2. DR SAAVEDRA AND DR BUSTILLOS IN ROOM AND AWARE OF PT'S HYPOXIA.
--- NOTE | 2019-08-23 09:16 | NUR ---
DR GRANADOS IN TO SEE PT.
--- NOTE | 2019-08-23 09:32 | NUR ---
AM LOPRESSOR HELD DUE TO DR VILLAREAL'S ORDER TO HOLD IF SBP <110
--- NOTE | 2019-08-23 10:30 | NUR ---
[employer] Technician in to see patient. Staff are currently in the room assisting patient off of BSC. Will follow up at a later time.
[2019-08-23 11:50] VITALS: BP 103/63
--- NOTE | 2019-08-23 14:10 | NUR ---
Tar Processing Technician in to see patient. Staff are currently in the room assisting patient off of BSC. Will follow up at a later time.
--- NOTE | 2019-08-23 15:37 | NUR ---
Employment Training Specialist in to see patient. Discussed short term SNF and she would like to wait to see until closer to discharge to see how she is doing but if she has to go to a SNF then [facility]. Asked for a second choice and she stated she would have to think about it. Discharge plan undecided at this time.
--- NOTE | 2019-08-23 15:46 | NUR ---
MEDICATED PT PER PRN ORDER WITH PERCOCET FOR C/O LEG AND BACK PAIN THAT RATES 8/10 ON PAIN SCALE.
[2019-08-23 16:00] VITALS: BP 111/67
--- NOTE | 2019-08-23 16:57 | NUR ---
PT STATES RELIEF OF PAIN WITH EARLIER PERCOCET.
--- NOTE | 2019-08-23 17:52 | NUR ---
DRESSINGS UNDER PT'S BREASTS CHANGED PER ORDER.
[2019-08-23 20:00] VITALS: BP 113/61
--- NOTE | 2019-08-23 23:32 | NUR ---
PT ASSISTED UP TO BSC AND BACK TO BED. STATES PERCOCET AT 2105 EFFECTIVE FOR DISCOMFORT. RESP DEPT PLACED ON BIPAP ORDERED. ASSESSMENT COMPLETE. CALL LIGHT IN REACH.
[2019-08-24] VITALS: BP 92/54
[2019-08-24 04:00] VITALS: BP 110/64
--- NOTE | 2019-08-24 06:07 | NUR ---
PT OFF OF BIPAP TO 7L HIGH FLOW NASAL CANNULA O2 AT 0600 AND MEDICATED WITH PERCOCET FOR CHRONIC PAIN BACK/NECK AT THAT TIME.
[2019-08-24 08:00] VITALS: BP 98/50
--- NOTE | 2019-08-24 08:00 | NUR ---
DR VILLAREAL IN TO SEE PT.
--- NOTE | 2019-08-24 09:40 | NUR ---
DR GRANADOS IN TO SEE PT.
--- NOTE | 2019-08-24 09:54 | NUR ---
BP 95/53. PO LOPRESSOR HELD.
--- NOTE | 2019-08-24 11:57 | NUR ---
PT PLACED BACK ON BIPAP WHILE SHE IS GOING TO TAKE A NAP.
--- NOTE | 2019-08-24 11:57 | NUR ---
MEDICATED PT PER PRN ORDER WITH PERCOCET FOR C/O BACK AND BILATERAL LEG PAIN THAT RATES 9/10 ON PAIN SCALE.
[2019-08-24 12:00] VITALS: BP 106/66
--- NOTE | 2019-08-24 12:50 | NUR ---
PT STATES RELIEF OF PAIN WITH EARLIER PERCOCET.
--- NOTE | 2019-08-24 13:34 | NUR ---
OFF BIPAP ONTO HI FLOW NASAL CANNULA TO EAT HER LUNCH.
[2019-08-24 16:00] VITALS: BP 109/70
--- NOTE | 2019-08-24 16:05 | NUR ---
PT PLACED BACK TO BIPAP WHILE SHE IS NAPPING.
--- NOTE | 2019-08-24 18:00 | NUR ---
MEDICATED PT PER PRN ORDER WITH PERCOCET FOR C/O BACK AND LEG PAIN THAT RATES 9/10 ON PAIN SCALE.
--- NOTE | 2019-08-24 18:50 | NUR ---
PT STATES RELIEF OF PAIN WITH EARLIER PERCOCET.
--- NOTE | 2019-08-24 19:28 | NUR ---
24 HR chart check completed.
[2019-08-24 20:00] VITALS: BP 109/70
--- NOTE | 2019-08-24 20:00 | NUR ---
PT RESTING ON BED WITH HIGH FLOW NC IN PLACE AT 7L NO DISTRESS NOTED. PT ASSISTED UP TO BEDSIDE COMMODE WITH SOME INCREASE IN SHORTNESS OF BREATH AND FATIGUE REPORTED AND OBSERVED. DRESSINGS INTACT TO BREASTS AND COCCYX AREA. PT DENIES ANY PAIN AT THIS TIME. RN TO CONTINUE TO MONITOR.
--- NOTE | 2019-08-24 21:30 | NUR ---
TUBIGRIP APPLIED TO BILATERAL LOWER EXTREMITIES WITH SCDS. PT RESPIRATIONS EASY AT THIS TIME. OXYGEN SUPPLEMENTATION CONTINUES. PT GIVEN FLEXERIL FOR REPORTED BACK SPASMS. RN TO CONTINUE TO MONITOR.
--- NOTE | 2019-08-24 23:06 | NUR ---
BIPAP APPLIED ORDERED. WILL MONITOR.
[2019-08-25] VITALS (7 sets, daily range): BP systolic 88–117; BP diastolic 54–68
--- NOTE | 2019-08-25 02:42 | NUR ---
0240 PERCOCET PO FOR C/O'S GENERALIZED PAIN. WILL MONITOR.
--- NOTE | 2019-08-25 04:06 | NUR ---
EARLIER PERCOCET EFFECTIVE.RESTING IN BED WITH EYES CLOSED. APPEARS TO BE SLEEPING. BIPAP INTACT.
--- NOTE | 2019-08-25 06:07 | NUR ---
REMAINS SLEEPING WIHTOUT DISTRESS. BIPAP INTACT. CONDITION GUARDED.
--- NOTE | 2019-08-25 07:39 | NUR ---
Shift chart check completed.
--- NOTE | 2019-08-25 09:33 | NUR ---
PATIENT EATING AND HEART RATE UP TO 133..RR 24.... DR GRANADOS, DR VILLAREAL & DR MANCILLA HAS ROUNDED.
--- NOTE | 2019-08-25 10:30 | NUR ---
Welder Manufacture in to see patient. Discussed short term SNF and she is agreeable. Discussed [facility] and she remains agreeable. Spoke to Meghann at [facility] and there are no available beds at [facility] at this time. Discussed with patient and when provided with a list of other facilities she chose 1. [facility], 2. [facility], and 3. [facility]. product planner notified.
--- NOTE | 2019-08-25 10:45 | NUR ---
SITTING UP IN CHAIR WITH PAIN BETTER SONCE MEDICATED - DOZING OFF & ON
--- NOTE | 2019-08-25 10:59 | NUR ---
SLEEPING IN CHAIR - RESP EASY & NONLABORED
--- NOTE | 2019-08-25 13:00 | NUR ---
Orders received from Dr. Lyman for SNF. Faxed Referral to [facility] at Patient request. Will require precert prior to admission once Medically Stable.
--- NOTE | 2019-08-25 13:54 | NUR ---
AGAIN PATIENT'S HEART RATE JUMPED TO 150 WITH GETTING UP TO BSC. HEART RATE CAME DOWN TO 130 WGHILE ON BSC.. DOWN TO LOW 100'S AFTER BACK TO RECLINER & RESTED 10 MIN
[2019-08-25 14:15] LABS: HEMATOCRIT 31.1 % (37.0-47.0); HEMOGLOBIN 9.7 g/dl (12.0-16.0); MEAN CELL VOLUME 98.1 fl (81.0-99.0); MEAN CORPUSCULAR HGB 30.6 pg (27.0-31.0); MEAN CORPUSCULAR HGB CONC 31.2 g/dl (33.0-37.0); PLATELET COUNT AUTOMATED 186 10*3/uL (130-400); RED BLOOD COUNT 3.17 10*6/uL (4.10-5.10); RED CELL DISTRI WIDTH 17.8 % (0-14.5)
[2019-08-25 14:29] LABS: ALBUMIN 2.2 gm/dl (3.1-4.5); ALKALINE PHOSPHATASE 210 U/L (45-117); BUN 22 mg/dl (7-24); CHLORIDE 110 mmol/L (98-107); CREATININE 0.82 mg/dL (0.55-1.02); POTASSIUM 3.3 mmol/L (3.5-5.1); SGOT/AST 17 IU/L (3-35); SGPT/ALT 27 U/L (12-78); SODIUM 140 mmol/L (136-145); TOTAL PROTEIN 5.1 gm/dL (6.4-8.2)
--- NOTE | 2019-08-25 14:43 | NUR ---
AFTER SPEAKING WITH DR VILLAREAL ABOUT ELEVATED HEART RATE ESPECIALLY WITH ACTIVITY - MED CHANGES WERE MADE & METOPROLOL GIVEN AT A LOWER DOSE
[2019-08-25 14:46] LABS: TOTAL CELLS COUNTED 100 #CELLS
[2019-08-25 14:47] LABS: OVALOCYTES FEW; PLATELET SUFFICIENCY NORMAL (NORMAL); POLYCHROMASIA SLIGHT
--- NOTE | 2019-08-25 15:11 | NUR ---
Received call from the unit patient does not want to go to [facility] now. [facility]. Will refer to [facility].
--- NOTE | 2019-08-25 15:27 | NUR ---
Faxed Referral to [facility] per patient request. Will require precert prior to admission once medically stable.
--- NOTE | 2019-08-25 19:47 | NUR ---
REMAINS UP IN CHAIR. REQUESTING PERCOCET FOR BACK PAIN. IS OUTDATED. DR. IGMENEZ CALLED AND ORDERS RECEIVED TO RENEW PERCOCET
--- NOTE | 2019-08-25 20:01 | NUR ---
TITRATED PATIENT TO 3L ON NC. PT TOLERATING WELL. RN AWARE.
--- NOTE | 2019-08-25 20:08 | NUR ---
2009 PERCOCET PO FOR C/O'S BACK PAIN. WILL MONITOR. MIDLINE INTACT AMANDA. 02 INTACT VIA NC. PULSE OX 99%
--- NOTE | 2019-08-25 20:22 | NUR ---
2015 UP TO BSC TO VOID. 2 ASSISTS. HAS DIFFICULTY BEARING OWN WEIGHT. 2017 BACK TO BED. FLAT. 02 INTACT AT 5L. TO LIE FLAT FOR 15MINUTES. CALL LIGHT IN REACH. WILL CONT TO MONITOR. PULSE OX 95%
--- NOTE | 2019-08-25 20:54 | NUR ---
2 TOLERATED LYING FLAT FOR 15 MINUTES. HR REMAINED IN THE 90'S AND PULSE OX STAYED IN THE MID 90'S. EARLIER PERCOCET EFFECTIVE.
--- NOTE | 2019-08-25 21:15 | NUR ---
RESTING IN BED EATING HS SNACK. FLEXERIL GIVEN PER REQUEST FOR MUSCLE SPASMS IN BACK. WILL MONITOR.
--- NOTE | 2019-08-25 22:09 | NUR ---
RESTING IN BED WITH EYES CLOSED. APPEARS TO BE SLEEPING.
--- NOTE | 2019-08-25 23:21 | NUR ---
2310 BIPAP APPLIED. WILL CONT TO MONITOR.
[2019-08-26] VITALS: BP 98/57
--- NOTE | 2019-08-26 00:11 | NUR ---
REMAINS SLEEPING WITH BIPAP INTACT. PULSE OX 100%
--- NOTE | 2019-08-26 02:48 | NUR ---
0210 BIPAP REMOVED PER PT REQUEST. PLACED ON NC. PERCOCET PO FOR C/O'S BACK PAIN. RATES PAIN AN "8". WILL MONITOR.
--- NOTE | 2019-08-26 03:23 | NUR ---
EARLIER PERCOCET EFFECTIVE.BIPAP REAPPLIED.
[2019-08-26 04:00] VITALS: BP 120/69
[2019-08-26 05:30] LABS: ALKALINE PHOSPHATASE 186 U/L (45-117); BUN 24 mg/dl (7-24); CHLORIDE 113 mmol/L (98-107); CREATININE 0.69 mg/dL (0.55-1.02); SGOT/AST 19 IU/L (3-35); SGPT/ALT 25 U/L (12-78); SODIUM 143 mmol/L (136-145); TOTAL PROTEIN 4.8 gm/dL (6.4-8.2)
[2019-08-26 05:33] LABS: POTASSIUM 4.3 mmol/L (3.5-5.1)
--- NOTE | 2019-08-26 06:04 | NUR ---
REMAINS SLEEPING WITHOUT BIPAP INTACT. NO DISTRESS NOTED. CONDITION GUARDED.
[2019-08-26 06:08] LABS: BASO % 0.1 % (0.0-1.0); HEMATOCRIT 28.9 % (37.0-47.0); HEMOGLOBIN 9.2 g/dl (12.0-16.0); LYMPH # 1.1 10*3/uL (1.3-4.4); LYMPH % 10.4 % (27.0-41.0); MEAN CORPUSCULAR HGB 30.6 pg (27.0-31.0); MEAN CORPUSCULAR HGB CONC 31.8 g/dl (33.0-37.0); MEAN PLATELET VOLUME 11.7 fl (9.6-12.3); MONO # 0.9 10*3/uL (0.1-1.0); MONO % 8.4 % (3.0-9.0); NEUT # 8.7 10*3/uL (2.3-7.9); NEUT % 79.7 % (47.0-73.0); PLATELET COUNT AUTOMATED 192 10*3/uL (130-400); RED BLOOD COUNT 3.01 10*6/uL (4.10-5.10); RED CELL DISTRI WIDTH 17.6 % (0-14.5); WHITE BLOOD COUNT 10.9 10*3/uL (4.8-10.8)
--- NOTE | 2019-08-26 07:54 | NUR ---
HARVEY NGUYỄN [id number] Please refer to the physician's history and physical for past medical history, comorbid conditions, and allergies. Diagnosis: SEVERE SEPSIS PAROXYSMAL ATRIAL FIBRILLATION Mike Score: 19,LOW OR NO RISK WOUND DESCRIPTIONS: Wound Number: 1 Location of the wound: Left breast Thickness: Full Size: 1.5cm x 3.0cm x 0.4cm Tunneling: none Undermining: none Sinus Tract: none Presence of Exudate: Serosanguineous Amount: Light Color: Red, yellow Odor: None Periwound Skin Appearance: Erythema Wound edges: approximated Pain (associated with wound): none at time of assessment Wound Number: 2 Location of the wound: right lateral breast right side Thickness: Full Size: 0.8cm x 0.6cm x 0.1cm Tunneling: none Undermining: none Sinus Tract: none Presence of Exudate: Serous Amount: Light Color: Red, yellow Odor: None Periwound Skin Appearance: Scar Wound edges: approximated Pain (associated with wound): none at time of assessment Wound Number: 3 Location of the wound: right medial breast middle wound Thickness: Full Size: 0.4cm x 1.7cm x 0.1cm Tunneling: none Undermining: none Sinus Tract: none Presence of Exudate: Serous Amount: Light Color: Red, yellow Odor: None Periwound Skin Appearance: Scar Wound edges: approximated Pain (associated with wound): none at time of assessment Wound Number: 4 Location of the wound: right medial breast towards sternum left wound no open area noted at time of assessment. Area is pink in color. No drainage noted at time of assessment. Surface the patient is resting on: Isoflex SKIN PREVENTION RECOMMENDATION: 1. Pressure redistribution support surface as appropriate 2. Elevate heels 3. Remove boots/TEDS every shift and reapply 4. Head of bed 30 degrees as tolerated 5. Assess nutrition and hydration 6. Manage moisture 7. Avoid the use of containment devices while in bed 8. Use absorptive products on surfaces limit layers of linens on bed 9. Turn and reposition every 1-2 hours in bed and every 1 hour in chair as tolerated 10. Weight shifts every 15 minutes while up in chair 11. Offloading with pillows or device to keep heels elevated off bed 12. Monitor skin at least every shift 13. Inspect under medical devices twice a day WOUND TREATMENT RECOMMENDATIONS: Consult Dr. Garcia for left breast for deteriorating. D/C stage 2 guidelines Continue full thickness guidelines to right and left breast.
[2019-08-26 08:00] VITALS: BP 100/67
--- NOTE | 2019-08-26 08:00 | NUR ---
DR MANCILLA IN TO SEE PT.
--- NOTE | 2019-08-26 08:30 | NUR ---
DR VILLAREAL IN TO SEE PT. DR VILLAREAL STATED PT COULD FOLLOW UP OUTPT FOR STRESS TEST. DR VILLAREAL ALSO STATED PT IS CLEARED FOR BRONCHOSCOPY.
--- NOTE | 2019-08-26 08:40 | NUR ---
PHYSICAL THERAPY Adeola completed moderate level of complexity 71906 recomned SNF at discharge PT to work on transfers,amb w AD, strenghthning, balance/safety. Full report to follow Krupa Bui PT
--- NOTE | 2019-08-26 08:48 | NUR ---
PT UP TO CHAIR WITH PT/OT. MEDICATED PT PER PRN ORDER WITH PERCOCET FOR C/O LEG PAIN THAT RATES 9/10 ON PAIN SCALE.
--- NOTE | 2019-08-26 09:10 | NUR ---
Dr. Myles notified of wound care recommendations.
--- NOTE | 2019-08-26 10:48 | NUR ---
DR GRANADOS IN TO SEE PT. BRONCH ON THURSDAY.
[2019-08-26 12:00] VITALS: BP 106/67
--- NOTE | 2019-08-26 12:38 | NUR ---
ANESTHESIA QUESTIONNAIRE COMPLETED AND INFORMED CONSENT FOR BRONCHOSCOPY SIGNED BY PT.
--- NOTE | 2019-08-26 13:00 | NUR ---
Contact Center Specialist in to see patient. Discussed [facility] and [facility] not being in network with her insurance. Discussed [facility] and [facility] as both of those facilities are in her insurance network. She states she would prefer to go to [facility]. Explained at this time [facility] doesn't have any available isolation rooms. She verbalized an understanding. planner internship notified.
--- NOTE | 2019-08-26 13:09 | NUR ---
[facility] stating they are unable to accept this patient as they do not have any isolation rooms at this time. Patient is agreeable to a referral to [facility]. Contacted [facility] and faxed referral. Waiting on review/acceptance.
--- NOTE | 2019-08-26 15:11 | NUR ---
Pt was seen x 15 minutes in OT beginning with BUE strengthening to enhance sit to stand & fxl transfers. Educated pt with UB strengthening (towel exercises) followed by performing 10 reps x 4 sets with 2 cues for correct procedures. Continue with OT POC. O2 in place & call light within reach. Eve MOYA/Marcella
[2019-08-26 16:00] VITALS: BP 94/60
--- NOTE | 2019-08-26 16:03 | NUR ---
PT TO 419 VIA BED. PT REPORT GIVEN TO RECEIVING NURSE ON 4E.
--- NOTE | 2019-08-26 16:49 | NUR ---
IN ROOM AT THIS TIME AND PT IS SLEEPING IN HER BED. CALL LIGHT IS WITHIN REACH, WILL CONTINUE TO MONITOR
--- NOTE | 2019-08-26 19:24 | NUR ---
24 HR CHART CHECK COMPLETE.
--- NOTE | 2019-08-26 19:45 | NUR ---
PT RESTING IN BED AT THIS TIME. SHE STATES THAT SHE IS EXPERIENCING PAIN BUT KNOWS IT IS NOT TIME FOR HER MEDICATION YET. PATIENT MEDICATED WITH PRN TYLENOL AT THIS TIME. WILL MONITOR FOR EFFECTIVENESS. BED IS LOW, CALL LIGHT WITHIN REACH. WILL CONTINUE TO MONITOR.
[2019-08-26 20:00] VITALS: BP 97/63
[2019-08-27] VITALS: BP 93/63
[2019-08-27 07:33] LABS: BUN 29 mg/dl (7-24); CHLORIDE 110 mmol/L (98-107); CREATININE 0.67 mg/dL (0.55-1.02); SODIUM 142 mmol/L (136-145)
[2019-08-27 07:34] LABS: HEMATOCRIT 32.2 % (37.0-47.0); HEMOGLOBIN 9.9 g/dl (12.0-16.0); MEAN CORPUSCULAR HGB 30.6 pg (27.0-31.0); MEAN CORPUSCULAR HGB CONC 30.7 g/dl (33.0-37.0); MEAN PLATELET VOLUME 10.3 fl (9.6-12.3); RED BLOOD COUNT 3.24 10*6/uL (4.10-5.10); WHITE BLOOD COUNT 12.8 10*3/uL (4.8-10.8)
[2019-08-27 07:50] LABS: MEAN CELL VOLUME 99.4 fl (81.0-99.0); PLATELET COUNT AUTOMATED 243 10*3/uL (130-400)
[2019-08-27 07:59] LABS: POTASSIUM 3.2 mmol/L (3.5-5.1)
[2019-08-27 08:34] LABS: PLATELET SUFFICIENCY NORMAL (NORMAL); POLYCHROMASIA SLIGHT; SCHISTOCYTES FEW; TARGET CELLS FEW; TOTAL CELLS COUNTED 100 #CELLS
--- NOTE | 2019-08-27 09:07 | NUR ---
PT STATES SHE IS PAIN IN HER LOWER BACK AND LEGS RATING IT A 8/10 AND WANTS SOMETHING FOR PAIN. PRN PERCOCET PO IS GIVEN AT THIS TIME. CALL LIGHT WITHIN REACH, WILL CONTINUE TO MONITOR
[2019-08-27 09:11] VITALS: BP 110/62
--- NOTE | 2019-08-27 11:44 | NUR ---
IN PT ROOM AT THIS TIME TO REASSESS AFTER GIVING PAIN MEDS, AND PT IS SLEEPING. WILL CONTINUE TO MONITOR, CALL LIGHT WITHIN REACH
[2019-08-27 12:00] VITALS: BP 106/71
[2019-08-27] MEDS ORDERED: BICARSIM FORTE125 MG PO (14:53)
--- NOTE | 2019-08-27 14:54 | NUR ---
PT STATES SHE HAS BEEN MOVING HER BOWELS OFTEN TODAY AND THAT SHE IS HAVING SPASMS IN HER ABDOMEN. SHE WAS WONDERING IF SHE COULD HAVE GAS-X LIKE SHE TAKES AT HOME. DR MANCILLA CALLED AND HE STATES TO CONTINUE HER HOME MEDICATION
--- NOTE | 2019-08-27 15:33 | NUR ---
PT STATES SHE IS HAVING PAIN IN HER LOWER BACK AND HER KNEE RATING IT A 9/10. PRM PO OXYCODONE IS GIVEN AT THIS TIME. WILL CONTINUE TO MONITOR THE PATIENT, CALL LIGHT WITHIN REACH
[2019-08-27 16:00] VITALS: BP 108/69
--- NOTE | 2019-08-27 16:51 | NUR ---
PT WOUNDS CHANGED AT THIS TIME, PT TOLERATED WELL. CALL LIGHT WITHIN REACH, WILL CONTINUE TO MONITOR
--- NOTE | 2019-08-27 19:45 | NUR ---
PT IS ASLEEP IN BED AT THIS TIME. NO S/S OF DISTRESS NOTED. BED IS LOW, HIGH FLOW NC IN USE, CALL LIGHT WITHIN REACH. WILL CONTINUE TO MONITOR.
[2019-08-27 20:00] VITALS: BP 97/64
--- NOTE | 2019-08-27 22:30 | NUR ---
IV started right arm with #20 protective cath after 2 attempts. Site prepped with Chloroprep. Sterile dressing applied. Patient tolerated procedure well. ROB MUELLER
[2019-08-28] VITALS: BP 115/66
[2019-08-28 07:55] LABS: BUN 29 mg/dl (7-24); CHLORIDE 111 mmol/L (98-107); CREATININE 0.47 mg/dL (0.55-1.02); POTASSIUM 4.2 mmol/L (3.5-5.1); SODIUM 142 mmol/L (136-145)
[2019-08-28 08:00] VITALS: BP 90/56
--- NOTE | 2019-08-28 08:24 | NUR ---
PT RESTING IN BED. NO DISTRESS NOTED. WILL MONITOR
[2019-08-28 09:00] LABS: BASO % 0.1 % (0.0-1.0); EOS # 0.1 10*3/uL (0.0-0.4); EOS % 0.7 % (1.0-4.0); HEMATOCRIT 30.4 % (37.0-47.0); HEMOGLOBIN 9.2 g/dl (12.0-16.0); LYMPH # 3.1 10*3/uL (1.3-4.4); LYMPH % 30.9 % (27.0-41.0); MEAN CELL VOLUME 100.3 fl (81.0-99.0); MEAN CORPUSCULAR HGB 30.4 pg (27.0-31.0); MEAN CORPUSCULAR HGB CONC 30.3 g/dl (33.0-37.0); MEAN PLATELET VOLUME 9.9 fl (9.6-12.3); MONO % 9.6 % (3.0-9.0); NEUT # 5.7 10*3/uL (2.3-7.9); NEUT % 57.3 % (47.0-73.0); PLATELET COUNT AUTOMATED 245 10*3/uL (130-400); RED BLOOD COUNT 3.03 10*6/uL (4.10-5.10); RED CELL DISTRI WIDTH 17.8 % (0-14.5)
--- NOTE | 2019-08-28 11:20 | NUR ---
PT REQUESTED AND GIVEN PERCOCET FOR C/O GEN PAIN WILL MONITOR
[2019-08-28 12:00] VITALS: BP 91/55
--- NOTE | 2019-08-28 12:30 | NUR ---
PERCOCET HELPED PER PT WILL MONITOR
--- NOTE | 2019-08-28 14:39 | NUR ---
pt hr 130-140 and pt has no iv site dr padilla notified
[2019-08-28 16:00] VITALS: BP 103/58
--- NOTE | 2019-08-28 17:48 | NUR ---
PT REQUESTED AND GIVEN PERCOCET FOR C/O GEN PAIN PT RATES PAIN 8/ WILL MONITOR
[2019-08-28 20:00] VITALS: BP 105/61
--- NOTE | 2019-08-28 23:52 | NUR ---
PRN PERCOCET GIVEN FOR PT COMPLAINTS OF GENERALIZED CHRONIC PAIN RATING IT 8/10. CALL LIGHT WITHIN REACH, WILL MONITOR
[2019-08-29] VITALS (9 sets, daily range): BP systolic 105–123; BP diastolic 60–78
--- NOTE | 2019-08-29 01:27 | NUR ---
PRN PERCOCET APPEARS EFFECTIVE,PT SLEEPING
--- NOTE | 2019-08-29 01:46 | NUR ---
24 HR chart check completed.
--- NOTE | 2019-08-29 06:15 | NUR ---
OK TO GIVE PATIENT PAIN PILL WITH SIP OF WATER PER DR. AGUERO
--- NOTE | 2019-08-29 06:50 | NUR ---
NOTIFIED DR. VÁSQUEZ OF PATIENTS NEW SKIN TEAR. ORDERS RECIEVED FOR SKIN TEAR GUIDELINES
--- NOTE | 2019-08-29 07:52 | NUR ---
HARVEY NGUYỄN Gwen [id number] Please refer to the physician's history and physical for past medical history, comorbid conditions, and allergies. Diagnosis: SEVERE SEPSIS PAROXYSMAL ATRIAL FIBRILLATION Mike Score: 15,AT RISK WOUND DESCRIPTIONS: Wound Number: 5 Location of the wound: Right shoulder Type of wound: skin tear Thickness: Partial Size: 1.7cm x 1.0cm x 0.1cm Tunneling: none Undermining: none Sinus Tract: none Presence of Exudate: Serosanguineous Amount: Light Color: Red Odor: None Periwound Skin Appearance: Normal Wound edges: approximated Pain (associated with wound): none at time of assessment How does patient state this happened? pt stated when she moved in bed this occured Surface the patient is resting on: Isoflex SKIN PREVENTION RECOMMENDATION: 1. Pressure redistribution support surface as appropriate 2. Elevate heels 3. Remove boots/TEDS every shift and reapply 4. Head of bed 30 degrees as tolerated 5. Assess nutrition and hydration 6. Manage moisture 7. Avoid the use of containment devices while in bed 8. Use absorptive products on surfaces limit layers of linens on bed 9. Turn and reposition every 1-2 hours in bed and every 1 hour in chair as tolerated 10. Weight shifts every 15 minutes while up in chair 11. Offloading with pillows or device to keep heels elevated off bed 12. Monitor skin at least every shift 13. Inspect under medical devices twice a day WOUND TREATMENT RECOMMENDATIONS: Continue skin tear guidelines: Cleanse right shoulder with nss and apply sureprep around the wound hydrogel to wound bed and cover with optifoam gentle every 2 days and prn.
--- NOTE | 2019-08-29 08:04 | NUR ---
PT RESTING IN BED/ NO DISTRESS NOTED. WILL MONITOR
--- NOTE | 2019-08-29 08:07 | NUR ---
PHYSICAL THERAPY Screen recieved as well as PT eval, pt has been assessed and is on caseload thank you. Krupa Bui PT
--- NOTE | 2019-08-29 08:08 | NUR ---
PT RESTING IN BED. NO DISTRESS NOTED. WILL MONITOR
[2019-08-29 08:20] LABS: BASO % 0.1 % (0.0-1.0); EOS % 0.4 % (1.0-4.0); HEMATOCRIT 29.5 % (37.0-47.0); HEMOGLOBIN 9.4 g/dl (12.0-16.0); LYMPH # 2.9 10*3/uL (1.3-4.4); LYMPH % 25.6 % (27.0-41.0); MEAN CELL VOLUME 97.7 fl (81.0-99.0); MEAN CORPUSCULAR HGB 31.1 pg (27.0-31.0); MEAN CORPUSCULAR HGB CONC 31.9 g/dl (33.0-37.0); MONO % 8.5 % (3.0-9.0); NEUT # 7.3 10*3/uL (2.3-7.9); NEUT % 64.4 % (47.0-73.0); PLATELET COUNT AUTOMATED 254 10*3/uL (130-400); RED BLOOD COUNT 3.02 10*6/uL (4.10-5.10); RED CELL DISTRI WIDTH 17.3 % (0-14.5); WHITE BLOOD COUNT 11.3 10*3/uL (4.8-10.8)
[2019-08-29 08:28] LABS: BUN 27 mg/dl (7-24); CHLORIDE 107 mmol/L (98-107); CREATININE 0.51 mg/dL (0.55-1.02); SODIUM 141 mmol/L (136-145)
--- NOTE | 2019-08-29 08:30 | NUR ---
PHYSICAL THERAPY Patient seen this am 1;1 for therapy visit and was supine in bed upon therapist arrival. Patient identified by name / and presented with continuous O2-3L via NC. SpO2 94%, HR 92 bpm at rest with OT records management assistant present this morning for observation only. Patient transfers supine to sit EOB, MIN A, tolerating static EOB sit x a minute or so to collect herself. Patient performed sit to stand transfer, CGA, ambulating 20' x 2 to bathroom and back, CGA, use of wh walker, demonstating very slow suzie, decreased stride, increased fatigue. Patient returned to EOB sit with SpO2 85%, HR 110 bpm and needed brief rest period to return to near baseline stats. Patient also able to complete seated B LE therex, all planes, AROM, x 10 reps each without c/o and returned to supine in bed. Patient remained in bed with call light, tray table, telephone and bed alarm for safety. Will continue per POC as tolerated, total treatment time 18 minutes. Anish Gaston, MOLTEN IRON POURER
--- NOTE | 2019-08-29 08:30 | NUR ---
OT NOTE Pt was seen this A.M. 1:1 for 25 minute OT session. Upon arrival pt was supine in bed. Pt identified by name and and had complaints of 8/10 R knee pain. Pt presented to therapy with continuous 3L-O2 via NC which she remained on throughout the entire session. Pt transferred supine to sit EOB with SBA and use of bed rail for UE support. While sitting EOB pt donned B socks with SBA. Pt initally attempted to gisselle while being forward flexed increasing SOB. Pt was educated on compensatory technique of bringing her leg over knee which she completed with SBA. Sit to stand completed from bed level with Romain and use of w/w for UE support. Functional mobility was then completed into the bathroom with CGA and use of w/w. There she transferred on to standard commode with Romain and off with modA due to low surface. Pt was educated on proper hand placement for increased I and improved technique. Clothing management completed with CGA and toilet hygiene completed with SBA. She then stood sink side while washing her hands with CGA. Functional mobility was then completed back to the EOB. SpO2 dropped to 85% and after 60 seconds raised to 94%. Pt was educated on pursed lip breathing throughout. Pt transferrred sit to supine with SBA. There she was left with call light in hand, tray table in place, and bed alarm activated for saftey. Continue with rec D/C plan to SNF. HEATHER Morales/Marcella
--- NOTE | 2019-08-29 09:00 | NUR ---
Early Childhood Education Coordinator in to see patient. Discussed short term SNF. Discussed [facility] not able to take patient at this time and [facility] not having any isolation bed availability. She states she doesn't want to go to [facility]. Choices left are [place] in [place] or [facility]. She states those are both too far for her family. technical planner checking for any openings at [facility] as that is where patient really would like to go and [facility] [place] as it is close to home.
--- NOTE | 2019-08-29 09:24 | NUR ---
Patient changing her mind again. Now she doesn't want to go to [facility], she wants [facility] who stated they do not have a private room for isolation; [facility] who does not have any available beds. [facility] who also doesn't have any isolation rooms available; now shes asking for [facility]. Faxed face sheet to [facility] to see if they are in network. {she has been accepted to [facility] and requires precert, but patient doesn't want to go that far} Waiting on benefits check from [facility]. Requires long precert
--- NOTE | 2019-08-29 10:02 | NUR ---
[facility]- no isolation rooms available. [facility] - out of network [facility] - no isolatin rooms available. [facility] - in network, patient has been accepted, requires precert. Patient doesn't want to go here. Waiting on decision.
--- NOTE | 2019-08-29 11:51 | NUR ---
Clinical Product Specialist in to see patient. Discussed [facility] [place] being out of network with her insurance. She can go to [facility]. She refuses stating she will go home with the resumption of her [facility] services. sr. merchandise planner notified.
--- NOTE | 2019-08-29 12:18 | NUR ---
PT REQUESTED AND GIVEN PERCOCET FOR C/O GEN PAIN PT RATES PAIN 6/10 WILL MONITOR
--- NOTE | 2019-08-29 13:36 | NUR ---
Gabby from [facility] is here to see patient. She provided a virtual tour of the facility, now patient is agreeable. Provided [facility] with updates, melony started, waiting on auth.
--- NOTE | 2019-08-29 16:08 | NUR ---
Nursing screen received and patient is currently on caseload. Thank you. Fanny Blank, OTR/L
--- NOTE | 2019-08-29 20:09 | NUR ---
PATIENT SLEEPING BUT AROUSES EASILY. IV ATB HUNG INFUSING WITHOUT DIFFICULTY. NASAL CANNULA INTACT. CALL LIGHT WITHIN REACH, WILL MONITOR
[2019-08-30] VITALS: BP 122/80
--- NOTE | 2019-08-30 02:20 | NUR ---
PRN PERCOCET GIVEN FOR CHRONIC PAIN. CALLLIGHT WITHN REACH, WILL MONITOR
--- NOTE | 2019-08-30 03:37 | NUR ---
PRN MEDICATION APPEARS EFFECTIVE, PT SLEEPING
--- NOTE | 2019-08-30 03:44 | NUR ---
24 HR chart check completed.
[2019-08-30 08:00] VITALS: BP 113/73
[2019-08-30 08:14] LABS: BASO % 0.1 % (0.0-1.0); EOS % 0.2 % (1.0-4.0); HEMATOCRIT 30.2 % (37.0-47.0); HEMOGLOBIN 9.4 g/dl (12.0-16.0); LYMPH % 23.1 % (27.0-41.0); MEAN CELL VOLUME 98.4 fl (81.0-99.0); MEAN CORPUSCULAR HGB 30.6 pg (27.0-31.0); MEAN CORPUSCULAR HGB CONC 31.1 g/dl (33.0-37.0); MEAN PLATELET VOLUME 10.1 fl (9.6-12.3); MONO # 0.9 10*3/uL (0.1-1.0); MONO % 6.7 % (3.0-9.0); NEUT % 69.2 % (47.0-73.0); PLATELET COUNT AUTOMATED 272 10*3/uL (130-400); RED BLOOD COUNT 3.07 10*6/uL (4.10-5.10); RED CELL DISTRI WIDTH 17.5 % (0-14.5); WHITE BLOOD COUNT 13.1 10*3/uL (4.8-10.8)
--- NOTE | 2019-08-30 09:00 | NUR ---
Signal Tower Director in to see patient. No new needs or request at this time. When medically stable and precert is received she will be discharged to [facility]. senior buyer planner following.
--- NOTE | 2019-08-30 09:33 | NUR ---
Nutritional Support Services Note: Pt is on a regular diet consuming 100% of meals. Receives chocolate Ensure TID w/ meals. Skin tear noted. Continue to encourage good PO intakes and promote wound healing. Will follow if needed. MEDHAT [place] internet sales associate
--- NOTE | 2019-08-30 09:35 | NUR ---
OT NOTE Pt was seen this A.M. 1:1 for 20 minute OT session. Upon arrival pt was supine in bed. Pt identified by name and and had no complaints at this time. Pt presented to therapy with continuous 2L-O2 via NC which she remained on throughout the entire session. Pt's resting SpO2 was 93% and heart rate 125 bpm. Pt transferred supine to sit EOB with SBA. While sitting EOB pt donned B socks with SBA. Sit to stand completed from bed level with CGA and use of w/w for UE support followed by functional mobility into the bathroom with CGA and use of w/w. There pt transferred on to standard commode with CGA for safety and off with Romain for assist from low level. Clothing management completed with CGA and toilet hygiene completed with distant supervision while seated. Pt then stood sink side while washing her hands, face, and completing hair care with CGA. Pt had one minor LOB that occured while crossing midline for paper towels that was able to be self corrected. Throughout activity pt's SpO2 dropped to 84% and heart rate 140 bpm. Pt was educated on pursed lip breathing and breathing techniques and after aprox one minute of a seated rest break in the chair pt's SpO2 raised to 90% and heart rate 128 bpm. Pt was educated on energy conservation techniques for increased I and safety in ADL/IADL tasks. Sit to stand completed from chair level with modA due to low surface. Pt transferred back into bed sit to supine with SBA. There she was left with call light in hand, tray table in place, and bed alarm activated for safety. Continue with rec D/C plan to SNF. HEATHER Morales/Marcella
--- NOTE | 2019-08-30 09:50 | NUR ---
MEDICATED WITH PO PERCOCET ORDERED PER PT REQUEST FOR C/O GENERALIZED PAIN RATED 5/10.
[2019-08-30 10:02] LABS: BUN 27 mg/dl (7-24); CHLORIDE 107 mmol/L (98-107); CREATININE 0.92 mg/dL (0.55-1.02); POTASSIUM 3.6 mmol/L (3.5-5.1); SODIUM 140 mmol/L (136-145)
--- NOTE | 2019-08-30 10:54 | NUR ---
PHYSICAL THERAPY TREATMENT TIME: 9:15 AM - 09:40 AM 25 MINUTES Patient presented to therapy in supine with head of bed elevated and 2 liters of spO2 VIA NASAL CANULA. Patient gives informed consent for treatment. Patient was identified by name and on wristband. Patient's O2 SAT was recorded as 93% and pulse at 125 prior to therapy session. Patient performed supine to sitting at EOB with SBA - CGA. Patient performed sit to stand from EOB with MIN A X 1. Patient ambulated 20' x 2 with Wh Walker and 2 liters of spO2 VIA NASAL CANULA with 1 minor LOB and no significant SOB. Patient transferred MOD A X 1 out of low chair with verbal cues for pushing off the armrests of chair with hands. Patient performed TUG TEST in 35 seconds with CGA with MOD A X 1 to stand out of low chair. Patient transferred back supine in bed with CGA X 1. Patient's O2 SAT was recorded as 84% and pulse at 140 post ambulating. Patient recovered to 90% and 128 within 1 minute rest. Patient was left in supine with head of bed elevated, call light within reach and bed alarm activated. Patient was 1:1 with this CONGRESSIONAL DISTRICT AIDE for 25 minutes total. GEOVANNI LUCERO CONGRESSIONAL DISTRICT AIDE
--- NOTE | 2019-08-30 11:48 | NUR ---
Received auth for patient to go to [facility]. Patient is ok to go if medically stable for discharge. Patient MUST have Midline removed prior to admitting to snf.
[2019-08-30 12:00] VITALS: BP 99/60
--- NOTE | 2019-08-30 12:00 | NUR ---
MEDICATION EFFECTIVE FOR PAIN.
[2019-08-30 16:00] VITALS: BP 102/60
--- NOTE | 2019-08-30 16:06 | NUR ---
MEDICATED WITH PO PERCOCET ORDERED PER PT REQUEST FOR C/O PAIN TO BACK RATED 5/10. PREVIOUS DOSE EFFECTIVE. FENTYNAL PATCH TO RIGHT UPPER ARM.
[2019-08-30 16:07] LABS: ACID FAST SPEC PROCESSING Concentration (.)
--- NOTE | 2019-08-30 18:00 | NUR ---
MEDICATION EFFECTIVE FOR PAIN.
[2019-08-30 20:00] VITALS: BP 98/81
--- NOTE | 2019-08-30 23:26 | NUR ---
PLACED PATIENT ON BIPAP
[2019-08-31] VITALS: BP 127/70
[2019-08-31 07:23] LABS: BASO % 0.1 % (0.0-1.0); EOS % 0.1 % (1.0-4.0); HEMATOCRIT 30.7 % (37.0-47.0); HEMOGLOBIN 9.6 g/dl (12.0-16.0); LYMPH # 3.1 10*3/uL (1.3-4.4); LYMPH % 20.5 % (27.0-41.0); MEAN CELL VOLUME 98.1 fl (81.0-99.0); MEAN CORPUSCULAR HGB 30.7 pg (27.0-31.0); MEAN CORPUSCULAR HGB CONC 31.3 g/dl (33.0-37.0); MEAN PLATELET VOLUME 10.3 fl (9.6-12.3); MONO # 1.1 10*3/uL (0.1-1.0); MONO % 6.9 % (3.0-9.0); NEUT # 10.9 10*3/uL (2.3-7.9); NEUT % 71.8 % (47.0-73.0); PLATELET COUNT AUTOMATED 325 10*3/uL (130-400); RED BLOOD COUNT 3.13 10*6/uL (4.10-5.10); RED CELL DISTRI WIDTH 16.9 % (0-14.5); WHITE BLOOD COUNT 15.1 10*3/uL (4.8-10.8)
[2019-08-31 07:45] LABS: BUN 26 mg/dl (7-24); CHLORIDE 106 mmol/L (98-107); CREATININE 0.66 mg/dL (0.55-1.02); SODIUM 138 mmol/L (136-145)
[2019-08-31 07:46] LABS: POTASSIUM 4.3 mmol/L (3.5-5.1)
[2019-08-31 08:00] VITALS: BP 120/60
--- NOTE | 2019-08-31 08:34 | NUR ---
MEDICATED WITH PO PERCOCET ORDERED PER PT REQUEST FOR C/O PAIN TO BACK RATED 4/10.
--- NOTE | 2019-08-31 08:41 | NUR ---
MEDS SCANNED BUT NOT GIVEN D/T STRESS/NPO.
--- NOTE | 2019-08-31 09:00 | NUR ---
Hot Room Attendant in to see patient. No new needs or request at this time. When medically stable and precert is received she will be discharged to [facility]. materials planner/production planner following.
--- NOTE | 2019-08-31 09:30 | NUR ---
OT NOTE Pt was seen this A.M. 1:1 for 20 minute OT session. Upon arrival pt was supine in bed. Pt identified by name and and had complaints of 7/10 Low back pain. Pt presented to therapy on room air which she remained on throughout the entire session. Pt's resting SpO2 was 98% and heart rate 90 bpm. Pt transferred supine to sit EOB with SBA and use of bed rail for UE support. Sit to stand completed from bed level with CGA and use of w/w for UE support. Functional mobility was then completed into the bathroom with CGA and use of w/w for UE support. There she transferred on to standard commode with CGA and off with Romain due to low surface. Clothing management completed with CGA and toilet hygiene completed with distant supervision while seated. Pt then stood sink side while washing her hands, face, and completed hair care with CGA. Functional mobility was then completed back to the EOB where her SpO2 was reading at 88%, pt was educated on pursed lip breathing and correcting her posture. Within aprox 30 seconds SPO2 raised to 93%. Pt was left supine in bed with call light in hand, tray table in place, and bed alarm activated for safety. Continue with rec D/C plan to SNF. TAZ Morales
--- NOTE | 2019-08-31 11:45 | NUR ---
INFORMED CONSENT OBTAINED FOR LEXISCAN NUCLEAR STRESS TEST WITH DR. FAY. RESTING EKG LBBB WITH A RESTING HR OF 100 WITH BP OF 92/60. LUNGS CLEAR WITH SPO2 OF 91% ON ROOM AIR. PT COMPLETED A 1:00 LEXISCAN PROTOCOL RECEIVING LEXISCAN 0.4 MG IV OVER 10 SECONDS. HAD NO CHEST PAIN BUT C/O FEELING "WARM" THAT WAS RELIEVED IN RECOVERY. EKG NONDIAGNOSTIC WITH LBBB. HAD A PEAK HR OF 113 WITH BP OF 90/50. LAST RECOVERY HR OF 110 WITH BP OF 94/60. AWAITING SCANNING IN STABLE CONDITION.
[2019-08-31] MEDS ORDERED: DURAGESIC1 EAC2 T (14:30)
[2019-08-31] MEDS ORDERED: ADDERALL 10 MG10 MG PO (14:30)
[2019-08-31] MEDS ORDERED: LOPRESSOR25 MG PO (14:30)
[2019-08-31] MEDS ORDERED: PREDNISONE10 MG PO (14:30)
[2019-08-31] MEDS ORDERED: NEURONTIN400 MG PO (14:30)
[2019-08-31] MEDS ORDERED: LASIX40 MG PO (14:30)
[2019-08-31] MEDS ORDERED: PERCOCET 7.5-31 EACH PO (14:30)
--- NOTE | 2019-08-31 14:47 | NUR ---
OCCUPATIONAL THERAPY CO-SIGN I approve of the Occupational Therapy notes written above. FRED COOPER, OTR/L
--- NOTE | 2019-08-31 14:56 | NUR ---
Patient is discharged to the [facility] via [facility] at 6PM. DC information faxed. [facility], nursing/domestic freight forwarder notified. unable to contact brother Trung, left message.
[2019-08-31 16:00] VITALS: BP 96/56
--- NOTE | 2019-08-31 16:44 | NUR ---
PT REFUSING D/C WOUND PHOTOS.
[2019-08-31 17:00] VITALS: BP 148/50
--- NOTE | 2019-08-31 17:26 | NUR ---
MEDICATED WITH PO PERCOCET ORDERED PER REQUEST FOR C/O PAIN TO BACK RATED 4/10.
--- NOTE | 2019-08-31 20:41 | NUR ---
ATTEMPTED TO CALL JENNYFER WYLIE IN [place] TO GIVE A NURSE TO NURSE REPORT AND WAS TRANSFERRED TO THE NURSE WHO WAS GETTING THIS PATIENT AND GOT NO ANSWER. WILL TRY AGAIN.
--- NOTE | 2019-08-31 21:31 | NUR ---
[facility] HERE TO GET PATIENT AT THIS TIME. PATIENT LEFT IN CARE OF THEM WITH HER BELONGINGS TO GO TO [facility] IN [place] FOR REHAB. IV WAS OUT AND MONITOR OFF.
--- NOTE | 2019-09-01 15:32 | NUR ---
PHYSICAL THERAPY CO-SIGN I approve of the Physical Therapy notes written above. Krupa Bui PT
== END 2019-08-31 21:32 | disposition other institution (70) | DRG 871 ==
LOC: ED 12:26 → ICCU 16:25 → 4E 16:25 → EDHOLD 16:25 → ICCU 17:21 → 4E 08-19 18:38 → ICCU 08-22 12:01 → 4E 08-26 14:16
PROVIDERS: Emergency Medicine; Hospitalist; Internal Medicine; Internal Medicine Cardiovascular Disease; Internal Medicine Critical Care Medicine; Student in an Organized Health Care Education/Training Program; ADMIT Family Medicine
PROC: 5A09357 Assistance with Respiratory Ventilation, Less than 24 Consecutive Hours, Continuous Positive Airway Pressure (ICD-10-PCS; principal; 2019-08-24)
PROC: 5A09357 Assistance with Respiratory Ventilation, Less than 24 Consecutive Hours, Continuous Positive Airway Pressure (ICD-10-PCS; 2019-08-25)
PROC: 5A09357 Assistance with Respiratory Ventilation, Less than 24 Consecutive Hours, Continuous Positive Airway Pressure (ICD-10-PCS; 2019-08-26)
PROC: 0BC88ZZ Extirpation of Matter from Left Upper Lobe Bronchus, Via Natural or Artificial Opening Endoscopic (ICD-10-PCS; 2019-08-29)
PROC: 0BC38ZZ Extirpation of Matter from Right Main Bronchus, Via Natural or Artificial Opening Endoscopic (ICD-10-PCS; 2019-08-29)
PROC: 0BCB8ZZ Extirpation of Matter from Left Lower Lobe Bronchus, Via Natural or Artificial Opening Endoscopic (ICD-10-PCS; 2019-08-29)
PROC: 0BC18ZZ Extirpation of Matter from Trachea, Via Natural or Artificial Opening Endoscopic (ICD-10-PCS; 2019-08-29)
PROC: 0BC48ZZ Extirpation of Matter from Right Upper Lobe Bronchus, Via Natural or Artificial Opening Endoscopic (ICD-10-PCS; 2019-08-29)
PROC: 0BC58ZZ Extirpation of Matter from Right Middle Lobe Bronchus, Via Natural or Artificial Opening Endoscopic (ICD-10-PCS; 2019-08-29)
PROC: 0BC98ZZ Extirpation of Matter from Lingula Bronchus, Via Natural or Artificial Opening Endoscopic (ICD-10-PCS; 2019-08-29)
PROC: 5A09357 Assistance with Respiratory Ventilation, Less than 24 Consecutive Hours, Continuous Positive Airway Pressure (ICD-10-PCS; 2019-08-29)
PROC: 0BC78ZZ Extirpation of Matter from Left Main Bronchus, Via Natural or Artificial Opening Endoscopic (ICD-10-PCS; 2019-08-29)
PROC: 0BC68ZZ Extirpation of Matter from Right Lower Lobe Bronchus, Via Natural or Artificial Opening Endoscopic (ICD-10-PCS; 2019-08-29)
PROC: 5A09357 Assistance with Respiratory Ventilation, Less than 24 Consecutive Hours, Continuous Positive Airway Pressure (ICD-10-PCS; 2019-08-30)
PROC: 3E073KZ Introduction of Other Diagnostic Substance into Coronary Artery, Percutaneous Approach (ICD-10-PCS; 2019-08-31)
PROC: 4A02XM4 Measurement of Cardiac Total Activity, External Approach (ICD-10-PCS; 2019-08-31)
PROC: 5A09357 Assistance with Respiratory Ventilation, Less than 24 Consecutive Hours, Continuous Positive Airway Pressure (ICD-10-PCS; 2019-08-31)
DX: A41.9 Sepsis, unspecified organism (principal); N17.0 Acute kidney failure with tubular necrosis; E43 Unspecified severe protein-calorie malnutrition; J15.5 Pneumonia due to Escherichia coli; I50.43 Acute on chronic combined systolic (congestive) and diastolic (congestive) heart failure; J96.21 Acute and chronic respiratory failure with hypoxia; J44.1 Chronic obstructive pulmonary disease with (acute) exacerbation; J44.0 Chronic obstructive pulmonary disease with (acute) lower respiratory infection; M00.061 Staphylococcal arthritis, right knee; E87.2 Acidosis; I47.1 Supraventricular tachycardia; Z16.12 Extended spectrum beta lactamase (ESBL) resistance; R65.20 Severe sepsis without septic shock; F17.210 Nicotine dependence, cigarettes, uncomplicated; R73.9 Hyperglycemia, unspecified; E87.6 Hypokalemia; M54.5 Low back pain; G89.29 Other chronic pain; F41.8 Other specified anxiety disorders; E55.9 Vitamin D deficiency, unspecified; E53.8 Deficiency of other specified B group vitamins; F32.9 Major depressive disorder, single episode, unspecified; Z96.652 Presence of left artificial knee joint; Z96.641 Presence of right artificial hip joint; B95.62 Methicillin resistant Staphylococcus aureus infection as the cause of diseases classified elsewhere; I25.10 Atherosclerotic heart disease of native coronary artery without angina pectoris; J20.9 Acute bronchitis, unspecified; R07.89 Other chest pain; K58.8 Other irritable bowel syndrome; I48.0 Paroxysmal atrial fibrillation; I44.7 Left bundle-branch block, unspecified; E66.9 Obesity, unspecified; D64.9 Anemia, unspecified; Z98.84 Bariatric surgery status; Z71.6 Tobacco abuse counseling; Z68.28 Body mass index [BMI] 28.0-28.9, adult; Z90.710 Acquired absence of both cervix and uterus; Z90.49 Acquired absence of other specified parts of digestive tract; Z83.3 Family history of diabetes mellitus; Z82.49 Family history of ischemic heart disease and other diseases of the circulatory system; Z82.0 Family history of epilepsy and other diseases of the nervous system; Z88.6 Allergy status to analgesic agent; Z88.5 Allergy status to narcotic agent; Z88.8 Allergy status to other drugs, medicaments and biological substances; Z79.899 Other long term (current) drug therapy; Z79.01 Long term (current) use of anticoagulants; Z86.718 Personal history of other venous thrombosis and embolism

== ENCOUNTER 2019-10-29 17:34 | Inpatient (IN) | payer OTHER ==
[~2019-10-29] VITALS: Ht 175.2 cm; Wt 91.7 kg
[~2019-10-29 17:34] MED LIST changes: +BICARSIM FORTE125 MG PO; +DURAGESIC1 EAC2 T; +INCRUSE ELLI62.5 MCG INH; +LASIX40 MG PO; +LOPRESSOR25 MG PO; +POTASSIUM CHLO20 ME3 PO; +TRINTELLIX10 MG PO; +VITAMIN D35000 UNIT PO; +XARELTO20 M1 PO; +ZINC OXIDE OINT1 OZ T
[2019-10-29 17:40] VITALS: BP 95/67
[2019-10-29 18:28] LABS: BASO % 0.5 % (0.0-1.0); EOS % 0.3 % (1.0-4.0); HEMATOCRIT 39.6 % (37.0-47.0); LYMPH % 33.8 % (27.0-41.0); MEAN CELL VOLUME 101.8 fl (81.0-99.0); MEAN CORPUSCULAR HGB 31.9 pg (27.0-31.0); MEAN CORPUSCULAR HGB CONC 31.3 g/dl (33.0-37.0); MEAN PLATELET VOLUME 9.6 fl (9.6-12.3); MONO # 0.6 10*3/uL (0.1-1.0); MONO % 7.3 % (3.0-9.0); NEUT # 5.1 10*3/uL (2.3-7.9); NEUT % 57.9 % (47.0-73.0); PLATELET COUNT AUTOMATED 344 10*3/uL (130-400); RED BLOOD COUNT 3.89 10*6/uL (4.10-5.10); RED CELL DISTRI WIDTH 15.1 % (0-14.5); WHITE BLOOD COUNT 8.8 10*3/uL (4.8-10.8)
[2019-10-29 18:45] LABS: ALBUMIN 2.6 gm/dl (3.1-4.5); ALKALINE PHOSPHATASE 175 U/L (45-117); BUN 17 mg/dl (7-24); CHLORIDE 112 mmol/L (98-107); CREATININE 0.86 mg/dL (0.55-1.02); POTASSIUM 3.5 mmol/L (3.5-5.1); SGOT/AST 27 IU/L (3-35); SGPT/ALT 20 U/L (12-78); SODIUM 137 mmol/L (136-145)
[2019-10-29 23:38] LABS: ACT PARTIAL THROMBO TIME 29.6 SECONDS (20.0-32.1)
[2019-10-30 00:30] VITALS: BP 91/73
[2019-10-30] MEDS ORDERED: ADDERALL 10 MG10 MG PO (01:00)
[2019-10-30 06:21] LABS: BUN 17 mg/dl (7-24); CHLORIDE 114 mmol/L (98-107); CHOLESTEROL 124 mg/dL (<200); FREE T4 0.83 ng/dl (0.76-1.46); HDL CHOLESTEROL 51 mg/dl (40-60); LDL CHOLESTEROL 59 mg/dL (9-159); PHOSPHOROUS 2.9 mg/dL (2.5-4.9); POTASSIUM 3.3 mmol/L (3.5-5.1); SODIUM 141 mmol/L (136-145); TRIGLYCERIDES 71 mg/dl (<150); VLDL CHOLESTEROL 14 mg/dL (6-40)
[2019-10-30 06:24] LABS: HEMATOCRIT 38.3 % (37.0-47.0); MEAN CELL VOLUME 99.7 fl (81.0-99.0); MEAN CORPUSCULAR HGB 31.5 pg (27.0-31.0); MEAN CORPUSCULAR HGB CONC 31.6 g/dl (33.0-37.0); MEAN PLATELET VOLUME 10.2 fl (9.6-12.3); PLATELET COUNT AUTOMATED 316 10*3/uL (130-400); RED BLOOD COUNT 3.84 10*6/uL (4.10-5.10); RED CELL DISTRI WIDTH 15.1 % (0-14.5); WHITE BLOOD COUNT 8.3 10*3/uL (4.8-10.8)
[2019-10-30 06:28] LABS: THYROID STIM HORMONE (HS) 0.504 uIU/ml (0.358-4.75)
[2019-10-30 07:03] LABS: TOTAL CELLS COUNTED 100 #CELLS
[2019-10-30 07:04] LABS: PLATELET SUFFICIENCY NORMAL (NORMAL)
[2019-10-30 07:25] LABS: VITAMIN D, 25-HYDROXY 31.1 ng/mL (30-100)
[2019-10-30 08:00] VITALS: BP 95/54
[2019-10-30 12:00] VITALS: BP 124/81
[2019-10-30 16:00] VITALS: BP 90/57
[2019-10-30 20:00] VITALS: BP 100/62
[2019-10-31] VITALS: BP 102/56
[2019-10-31 06:02] LABS: BASO % 0.2 % (0.0-1.0); EOS % 0.1 % (1.0-4.0); HEMATOCRIT 33.8 % (37.0-47.0); LYMPH # 2.6 10*3/uL (1.3-4.4); LYMPH % 24.2 % (27.0-41.0); MEAN CELL VOLUME 101.8 fl (81.0-99.0); MEAN CORPUSCULAR HGB 31.6 pg (27.0-31.0); MEAN CORPUSCULAR HGB CONC 31.1 g/dl (33.0-37.0); MEAN PLATELET VOLUME 10.5 fl (9.6-12.3); MONO # 0.8 10*3/uL (0.1-1.0); MONO % 7.1 % (3.0-9.0); NEUT # 7.3 10*3/uL (2.3-7.9); PLATELET COUNT AUTOMATED 304 10*3/uL (130-400); RED BLOOD COUNT 3.32 10*6/uL (4.10-5.10); WHITE BLOOD COUNT 10.7 10*3/uL (4.8-10.8)
[2019-10-31 06:17] LABS: BUN 24 mg/dl (7-24); CHLORIDE 115 mmol/L (98-107); CREATININE 0.75 mg/dL (0.55-1.02); POTASSIUM 3.6 mmol/L (3.5-5.1); SODIUM 142 mmol/L (136-145)
[2019-10-31 06:28] LABS: ACT PARTIAL THROMBO TIME 37.4 SECONDS (20.0-32.1); INTERNATIONAL NORM RATIO 1.2 (2.0-3.5)
[2019-10-31 08:00] VITALS: BP 94/48
[2019-10-31 12:00] VITALS: BP 105/62
[2019-10-31 20:00] VITALS: BP 104/56
[2019-11-01] VITALS: BP 95/54
[2019-11-01 06:12] LABS: BASO % 0.2 % (0.0-1.0); EOS # 0.2 10*3/uL (0.0-0.4); EOS % 1.4 % (1.0-4.0); HEMATOCRIT 34.8 % (37.0-47.0); LYMPH # 3.4 10*3/uL (1.3-4.4); LYMPH % 30.6 % (27.0-41.0); MEAN CELL VOLUME 101.2 fl (81.0-99.0); MEAN CORPUSCULAR HGB 31.7 pg (27.0-31.0); MEAN CORPUSCULAR HGB CONC 31.3 g/dl (33.0-37.0); MONO # 0.8 10*3/uL (0.1-1.0); MONO % 7.3 % (3.0-9.0); NEUT # 6.7 10*3/uL (2.3-7.9); NEUT % 60.3 % (47.0-73.0); PLATELET COUNT AUTOMATED 311 10*3/uL (130-400); RED BLOOD COUNT 3.44 10*6/uL (4.10-5.10); WHITE BLOOD COUNT 11.1 10*3/uL (4.8-10.8)
[2019-11-01 06:24] LABS: INTERNATIONAL NORM RATIO 1.4 (2.0-3.5)
[2019-11-01 06:36] LABS: BUN 24 mg/dl (7-24); CHLORIDE 114 mmol/L (98-107); CREATININE 0.64 mg/dL (0.55-1.02); SODIUM 141 mmol/L (136-145)
[2019-11-01 08:00] VITALS: BP 110/64
[2019-11-01 12:00] VITALS: BP 115/64
[2019-11-01 16:00] VITALS: BP 130/85
[2019-11-01 20:00] VITALS: BP 106/68
[2019-11-02] VITALS: BP 100/65
[2019-11-02 06:20] LABS: BASO % 0.2 % (0.0-1.0); EOS # 0.2 10*3/uL (0.0-0.4); EOS % 1.5 % (1.0-4.0); HEMATOCRIT 35.1 % (37.0-47.0); LYMPH % 27.3 % (27.0-41.0); MEAN CELL VOLUME 99.4 fl (81.0-99.0); MEAN CORPUSCULAR HGB 31.4 pg (27.0-31.0); MEAN CORPUSCULAR HGB CONC 31.6 g/dl (33.0-37.0); MEAN PLATELET VOLUME 10.1 fl (9.6-12.3); MONO # 1.1 10*3/uL (0.1-1.0); MONO % 9.7 % (3.0-9.0); NEUT # 6.7 10*3/uL (2.3-7.9); NEUT % 61.1 % (47.0-73.0); PLATELET COUNT AUTOMATED 327 10*3/uL (130-400); RED BLOOD COUNT 3.53 10*6/uL (4.10-5.10); RED CELL DISTRI WIDTH 14.7 % (0-14.5)
[2019-11-02 06:33] LABS: BUN 22 mg/dl (7-24); CHLORIDE 115 mmol/L (98-107); CREATININE 0.57 mg/dL (0.55-1.02); POTASSIUM 4.1 mmol/L (3.5-5.1); SODIUM 143 mmol/L (136-145)
[2019-11-02 06:39] LABS: INTERNATIONAL NORM RATIO 1.5 (2.0-3.5)
[2019-11-02 08:00] VITALS: BP 111/65
[2019-11-02] MEDS ORDERED: Lovenox80 MG/0.8 SC (09:30)
[2019-11-02] MEDS ORDERED: COUMADIN6 M2 PO (09:30)
[2019-11-02] MEDS ORDERED: PREDNISONE10 MG PO (09:30)
== END 2019-11-02 11:26 | disposition home or self-care (01) | DRG 299 ==
LOC: ED 17:34 → 4E 23:13 → EDHOLD 23:13 → 4E 23:52
PROVIDERS: Hospitalist; Internal Medicine; Nurse Practitioner; ADMIT Family Medicine
DX: I82.621 Acute embolism and thrombosis of deep veins of right upper extremity (principal); J18.9 Pneumonia, unspecified organism; E43 Unspecified severe protein-calorie malnutrition; J44.1 Chronic obstructive pulmonary disease with (acute) exacerbation; D68.59 Other primary thrombophilia; I50.42 Chronic combined systolic (congestive) and diastolic (congestive) heart failure; J44.0 Chronic obstructive pulmonary disease with (acute) lower respiratory infection; I82.501 Chronic embolism and thrombosis of unspecified deep veins of right lower extremity; I95.9 Hypotension, unspecified; D75.89 Other specified diseases of blood and blood-forming organs; E87.8 Other disorders of electrolyte and fluid balance, not elsewhere classified; R73.9 Hyperglycemia, unspecified; R74.8 Abnormal levels of other serum enzymes; F17.210 Nicotine dependence, cigarettes, uncomplicated; F41.8 Other specified anxiety disorders; Z96.641 Presence of right artificial hip joint; E55.9 Vitamin D deficiency, unspecified; E53.8 Deficiency of other specified B group vitamins; D53.9 Nutritional anemia, unspecified; G89.29 Other chronic pain; Z96.652 Presence of left artificial knee joint; G62.9 Polyneuropathy, unspecified; F90.9 Attention-deficit hyperactivity disorder, unspecified type; E66.3 Overweight; Z71.6 Tobacco abuse counseling; Z86.14 Personal history of Methicillin resistant Staphylococcus aureus infection; Z98.84 Bariatric surgery status; Z90.710 Acquired absence of both cervix and uterus; Z90.79 Acquired absence of other genital organ(s); Z90.722 Acquired absence of ovaries, bilateral; Z90.49 Acquired absence of other specified parts of digestive tract; Z83.3 Family history of diabetes mellitus; Z82.49 Family history of ischemic heart disease and other diseases of the circulatory system; Z82.0 Family history of epilepsy and other diseases of the nervous system; Z88.5 Allergy status to narcotic agent; Z88.6 Allergy status to analgesic agent; Z91.09 Other allergy status, other than to drugs and biological substances; Z79.899 Other long term (current) drug therapy; Z68.29 Body mass index [BMI] 29.0-29.9, adult

== ENCOUNTER 2019-11-05 14:45 | Emergency (ER) | payer OTHER ==
[~2019-11-05] VITALS: Ht 177.8 cm; Wt 86.2 kg
[~2019-11-05 14:45] MED LIST changes: +COUMADIN6 M2 PO; +Lovenox80 MG/0.8 SC
[2019-11-05 15:37] LABS: BASO % 0.4 % (0.0-1.0); EOS % 0.3 % (1.0-4.0); HEMATOCRIT 35.6 % (37.0-47.0); LYMPH % 27.2 % (27.0-41.0); MEAN CELL VOLUME 101.7 fl (81.0-99.0); MEAN CORPUSCULAR HGB 31.4 pg (27.0-31.0); MEAN CORPUSCULAR HGB CONC 30.9 g/dl (33.0-37.0); MEAN PLATELET VOLUME 10.2 fl (9.6-12.3); MONO # 0.5 10*3/uL (0.1-1.0); MONO % 6.4 % (3.0-9.0); NEUT # 4.9 10*3/uL (2.3-7.9); NEUT % 65.4 % (47.0-73.0); PLATELET COUNT AUTOMATED 288 10*3/uL (130-400); RED CELL DISTRI WIDTH 14.8 % (0-14.5); WHITE BLOOD COUNT 7.5 10*3/uL (4.8-10.8)
[2019-11-05 15:48] LABS: ACT PARTIAL THROMBO TIME 39.6 SECONDS (20.0-32.1); INTERNATIONAL NORM RATIO 1.6 (2.0-3.5)
[2019-11-05 15:55] LABS: ALBUMIN 2.4 gm/dl (3.1-4.5); ALKALINE PHOSPHATASE 123 U/L (45-117); BUN 16 mg/dl (7-24); CHLORIDE 113 mmol/L (98-107); CREATININE 0.66 mg/dL (0.55-1.02); SGOT/AST 17 IU/L (3-35); SGPT/ALT 25 U/L (12-78); SODIUM 141 mmol/L (136-145)
[2019-11-05 16:03] LABS: TROPONIN I < 0.015 ng/ml (<0.045)
== END 2019-11-05 18:51 | disposition home health service (06) ==
LOC: ED 14:45
PROVIDERS: Family Medicine
DX: I82.401 Acute embolism and thrombosis of unspecified deep veins of right lower extremity (principal); F32.9 Major depressive disorder, single episode, unspecified; F41.9 Anxiety disorder, unspecified; I50.9 Heart failure, unspecified; G43.909 Migraine, unspecified, not intractable, without status migrainosus; J44.9 Chronic obstructive pulmonary disease, unspecified; F17.210 Nicotine dependence, cigarettes, uncomplicated; Z79.01 Long term (current) use of anticoagulants; Z88.5 Allergy status to narcotic agent; Z88.8 Allergy status to other drugs, medicaments and biological substances; Z79.899 Other long term (current) drug therapy

== ENCOUNTER 2019-12-10 20:11 | Inpatient (IN) | payer OTHER ==
[~2019-12-10] VITALS: Ht 177.8 cm; Wt 85.5 kg
[2019-12-10 20:16] VITALS: BP 120/71
[2019-12-10 20:54] LABS: BASO # 0.1 10*3/uL (0.0-0.1); BASO % 0.6 % (0.0-1.0); HEMATOCRIT 38.5 % (37.0-47.0); LYMPH # 2.1 10*3/uL (1.3-4.4); MEAN CELL VOLUME 89.5 fl (81.0-99.0); MEAN CORPUSCULAR HGB 30.2 pg (27.0-31.0); MEAN CORPUSCULAR HGB CONC 33.8 g/dl (33.0-37.0); MONO # 0.9 10*3/uL (0.1-1.0); MONO % 8.6 % (3.0-9.0); NEUT # 7.7 10*3/uL (2.3-7.9); NEUT % 71.6 % (47.0-73.0); PLATELET COUNT AUTOMATED 350 10*3/uL (130-400); RED CELL DISTRI WIDTH 14.5 % (0-14.5); WHITE BLOOD COUNT 10.8 10*3/uL (4.8-10.8)
[2019-12-10 21:04] LABS: ACT PARTIAL THROMBO TIME 34.3 SECONDS (20.0-32.1)
[2019-12-10 21:09] LABS: ALBUMIN 2.6 gm/dl (3.1-4.5); ALKALINE PHOSPHATASE 177 U/L (45-117); BUN 17 mg/dl (7-24); CHLORIDE 117 mmol/L (98-107); CREATININE 0.88 mg/dL (0.55-1.02); LIPASE 100 U/L (73-393); SGOT/AST 7 IU/L (3-35); SGPT/ALT 9 U/L (12-78); SODIUM 139 mmol/L (136-145); TOTAL PROTEIN 6.2 gm/dL (6.4-8.2)
[2019-12-10 21:11] LABS: POTASSIUM 2.3 mmol/L (3.5-5.1); TROPONIN I < 0.015 ng/ml (<0.045)
[2019-12-10 21:38] LABS: ACETAMINOPHEN (TYLENOL) < 5.0 ug/ml (10-30); ETHYL ALCOHOL < 3.0 mg/dl (<3)
[2019-12-10 22:48] LABS: BILIRUBIN NEGATIVE (NEGATIVE); BLOOD NEGATIVE (NEGATIVE); CLARITY CLEAR (CLEAR); COLOR YELLOW (YELLOW); GLUCOSE NEGATIVE (NEGATIVE); KETONE NEGATIVE (NEGATIVE); LEUKO ESTERASE NEGATIVE (NEGATIVE); NITRITE NEGATIVE (NEGATIVE); PH 6.5 (5.0-9.0); SPECIFIC GRAVITY 1.015 (1.005-1.030); UROBILINOGEN 0.2 E.U./dl (0.2-1.0)
[2019-12-10 22:51] LABS: URINE AMPHETAMINES < 1000 (1000ng/ml); URINE BARBITURATES < 200 (200ng/ml); URINE BENZODIAZEPINES < 200 (200ng/ml); URINE CANNABINOIDS (THC) < 50 (50ng/ml); URINE COCAINE < 300 (300ng/ml); URINE METHADONE < 300 (300ng/ml); URINE OPIATES > 300 (300ng/ml)
[2019-12-10 22:53] LABS: URINE PHENCYCLIDINE < 25 (25ng/ml)
[2019-12-10 23:01] LABS: BACTERIA 1+
[2019-12-11 00:03] VITALS: BP 117/78
--- NOTE | 2019-12-11 00:04 | NUR ---
PATIENT REFUSES WOUND PHOTOS
[2019-12-11 00:30] VITALS: BP 110/84
--- NOTE | 2019-12-11 00:30 | NUR ---
A 59, admitted to , under the services of LARON Vergara DO with a diagnosis of HYPOKALEMIA. Chief complaint is CHANGE IN MENTAL STATUS. Patient arrived via bed from ER. Monitor applied. Initial assessment completed. Vital signs taken and recorded. LARON VERGARA DO notified of admission to the unit. Orders received. See assessment for past medical history, medications and allergies. Patient and/or family oriented to unit. [facility]. Clothing/patient valuable form completed. BRANDON SYLVESTER
[2019-12-11] MEDS ORDERED: PERCOCET 7.5-31 EACH PO (01:01)
--- NOTE | 2019-12-11 01:02 | NUR ---
PATIENT ABLE TO VERIFY PAIN MEDICATION AND STATES THAT, THAT IS ALL SHE NEEDED TONIGHT SHE HAS NOT HAD ANY PAIN MEDICATION IN 1 WEEK DUE TO HER NEPHEW STEALING AND SELLING IT ALL. ALSO MEASURED PATIENTS WOUNDS UNDER BREASTS. NOTIFIED DR. VALVERDE OF WOUNDS AND WANT FOR PAIN MEDICATION
--- NOTE | 2019-12-11 01:30 | NUR ---
MULTIPLE SCABS NOTED ON BILATERAL ARMS AND ONE SMALL SCABED AREA AT MIDLINE OF ABDOMEN NOTED
--- NOTE | 2019-12-11 01:42 | NUR ---
ALSO NOTIFIED DR. VALVERDE OF PATIENTS REDNESS UNDER RIGHT BREAST EXTENDING UP AND INTO THE TOP OF THE BREAST. NOTIFIED HER THAT THE PATIENT REQUESTED TO USE THE SANTYL SHE BROUGHT FROM HOME FOR UNDERNEATH HER BREASTS
[2019-12-11] MEDS ORDERED: XARELTO20 M1 PO (01:44)
--- NOTE | 2019-12-11 01:48 | NUR ---
WENT TO ADMINISTER PAIN MEDICATION PATIENT STATED SHE WAS IN IMMENSE AMMOUNTS OF PAIN, IV ALSO BEEPING, PATIENT SLEEPING, WITH SNORING RESPIRATIONS. WILL CONTINUE TO MONITOR
[2019-12-11] MEDS ORDERED: SANTYL30 GM T (02:00)
--- NOTE | 2019-12-11 02:00 | NUR ---
PATIENT STATED SHE HAS THE WOUNDS UNDERNEATH OF HER BREASTS BECAUSE OF HER BRA RUBBING
--- NOTE | 2019-12-11 03:48 | NUR ---
OK PER DR. VALVERDE TO CHANGE START TIME OF FENTANYL PATCH SINCE PATIENT IS ASLEEP
--- NOTE | 2019-12-11 04:52 | NUR ---
PATIENT AT THIS TIME WOKE UP AND ASKED IF SHE COULD HAVE ANYTHING FOR PAIN SHE HAS BEEEN WAITING FOR SOMETHING ALL NIGHT. EXPLAINED TO PATIENT THAT THIS NURSE HAS BEEN IN AND OUT OF THE ROOM A COUPLE TIMES AND SHE HAS BEEN SLEEPING EVER SINCE.
[2019-12-11] MEDS ORDERED: LASIX40 MG PO (05:45)
--- NOTE | 2019-12-11 06:33 | NUR ---
PRN PERCOCET GIVEN AT THIS TIME FOR 8/10 PAIN IN PATIENT NECK/BACK AND LEGS. A&OX3 AT THIS TIME. CALL LIGHT WITHIN REACH, WILL CONTINUE TO MONITOR
[2019-12-11 06:38] LABS: BASO % 0.4 % (0.0-1.0); EOS # 0.1 10*3/uL (0.0-0.4); EOS % 1.3 % (1.0-4.0); HEMATOCRIT 38.3 % (37.0-47.0); LYMPH # 2.9 10*3/uL (1.3-4.4); LYMPH % 30.9 % (27.0-41.0); MEAN CELL VOLUME 88.9 fl (81.0-99.0); MEAN CORPUSCULAR HGB 29.9 pg (27.0-31.0); MEAN CORPUSCULAR HGB CONC 33.7 g/dl (33.0-37.0); MEAN PLATELET VOLUME 10.4 fl (9.6-12.3); MONO # 0.9 10*3/uL (0.1-1.0); MONO % 9.7 % (3.0-9.0); NEUT # 5.4 10*3/uL (2.3-7.9); NEUT % 57.5 % (47.0-73.0); PLATELET COUNT AUTOMATED 355 10*3/uL (130-400); RED BLOOD COUNT 4.31 10*6/uL (4.10-5.10); RED CELL DISTRI WIDTH 14.3 % (0-14.5); WHITE BLOOD COUNT 9.3 10*3/uL (4.8-10.8)
[2019-12-11 06:51] LABS: BUN 15 mg/dl (7-24); CHLORIDE 116 mmol/L (98-107); CREATININE 0.73 mg/dL (0.55-1.02); POTASSIUM 2.6 mmol/L (3.5-5.1); SODIUM 141 mmol/L (136-145)
[2019-12-11 08:00] VITALS: BP 118/86
[2019-12-11] MEDS ORDERED: IMODIUM A-D2 M2 PO (08:20)
--- NOTE | 2019-12-11 11:24 | NUR ---
AWARE MED REC WAS UPDATED. SAID HE WOULD LOOK AT HER HOME MEDS.
--- NOTE | 2019-12-11 11:37 | NUR ---
BILAT UNDERBREAT WOUNDS CHANGED AND RE BANDAGED. TOLERATED WELL.
--- NOTE | 2019-12-11 11:39 | NUR ---
PERCOCET GIVEN FOR COMPLAINTS OF LEG PAIN RATED 8/10. CALL LIGHT IN REACH. WILL MONITOR.
[2019-12-11 12:00] VITALS: BP 104/61
--- NOTE | 2019-12-11 12:23 | NUR ---
PER PT, PERCOCET WAS EFFECTIVE FOR EARLIER COMPLAINTS.
[2019-12-11 14:19] LABS: BUN 17 mg/dl (7-24); CHLORIDE 117 mmol/L (98-107); CREATININE 0.87 mg/dL (0.55-1.02); SODIUM 141 mmol/L (136-145)
--- NOTE | 2019-12-11 15:56 | NUR ---
TYLENOL GIVEN FOR COMPLAINTS OF LEG PAIN. WILL MONITOR. CALL LIGHT WITHIN REACH.
[2019-12-11 16:00] VITALS: BP 110/73
--- NOTE | 2019-12-11 16:46 | NUR ---
PER PT, TYLENOL WAS INEFFECTIVE FOR PAIN BUT WILL "WAIT A LITTLE LATER FOR PERCOCET." CALL LIGHT IN REACH. TYLENOL MINIMALLY EFFECTIVE.
--- NOTE | 2019-12-11 19:56 | NUR ---
PRN PERCOCET GIVEN FOR PAIN IN THE KNEE 04/28. CALL LIGHT WITHIN REACH, WILL MONITOR.
[2019-12-11 20:00] VITALS: BP 100/84
--- NOTE | 2019-12-11 20:16 | NUR ---
SPOKE WITH OF PATIENTS MED REC BEING UPDATED. ORDER RECIEVED TO CONTINUE PATIENTS XARELTO AND VISTARIL
--- NOTE | 2019-12-11 20:56 | NUR ---
PRN PERCOCET APPEARS EFFECTIVE, PT SLEEPING
--- NOTE | 2019-12-11 22:59 | NUR ---
NOTIFIED DR. CASTRO OF PATIENTS ONE POSITIVE BLOOD CULTURE BOTTLE. ORDERS RECIEVED FOR MORE BLOOD CULTURES AND TO START VANCOMYCIN. ALSO NOTIFIED HIM OF PATIENTS IV SITE IS CURRENTLY IN THE LEFT SIDE OF THE NECK AND THAT TOMORROW SHE MAY NEED A MIDLINE IF SHE NEEDS ON USP ATB
[2019-12-12] VITALS: BP 111/68
--- NOTE | 2019-12-12 00:36 | NUR ---
LAB CAME TO DRAW REPEAT BLOOD CULTURES. IV VANC INITIATED PER ORDER. PT ASSISTED UP TO BATHROOM AND BACK INTO BED. PO FLEXERIL ADMINISTERED PER REQUEST FOR C/O MUSCLE SPASMS & PAIN IN BL KNEES. WILL MONITOR EFFECTIVENESS. CALL LIGHT IN REACH. BED ALARM INTACT.
--- NOTE | 2019-12-12 02:39 | NUR ---
PO PERCOCET ADMINSITERED PER PRN ORDER FOR C/O R KNEE PAIN RATED 9/10. WILL MONITOR EFFECTIVENESS. CALL LIGHT IN REACH. BED ALARM INTACT.
--- NOTE | 2019-12-12 02:54 | NUR ---
ELECTRODES REPLACED AT THIS TIME. PT DENIES ANY NEEDS. WILL MONITOR. CALL LIGHT IN REACH.
[2019-12-12 06:49] LABS: BASO # 0.1 10*3/uL (0.0-0.1); BASO % 0.7 % (0.0-1.0); HEMATOCRIT 36.2 % (37.0-47.0); LYMPH # 3.3 10*3/uL (1.3-4.4); LYMPH % 41.4 % (27.0-41.0); MEAN CELL VOLUME 91.2 fl (81.0-99.0); MEAN CORPUSCULAR HGB CONC 32.9 g/dl (33.0-37.0); MEAN PLATELET VOLUME 10.2 fl (9.6-12.3); MONO # 0.8 10*3/uL (0.1-1.0); NEUT # 3.8 10*3/uL (2.3-7.9); NEUT % 47.5 % (47.0-73.0); PLATELET COUNT AUTOMATED 315 10*3/uL (130-400); RED BLOOD COUNT 3.97 10*6/uL (4.10-5.10); RED CELL DISTRI WIDTH 14.6 % (0-14.5)
[2019-12-12 07:07] LABS: BUN 14 mg/dl (7-24); CHLORIDE 117 mmol/L (98-107); CREATININE 0.55 mg/dL (0.55-1.02); POTASSIUM 3.5 mmol/L (3.5-5.1); SODIUM 139 mmol/L (136-145)
[2019-12-12 07:44] VITALS: BP 118/70
--- NOTE | 2019-12-12 08:56 | NUR ---
FLEXERIL GIVEN FOR COMPLAINTS OF ACHES AND PAIN PER PT REQUEST. CALL LIGHT IN REACH. WILL MONITOR.
--- NOTE | 2019-12-12 09:54 | NUR ---
PER PT, FLEXERIL WAS EFFECTIVE. NO FURTHER COMAPLAINTS. CALL LIGHT IN REACH.
--- NOTE | 2019-12-12 10:00 | NUR ---
WOUND CARE COMPLETED. TOLERATED DRSG CHANGE WELL.
--- NOTE | 2019-12-12 11:25 | NUR ---
PERCOCET GIVEN FOR COMPLAINTS OF KNEE PAIN 02/26. CALL LIGHT IN REACH, WILL MONITOR.
[2019-12-12 12:00] VITALS: BP 97/58
--- NOTE | 2019-12-12 12:16 | NUR ---
PER PT, PERCOCET WAS EFFECTIVE.
[2019-12-12 16:00] VITALS: BP 99/82
[2019-12-12] MEDS ORDERED: GABAPENTIN400 MG PO (16:01)
--- NOTE | 2019-12-12 16:02 | NUR ---
REQUESTING PAIN MEDS OR MUSCLE RELAXER. INFORMED HER SHE COULD ONLY HAVE ONE MORE PERCOCET PER THE EMAR AND SHE HAD TO WAIT AT LEAST 1 MORE HOUR FOR HER FLEXERIL PER THE EMAR. ASKED IF SHE WOULD LIKE TO TRY TYLENOL FOR THE TIME BEING SHE AGREED. SEE MAR.
--- NOTE | 2019-12-12 16:06 | NUR ---
TYLENOL GIVEN FOR COMPLAINTS OF MUSCLE ACHES. WILL MONITOR. CALL LIGHT IN REACH.
--- NOTE | 2019-12-12 16:49 | NUR ---
TYLENOL INEFFECTIVE FOR COMPLAINTS. CALL LIGHT IN REACH. WILL GIVE FLEXERIL WHEN ABLE.
--- NOTE | 2019-12-12 17:05 | NUR ---
FLEXERIL GIVEN WITH SCHEDULED PO MEDS FOR MUSCLE ACHES/SPASMS. TOLERATED WELL. WILL MONITOR
--- NOTE | 2019-12-12 18:41 | NUR ---
PERCOCET GIVEN FOR COMPLAINTS OF CHRONIC LEG AND LOWER BACK PAIN. CALL LIGHT IN REACH. WILL MONITOR.
[2019-12-12 20:00] VITALS: BP 148/90
--- NOTE | 2019-12-12 20:09 | NUR ---
PATIENT ASLEEP IN BED. RESPIRATIONS EASY. NO S/S OF DISTRESS NOTED. WILL MONITOR. CALL LIGHT IN REACH.
--- NOTE | 2019-12-12 22:38 | NUR ---
IV VANC INFUSION INITIATED PER ORDER IN L EJ IV SITE. WILL MONITOR. PT DENIES ANY NEEDS. CALL LIGHT IN REACH.
[2019-12-13] VITALS: BP 98/50
[2019-12-13 00:30] VITALS: BP 100/58
--- NOTE | 2019-12-13 07:20 | NUR ---
24 HR chart check completed.
--- NOTE | 2019-12-13 07:48 | NUR ---
MEDICATED WITH PO PERCOCET ORDERED PER PT REQUEST FOR C/O BILATERAL KNEE PAIN RATED 9/10.
[2019-12-13 08:00] VITALS: BP 90/54
--- NOTE | 2019-12-13 08:40 | NUR ---
MEDICATION SOMEWHAT EFFECTIVE FOR KNEE PAIN. R KNEE XRAY TO BE PERFORMED TODAY. WOUND CARE IN TO SEE PT REGARDING BILAT BREAST WOUNDS. ORDERS PENDING.
[2019-12-13 08:44] LABS: BUN 13 mg/dl (7-24); CHLORIDE 118 mmol/L (98-107); CREATININE 0.64 mg/dL (0.55-1.02); POTASSIUM 3.4 mmol/L (3.5-5.1); SODIUM 142 mmol/L (136-145)
--- NOTE | 2019-12-13 09:12 | NUR ---
HARVEY NGUYỄN [id number] Please refer to the physician's history and physical for past medical history, comorbid conditions, and allergies. Diagnosis: CHANGE IN MENTAL STATUS ACUTE HYPOKALEMIA Mike Score: 15,AT RISK WOUND DESCRIPTIONS: This nurse along with with Nevaeh Butterfield RN evaluated patient for skin impairments. Wound Number: 1 Location of the wound: left breast Thickness: Partial Size: 2.0cm x 12.0cm x 0.1cm Tunneling: none Undermining: none Sinus Tract: none Presence of Exudate: Serousanguineous Amount: Moderate Color: Red, pink Odor: Musty Periwound Skin Appearance: Scar tissue Wound edges: approximated Pain (associated with wound): none at time of assessment How does patient state this happened? pt stated everything was healed up and she wore a bra three days in a row and they opened back up Wound Number: 2 Location of the wound: right breast Thickness: Partial Size: 2.7cm x 9.0cm x 0.1cm Tunneling: none Undermining: none Sinus Tract: none Presence of Exudate: Serousanguineous Amount: Moderate Color: Red, pink Odor: Musty Periwound Skin Appearance: Scar tissue Wound edges: approximated Pain (associated with wound): none at time of assessment How does patient state this happened? pt stated everything was healed up and she wore a bra three days in a row and they opened back up Surface the patient is resting on: Isoflex SKIN PREVENTION RECOMMENDATION: 1. Pressure redistribution support surface as appropriate 2. Elevate heels 3. Remove boots/TEDS every shift and reapply 4. Head of bed 30 degrees as tolerated 5. Assess nutrition and hydration 6. Manage moisture 7. Avoid the use of containment devices while in bed 8. Use absorptive products on surfaces limit layers of linens on bed 9. Turn and reposition every 1-2 hours in bed and every 1 hour in chair as tolerated 10. Weight shifts every 15 minutes while up in chair 11. Offloading with pillows or device to keep heels elevated off bed 12. Monitor skin at least every shift 13. Inspect under medical devices twice a day WOUND TREATMENT RECOMMENDATIONS: Cleanse bilateral breasts with nss and apply nystatin powder every 8 hours and apply abd pad Patient states she will be following with visiting nurses upon discharge. Educated on intradry for possible useage at home
--- NOTE | 2019-12-13 09:27 | NUR ---
LOPRESSOR HELD AT THIS TIME FOR HYPOTENSION.
--- NOTE | 2019-12-13 09:56 | NUR ---
MEDICATED WITH IV ZOFRAN ORDERED PER PT REQUEST FOR C/O NAUSEA.
--- NOTE | 2019-12-13 10:45 | NUR ---
MEDICATED EFFECTIVE FOR NAUSEA.
--- NOTE | 2019-12-13 11:02 | NUR ---
Renae Barahona APRN-TOW TRUCK OPERATOR notified of wound care recommendations.
[2019-12-13 12:00] VITALS: BP 102/63
--- NOTE | 2019-12-13 13:43 | NUR ---
MEDICATED WITH PO PERCOET ORDERED PER PT REQUEST FOR C/O PAIN TO R KNEE RATED 9/10.
--- NOTE | 2019-12-13 14:30 | NUR ---
MEDICATION EFFECTIVE FOR PAIN.
--- NOTE | 2019-12-13 15:35 | NUR ---
Meat Lugger in to talk to patient. Patient states lives at HOME with HAS A FRIEND STAYING WITH HER SINCE SURGERY. There are 6 steps in the home. Physician: DR KINCAID Pharmacy: [facility] health services: [facility] Patient's level of ADLs: MINIMAL ASSIST Patient has working utilities: YES DME: [facility] Follow-up physician's appointment after d/c: WILL BE MADE BY HOSPITALIST NURSE DIRECTOR ON DISCHARGE Does patient want to access PORTAL?: NO Discharge plan PT LIVES AT HOME ALONE, BUT HAS A FRIEND STAYING WITH HER SINCE HER SURGERY. SHE ALSO STATES SHE HAS OV. DENIES SHE WILL HAVE ANY OTHER NEEDS ON DISCHARGE. PLAN IS TO RETURN HOME WHEN MEDICALLY STABLE. WILL CONTINUE TO FOLLOW. STATES SHE WILL HAVE A RIDE HOME.. [place]
[2019-12-13 16:00] VITALS: BP 90/56
--- NOTE | 2019-12-13 18:07 | NUR ---
MEDICATED WITH PO PERCOCET ORDERED PER PT REQUEST FOR C/O R KNEE PAIN RTAED 02/26.
--- NOTE | 2019-12-13 19:36 | NUR ---
MEDICATION EFFECTIVE FOR PAIN.
[2019-12-13 20:00] VITALS: BP 106/67
--- NOTE | 2019-12-13 20:05 | NUR ---
IV IN L EJ PAINFUL PER PT. DIFFICULT TO FLUSH. IV SITE REMOVED AND DSD APPLIED. PRESSURE HELD. NEW 24G IV SITE INITIATED IN R FOREARM PER POLICY. PT TOLERATED WELL.
--- NOTE | 2019-12-13 20:27 | NUR ---
NOTIFIED OF PATIENT'S REQUEST FOR SOMETHING FOR YEAST INFECTION. NEW ORDERS TO FOLLOW.
[2019-12-14] VITALS: BP 103/65
--- NOTE | 2019-12-14 00:02 | NUR ---
PO PERCOCET ADMINISTERED PER PRN ORDER FOR C/O PAIN IN R KNEE RATED 8/10. WILL MONITOR. CALL LIGHT IN REACH.
--- NOTE | 2019-12-14 05:39 | NUR ---
RN EXAMINED PATIENT'S ENTIRE BODY. NO DURAGESIC PATCH FOUND TO WASTE. PT HAD GIVEN SELF BATH LAST NIGHT. STATES PATCH PROBABLY CAME OFF THEN. NEW DURAGESIC PATCH APPLIED TO R BACK SHOULDER AND SECURED WITH TAPE. WILL MONITOR EFFECTIVENESS.
--- NOTE | 2019-12-14 07:58 | NUR ---
FLEXERIL GIVEN FOR C/O MUSCLE SPASMS. CALL LIGHT IN REACH. WILL MONITOR.
[2019-12-14 08:00] VITALS: BP 122/85
--- NOTE | 2019-12-14 08:46 | NUR ---
FLEXERIL INEFFECTIVE. WILL GIVE PERCOCET. CALL LIGHT WITHIN REACH.
--- NOTE | 2019-12-14 09:10 | NUR ---
PERCOCET GIVEN FOR CHRONIC KNEE PAIN, GENERALIZED PAIN. CALL LIGHT WITHIN REACH.
[2019-12-14] MEDS ORDERED: NYSTOP60 GM T (09:55)
[2019-12-14 10:36] LABS: BUN 17 mg/dl (7-24); CHLORIDE 115 mmol/L (98-107); CREATININE 0.64 mg/dL (0.55-1.02); SODIUM 140 mmol/L (136-145)
--- NOTE | 2019-12-14 10:48 | NUR ---
WOUND PICS/MEASUREMENTS TAKEN FOR DISCHARGE. WOUND CARE COMPLETED.
--- NOTE | 2019-12-14 11:05 | NUR ---
Discharge instructions reviewed with patient/family. Patient receptive and verbalizes understanding. Follow-up care arranged. Written instructions given to patient/family. CARMINE BRANDON
--- NOTE | 2019-12-14 12:50 | NUR ---
REFERRAL FOR HH FAXED TO [facility].
== END 2019-12-14 11:06 | disposition home health service (06) | DRG 91 ==
LOC: ED 20:11 → 5E 23:35 → EDHOLD 23:35 → 5E 23:54
PROVIDERS: Emergency Medicine Emergency Medical Services; Internal Medicine; Registered Nurse; Student in an Organized Health Care Education/Training Program; ADMIT Family Medicine
DX: G92 Toxic encephalopathy (principal); E43 Unspecified severe protein-calorie malnutrition; I50.42 Chronic combined systolic (congestive) and diastolic (congestive) heart failure; R65.10 Systemic inflammatory response syndrome (SIRS) of non-infectious origin without acute organ dysfunction; E87.6 Hypokalemia; G89.29 Other chronic pain; I44.7 Left bundle-branch block, unspecified; E87.8 Other disorders of electrolyte and fluid balance, not elsewhere classified; R73.9 Hyperglycemia, unspecified; J43.9 Emphysema, unspecified; F41.8 Other specified anxiety disorders; E55.9 Vitamin D deficiency, unspecified; E53.8 Deficiency of other specified B group vitamins; K58.9 Irritable bowel syndrome, unspecified; F17.210 Nicotine dependence, cigarettes, uncomplicated; G62.9 Polyneuropathy, unspecified; F90.9 Attention-deficit hyperactivity disorder, unspecified type; M25.562 Pain in left knee; Z71.6 Tobacco abuse counseling; Z86.718 Personal history of other venous thrombosis and embolism; Z86.14 Personal history of Methicillin resistant Staphylococcus aureus infection; Z98.84 Bariatric surgery status; Z96.652 Presence of left artificial knee joint; Z96.641 Presence of right artificial hip joint; Z90.49 Acquired absence of other specified parts of digestive tract; Z82.49 Family history of ischemic heart disease and other diseases of the circulatory system; Z83.3 Family history of diabetes mellitus; Z82.0 Family history of epilepsy and other diseases of the nervous system; Z79.01 Long term (current) use of anticoagulants; Z79.899 Other long term (current) drug therapy; Z68.27 Body mass index [BMI] 27.0-27.9, adult